=== PATIENT | male | born 1950 | race Caucasian/White ===

== ENCOUNTER 2017-01-04 10:03 | Observation (INO) | payer OTHER, MEDICARE ==
[2017-01-04] MEDS ORDERED: Zofran 4 MG/2 ML VIAL IV PRN (13:12)
[2017-01-04] MEDS ORDERED: Sodium Chloride 0.9% 1000 ML 1,000 ML IV SCH (13:15)
[2017-01-04] MEDS ORDERED: NON-FORMULARY ITEM (Albuterol/Ipratropium Cc** [Combivent Inhaler Common Canister**] 1 PUF IH PRN (13:15)
--- NOTE | 2017-01-04 13:25 | XRAY ---
Indication: Bronchitis. Comparison: None PA/lateral chest hyperinflated and clear. A few calcified granulomas. Heart is not enlarged. Vascularity normal. Bony thorax intact with mild osteopenia and degenerative changes. Impression: Nonacute hyperinflated chest with chronic features.
[2017-01-04 13:26] LABS: Mean Cell Volume 77.7 fl (78-100); Mean Corpuscular Hemoglobin 25.7 pg (26-32); Mean Platelet Volume 9.3 fl (6-9.5); Platelet Count 220 K/mm3 (150-450); Red Blood Count 5.21 M/mm3 (4.1-5.6); Red Cell Distribution Width 14.2 % (11.5-14.0); White Blood Count 5.9 K/mm3 (4.0-10.5)
[2017-01-04 14:05] LABS: ALBUMIN 3.2 g/dL (3.4-5.0); ANION GAP 13.3 MEQ/L (5-15); BILIRUBIN,TOTAL 0.3 mg/dL (0.2-1.0); Total Protein 7.2 gm/dL (6.4-8.2)
[2017-01-04] MEDS: DUONEB 0.5-3 MG/3 ml Neb IH SCH ×2 (14:08→19:45)
[2017-01-04 14:21] LABS: BAND 3 % (0.0-2.0); Eosinophil 3 % (0.00-3.0); Total Cells Counted 100
[2017-01-04 14:23] LABS: Platelet Estimate NORMAL (NORMAL)
[2017-01-04 14:26] LABS: ANISOCYTOSIS 1+
[2017-01-04] MEDS: Sodium Chloride 0.9% 1000 ML 1,000 ML IV SCH (14:41)
[2017-01-04] MEDS: MAALOX ES 30 ML UNIT DOSE PO PRN (20:09)
[2017-01-04] MEDS ORDERED: ZYLOPRIM 100 MG PO SCH (22:00)
[2017-01-04] MEDS ORDERED: NON-FORMULARY ITEM (Carvedilol [Coreg] 25 MG) PO SCH (22:00)
[2017-01-04] MEDS: COREG 12.5 MG PO SCH (22:48)
[2017-01-05] MEDS: DUONEB 0.5-3 MG/3 ml Neb IH SCH ×2 (00:49→07:08)
[2017-01-05] MEDS: Sodium Chloride 0.9% 1000 ML 1,000 ML IV SCH ×2 (01:10→11:02)
[2017-01-05] MEDS: COREG 12.5 MG PO SCH (08:04)
[2017-01-05] MEDS ORDERED: [UNRECOGNIZED DRUG - OTHER] PO SCH (10:00)
[2017-01-05] MEDS ORDERED: hydroDIURIL 25 MG PO SCH (10:00)
[2017-01-05] MEDS ORDERED: HYDROCHLOROTHIAZIDE PO SCH (10:00)
[2017-01-05] MEDS ORDERED: NORVASC 5 MG PO SCH (10:00)
[2017-01-05] MEDS ORDERED: LISINOPRIL PO SCH (10:00)
[2017-01-05] MEDS ORDERED: ECOTRIN 81 MG PO SCH (10:00)
[2017-01-05] MEDS ORDERED: Zestril 20 MG PO SCH (10:00)
[2017-01-05] MEDS ORDERED: NON-FORMULARY ITEM (Fluticasone/Vilanterol [Breo Ellipta 100-25 Mcg Inh] 1 EACH) IH SCH (10:00)
[2017-01-05 11:54] VITALS: BP 139/68
[2017-01-05] MEDS ORDERED: DUONEB 0.5-3 MG/3 ml Neb IH SCH (13:00)
[2017-01-05 15:23] LABS: Mean Cell Volume 78.3 fl (78-100); Mean Corpuscular Hemoglobin 25.4 pg (26-32); Mean Platelet Volume 9.5 fl (6-9.5); Platelet Count 182 K/mm3 (150-450); Red Cell Distribution Width 14.1 % (11.5-14.0)
[2017-01-05] MEDS: MAALOX ES 30 ML UNIT DOSE PO PRN (15:33)
[2017-01-05] MEDS ORDERED: LEVOFLOXACIN 750MG/150ML D5W 150 ML IV SCH (16:00)
[2017-01-05 16:14] LABS: ALBUMIN 2.7 g/dL (3.4-5.0); ALKALINE PHOSPHATASE 65 U/L (46-116); ANION GAP 11.6 MEQ/L (5-15); BILIRUBIN,TOTAL 0.2 mg/dL (0.2-1.0); BLOOD UREA NITROGEN 15 mg/dL (9-20); CHLORIDE 107 mEq/L (98-107); Carbon Dioxide 28.2 mEq/L (21-32); Glucose 103 MG/DL (70-110); Potassium 3.5 mEq/L (3.5-5.1); SGOT/AST 34 U/L (15-37); SGPT/ALT 43 U/L (12-78); SODIUM 143 mEq/L (136-145); Total Protein 6.2 gm/dL (6.4-8.2)
[2017-01-05 17:08] VITALS: PULSE 59; O2SAT 94
[2017-01-05 18:50] LABS: Basophil 1 % (0.0-1.0); Eosinophil 3 % (0.00-3.0); Total Cells Counted 100
[2017-01-05 18:54] LABS: ANISOCYTOSIS 1+; Platelet Estimate NORMAL (NORMAL)
[2017-01-05] MEDS ORDERED: Advair Hfa 115/21 Common canister IH SCH (19:00)
--- NOTE | 2017-01-06 13:24 | DS ---
DISCHARGE DIAGNOSES: 1) ACUTE BRONCHITIS, CLINICALLY IMPROVED. 2) DEHYDRATION, CLINICALLY IMPROVED. 3) HISTORY OF DIARRHEA, RESOLVING. 4) HISTORY OF HYPERTENSION/CORONARY ARTERY DISEASE. HOSPITAL COURSE: Keyur Guerra is a 66 year-old male with past medical history of hypertension, coronary artery disease. He was seen by Dr. Jc in office yesterday with symptoms of bronchitis and also he had developed some diarrhea. Please refer to Dr. cJ's history and physical for details. Essentially he was admitted with diagnosis of bronchitis and dehydration. Lab work up on admission was notable for unremarkable CBC. CMP was notable for BUN of 27, creatinine 1.87. He was placed on IV fluids, PRN Zofran. He was placed on nebulization. During his further course he improved clinically. At the time of my evaluation this afternoon, the patient that he was overall feeling better. He did have two episodes of diarrhea earlier today however denied any abdominal pain, nausea, vomiting. He was able to tolerate diet well. He was still having some cough. Appeared comfortable. He was wishing to go home. PHYSICAL EXAMINATION: VITAL SIGNS: Blood pressure 139/68, heart rate 61, respiratory rate 16, temperature 98F. Oxygen saturation 96% on room air. HEENT: Normocephalic. No pallor or icterus is noted. NECK: No JVD is present. CVS: S1, S2 present. RESPIRATORY: Breath sounds are bilaterally diminished. ABDOMEN: Obese, soft, nontender. NEURO: He is alert, oriented x3. EXTREMITIES: No edema on bilateral lower extremities. LABORATORY DATA AND TESTS: Labs from today show CBC with white blood cell 4, hemoglobin 11.7, hematocrit 33. Today's CMP with BUN 15, creatinine 1.19. Chest x-ray from yesterday had shown no acute changes. Medications were reviewed. ASSESSMENT: As outlined in discharge diagnosis: PLAN: The patient was admitted with bronchitis and dehydration. He was placed on IV fluids and improved clinically, remained hemodynamically stable. Also he did report some diarrhea. Work up for that was ordered. However eventually his diarrhea had resolved and therefore work up was not sent. On evaluation today I started the patient on antibiotic for symptoms of bronchitis. He did receive one dose IV prior to discharge and will continue on those orally upon discharge. The rest of his course was essentially more or less unremarkable. He improved clinically. He ambulated with stable oxygen saturation. As noted earlier he has been tolerating diet. He overall feels well and was wishing to go home. He was discharged home in stable condition. Please refer to discharge medication list from 01/05/2017 for details of medications on discharge. Essentially the patient will be continued on his home medications. I have advised him to drink ample p.o. fluids. He was advised to start oral Levaquin as directed (every other day for the next four days) until complete. I advised him to make follow up appointment in the office in one week. Compliance with diet and medications was stressed. I have advised to return to the Emergency [facility] if any new signs and symptoms or reappearance of previous signs and symptoms are noted. Additionally, will also follow up blood work as outpatient next week. The patient's clinical condition, work-up results and plan of management and plan after discharge as noted above were discussed with patient. He seem to be in understanding and agreement. Discussed with patient's nurse. Please refer to the patient's chart, diagnostic work up and consult notes for details. Please refer to medication list from 01/05/2017 for details of medications on discharge.
[2017-01-06] MEDS ORDERED: Levofloxacin 500MG/100ML D5W 100 ML IV SCH (16:00)
== END 2017-01-05 17:42 | disposition home or self-care (01) ==
LOC: MED SURG 10:20
PROVIDERS: ADMIT General Practice; ATTEND General Practice
DX: J20.9 Acute bronchitis, unspecified (principal); A09 Infectious gastroenteritis and colitis, unspecified; E86.0 Dehydration; R19.7 Diarrhea, unspecified; I10 Essential (primary) hypertension; I25.10 Atherosclerotic heart disease of native coronary artery without angina pectoris
CPT/HCPCS: 36415; 71020; 80053; 85025; 94640; 94760; G0378; J1956

== ENCOUNTER 2018-03-09 14:30 | Observation (INO) | payer OTHER, MEDICARE ==
[2018-03-09] MEDS ORDERED: Sodium Chloride 0.9% 1000 ML 1,000 ML IV SCH (15:00)
[2018-03-09] MEDS ORDERED: DUONEB 0.5-3 MG/3 ml Neb IH ONE (15:19)
[2018-03-09] MEDS: DUONEB 0.5-3 MG/3 ml Neb IH SCH ×2 (15:22→19:03)
[2018-03-09 15:41] LABS: Hemoglobin 10.8 gm/dl (12.5-18.0); Mean Corpuscular Hemoglobin 25.5 pg (26-32); Mean Corpuscular Hgb Concent. 32.7 g/dl (32-36); Mean Platelet Volume 9.1 fl (6-9.5); Platelet Count 300 K/mm3 (150-450); Red Blood Count 4.23 M/mm3 (4.1-5.6); Red Cell Distribution Width 13.7 % (11.5-14.0); White Blood Count 10.3 K/mm3 (4.0-10.5)
[2018-03-09 15:58] LABS: ALBUMIN 3.2 g/dL (3.5-5.0); ALKALINE PHOSPHATASE 75 U/L (38-126); ANION GAP 11.5 MEQ/L (5-15); BLOOD UREA NITROGEN 13 mg/dL (9-20); CHLORIDE 97 mmol/L (98-107); Calcium 8.7 mg/dL (8.4-10.2); Carbon Dioxide 29 mmol/L (22-30); Creatinine 1 1.11 mg/dL (0.66-1.25); Glucose 102 mg/dL (74-106); Potassium 3.3 mmol/L (3.5-5.1); SGOT/AST 27 U/L (17-59); SGPT/ALT 21 U/L (0-50); SODIUM 135 mmol/L (137-145); Total Protein 6.5 g/dL (6.3-8.2)
--- NOTE | 2018-03-09 15:59 | XRAY ---
Indication: Bronchitis. Comparison: January 04, 2017. PA/lateral chest again hyperinflated with a few incidental calcified granulomas. No focal infiltrate, consolidation, or large effusion. Heart is not enlarged. Bony thorax intact again with mild degenerative changes. Impression: Stable nonacute hyperinflated chest with chronic features.
[2018-03-09] MEDS: ROCEPHIN 1 Gm-D5w 50 ml Bag** 1 G/50 ML IVPB IV SCH (16:07)
[2018-03-09 16:09] LABS: NT PRO BNP 696 pg/mL (0-900); TROPONIN < 0.012 ng/mL (0.000-0.034)
[2018-03-09] MEDS: solu-MEDROL 125 MG IV SCH ×2 (16:09→22:06)
[2018-03-09] MEDS: Zithromax 500 MG/ 250 ML NaCl Premix 500 MG/250 ML IVPB IV SCH (16:49)
[2018-03-09] MEDS: Advair Hfa 115/21 Common canister IH SCH (19:05)
--- NOTE | 2018-03-09 19:42 | PCM.HP ---
History of Present Illness - Chief Complaint Chief Complaint: c/o cough and shortness of breath History of Present Illness: is a 67 year old male.Came to the office with complaining of worsening shortness of breath, fever, chills for last 4 days. Patient is also complaining of generalized weakness and lethargically and having chest heaviness. - Review of Systems Constitutional: Fever, Weakness, No Chills Eyes: No Symptoms Ears, Nose, & Throat: No Symptoms Respiratory: Cough, Orthopnea, Short Of Breath, Wheezing Cardiac: No Chest Pain, No Edema, No Syncope Abdominal/Gastrointestinal: No Abdominal Pain, No Nausea, No Vomiting, No Diarrhea Genitourinary Symptoms: No Dysuria Musculoskeletal: No Back Pain, No Neck Pain Skin: No Rash Neurological: No Dizziness, No Focal Weakness, No Sensory Changes Psychological: No Symptoms Endocrine: No Symptoms Hematologic/Lymphatic: No Symptoms Immunological/Allergic: No Symptoms Medications & Allergies Home Medications: Home Medication List Aspirin EC 81 mg [Ecotrin 81 mg] 81 mg PO DAILY 11/19/13 [History Confirmed 03/09/18] Carvedilol [Coreg] 25 mg PO BID 11/19/13 [History Confirmed 03/09/18] Lisinopril/Hydrochlorothiazide [Lisinopril-Hctz 20-12.5 mg Tab] 1 tablet PO DAILY 11/19/13 [History Confirmed 03/09/18] Albuterol/Ipratropium cc [Combivent Inhaler COMMON CANISTER] 1 puff IH QIDPRN PRN 01/04/17 [History Confirmed 03/09/18] Allopurinol 100 mg [Zyloprim 100 mg] 100 mg PO HS 01/04/17 [History Confirmed 03/09/18] Amlodipine Besylate 5 mg [Norvasc 5 mg] 5 mg PO DAILY 01/04/17 [History Confirmed 03/09/18] Fluticasone/Vilanterol [Breo Ellipta 100-25 Mcg INH] 1 each IH DAILY 01/04/17 [ History Confirmed 03/09/18] Albuterol 2.5 mg/3 ml Neb [Proventil 2.5 mg/3 ml Neb] 1 neb IH Q4HPRN PRN 03/09/18 [History Confirmed 03/09/18] Allergies/Adverse Reactions: Allergies Allergy/AdvReac Type Severity Reaction Status Date / Time No Known Drug Allergies Allergy Unverified 11/19/13 16:12 - Past Medical History Past Medical History: Yes Neurological History: No Pertinent History ENT History: No Pertinent History Cardiac History: Hypertension Respiratory History: Asthma, Bronchitis, COPD Endocrine Medical History: No Pertinent History Musculoskelatal History: No Pertinent History GI Medical History: No Pertinent History History: No Pertinent History Pyscho-Social History: No Pertinent History Male Reproductive Disorders: No Pertinent History - Past Surgical History Past Surgical History: Yes Neuro Surgical History: No Pertinent History Cardiac History: No Pertinent History Respiratory Surgery: No Pertinent History GI Surgical History: No Pertinent History Genitourinary Surgical Hx: No Pertinent History Musculskeletal Surgical Hx: Joint Replacement, Orthopedic Surgery Male Surgical History: No Pertinent History Other Surgical History: LEFT HIP REPLACEMENT. LEFT KNEE REPLACEMENT - Social History Smoking Status: Former smoker Exposure to second hand smoke: No Alcohol: Rarely Drug Use: none - Physical Exam Vital Signs: Vital Signs - 24 hr Temp Pulse Resp BP Pulse Ox 03/09/18 15:23 97.7 F 90 22 168/88 96 03/09/18 15:20 53 L 20 95 03/09/18 14:52 97.7 F 90 22 168/88 96 General Appearance: no apparent distress, alert Neurologic Exam: alert, oriented x 3, cooperative, normal mood/affect, nml cerebellar function, nml station & gait, sensation nml, No motor deficits Eye Exam: PERRL/EOMI, eyes nml inspection Ears, Nose, Throat Exam: normal ENT inspection, TMs normal, pharynx normal, moist mucous membranes Neck Exam: normal inspection, non-tender, supple, full range of motion Respiratory Exam: diminished breath sounds, No respiratory distress Cardiovascular Exam: regular rate/rhythm, normal heart sounds, normal peripheral pulses Gastrointestinal/Abdomen Exam: soft, normal bowel sounds, No tenderness, No mass Back Exam: normal inspection, normal range of motion, No CVA tenderness, No vertebral tenderness Extremity Exam: normal inspection, normal range of motion, pelvis stable Skin Exam: normal color, warm, dry, No rash Lymphatic Exam: No adenopathy Results - Labs Lab/Micro Results: Lab Results-Last 24 Hours 03/09/18 03/09/18 Range/Units 15:30 15:30 WBC 10.3 (4.0-10.5) K/mm3 RBC 4.23 (4.1-5.6) M/mm3 Hgb 10.8 L (12.5-18.0) gm/dl Hct 33.0 L (42-50) % MCV 78.0 (78-100) fl MCH 25.5 L (26-32) pg MCHC 32.7 (32-36) g/dl RDW 13.7 (11.5-14.0) % Plt Count 300 (150-450) K/mm3 MPV 9.1 (6-9.5) fl Sodium 135 L (137-145) mmol/L Potassium 3.3 L (3.5-5.1) mmol/L Chloride 97 L (98-107) mmol/L Carbon Dioxide 29 (22-30) mmol/L Anion Gap 11.5 (5-15) MEQ/L BUN 13 (9-20) mg/dL Creatinine 1.11 (0.66-1.25) mg/dL Estimated GFR > 60.0 ML/MIN Glucose 102 (74-106) mg/dL Calcium 8.7 (8.4-10.2) mg/dL Total Bilirubin 0.30 (0.2-1.3) mg/dL AST 27 (17-59) U/L ALT 21 (0-50) U/L Alkaline Phosphatase 75 (38-126) U/L Troponin I < 0.012 (0.000-0.034) ng/mL NT-Pro-B Natriuret Pep 696 (0-900) pg/mL Serum Total Protein 6.5 (6.3-8.2) g/dL Albumin 3.2 L (3.5-5.0) g/dL - Radiology Impressions Radiology Exams & Impressions: Radiology Procedures Category Date Time Status CHEST 2 VIEWS (PA AND LAT) Routine Exams 03/09/18 15:30 Completed - Other Procedures and Tests Respiratory Therapy 03/09/18 15:20 Respiratory Nebulizer 1900,0100,0700,1300 03/09/18 19:00 Respiratory MDI BID Assessment/Plan (1) Bronchitis Current Visit: Yes Status: Acute Assessment & Plan: Chief Complaint Diagnosis acute exac Bronchitis Allergies Allergy/AdvReac Type Severity Reaction Status Date / Time No Known Drug Allergies Allergy Unverified 11/19/13 16:12 Vital Signs (Last 24 hours) Temp Pulse Resp BP Pulse Ox 03/09/18 15:23 97.7 F 90 22 168/88 96 03/09/18 15:20 53 L 20 95 03/09/18 14:52 97.7 F 90 22 168/88 96 Home Medications Medication Instructions Recorded Confirmed Last Taken Type Albuterol 2.5 mg/3 ml Neb 1 neb IH Q4HPRN PRN 03/09/18 03/09/18 Unknown History [Proventil 2.5 mg/3 ml Neb] Current Medications Generic Name Dose Route Start Last Admin Trade Name Freq PRN Reason Stop Dose Admin Albuterol/Ipratropium 3 ml 03/09/18 15:00 03/09/18 19:03 Duoneb 0.5-3 Mg/3 Ml Neb IH 04/08/18 14:59 3 ml Q6HRT LEA Administration Allopurinol 100 mg 03/09/18 22:00 Zyloprim 100 Mg PO 04/08/18 21:59 HS LEA Amlodipine Besylate 5 mg 03/10/18 10:00 Norvasc 5 Mg PO 04/09/18 09:59 DAILY LEA Aspirin 81 mg 03/10/18 10:00 Ecotrin 81 Mg PO 04/09/18 09:59 DAILY LEA Carvedilol 25 mg 03/09/18 22:00 Coreg 12.5 Mg PO 04/08/18 21:59 BID LEA Hydrochlorothiazide 12.5 mg 03/10/18 10:00 Hydrodiuril 25 Mg PO 04/09/18 09:59 DAILY LEA Sodium Chloride 1,000 mls @ 40 mls/hr 03/09/18 15:00 03/09/18 16:04 Sodium Chloride 0.9% 1000 Ml IV 04/08/18 14:59 40 mls/hr .Q24H LEA Administration Ceftriaxone Sodium/Dextrose 1 g in 50 mls @ 100 mls/hr 03/09/18 15:00 16:07 Rocephin 1 Gm-D5w 50 Ml Bag IV 04/08/18 14:59 100 mls/hr Q24H10 LEA Administration Azithromycin 500 mg in 250 mls @ 125 mls/hr 03/09/18 16:00 03/09/18 16:49 Zithromax 500 Mg/ 250 Ml Nacl Premix IV 04/08/18 15:59 125 mls/hr Q24H LEA Administration Lisinopril 20 mg 03/10/18 10:00 Zestril 20 Mg PO 04/09/18 09:59 DAILY LEA Methylprednisolone Sodium Succinate 80 mg 03/09/18 15:00 03/09/18 16:09 Solu-Medrol 125 Mg IV 04/08/18 14:59 80 mg Q8HT LEA Administration Fluticasone/Salmeterol 2 puff 03/09/18 19:00 03/09/18 19:05 Advair Hfa 115/21 Common Canister* IH 04/08/18 18:59 2 puff BIDRT LEA Administration Discontinued Medications Generic Name Dose Route Start Last Admin Trade Name Freq PRN Reason Stop Dose Admin Albuterol/Ipratropium Confirm 03/09/18 15:19 Duoneb 0.5-3 Mg/3 Ml Neb Administered 03/09/18 15:20 Dose 3 ml IH .STK-MED ONE Intake & Output (Last 24 hours) 03/07/18 03/08/18 03/09/18 03/10/18 11:59 11:59 11:59 11:59 Intake Total 480 Balance 480 Weight 110.9 kg Laboratory Results (Last 24 hours) 03/09/18 03/09/18 15:30 15:30 WBC 10.3 RBC 4.23 Hgb 10.8 L Hct 33.0 L MCV 78.0 MCH 25.5 L MCHC 32.7 RDW 13.7 Plt Count 300 MPV 9.1 Sodium 135 L Potassium 3.3 L Chloride 97 L Carbon Dioxide 29 Anion Gap 11.5 BUN 13 Creatinine 1.11 Estimated GFR > 60.0 Glucose 102 Calcium 8.7 Total Bilirubin 0.30 AST 27 ALT 21 Alkaline Phosphatase 75 Troponin I < 0.012 NT-Pro-B Natriuret Pep 696 Serum Total Protein 6.5 Albumin 3.2 L Orders (Last 24 hours) Category Date Time Status Activity as Tolerated TOLERATED Activity 03/09/18 15:16 Active Miscellaneous Nursing Order ROUTINE Care 04/20/18 15:[address] in Observation ROUTINE Care 03/09/18 14:38 Active Regular Diet Diet 03/09/18 Dinner Active CHEST 2 VIEWS (PA AND LAT) Routine Exams 03/09/18 15:30 Completed CBC Urgent Lab 03/09/18 15:30 Completed CMP Urgent Lab 03/09/18 15:30 Completed NT PRO BNP Urgent Lab 03/09/18 15:30 Completed TROPONIN Urgent Lab 03/09/18 15:30 Completed Albuterol/Ipratropium 3ml Neb* [DUONEB 0.5-3 MG/3 ml Med 03/09/18 15:19 Discontinued Neb] 3 ml IH .STK-MED ONE Albuterol/Ipratropium 3ml Neb* [DUONEB 0.5-3 MG/3 ml Med 03/09/18 15:00 Active Neb] 3 ml IH Q6HRT Allopurinol 100 mg [Zyloprim 100 mg] Med 03/09/18 22:00 Active 100 mg PO HS Amlodipine Besylate 5 mg [Norvasc 5 mg] Med 03/10/18 10:00 Active 5 mg PO DAILY Aspirin EC 81 mg [Ecotrin 81 mg] Med 03/10/18 10:00 Active 81 mg PO DAILY Azithromycin 500 mg/250 ml [Zithromax 500 MG/ 250 ML Med 03/09/18 16:00 Active NaCl Premix] 500 mg in 250 ml IV Q24H Carvedilol 12.5 mg [Coreg 12.5 mg] Med 03/09/18 22:00 Active 25 mg PO BID Ceftriaxone 1 GM/50 ML PREMIX* [ROCEPHIN 1 Gm-D5w 50 ml Med 03/09/18 15:00 Active Bag] 1 g in 50 ml IV Q24H10 Fluticasone/Salmeterol 115/21 [Advair Hfa 115/21 Common Med 03/09/18 19:00 Active canister*] 2 puff IH BIDRT Hydrochlorothiazide 25 mg [hydroDIURIL 25 MG] Med 03/10/18 10:00 Active 12.5 mg PO DAILY Lisinopril 20 mg [Zestril 20 MG] Med 03/10/18 10:00 Active 20 mg PO DAILY Methylprednis Sod Succ 125 mg* [solu-MEDROL 125 MG] Med 03/09/18 15:00 Active 80 mg IV Q8HT NaCl 0.9% 1000 ml [Sodium Chloride 0.9% 1000 ML] 1,000 Med 03/09/18 15:00 Active ml IV 40 mls/hr EKG ROUTINE RT 03/09/18 15:20 Completed RT Screen per Nursing Assess ONCE RT 03/09/18 15:46 Completed Respiratory MDI BID RT 03/09/18 19:00 Active Respiratory Nebulizer 1900,0100,0700,1300 RT 03/09/18 15:20 Active Respiratory Therapy Consult ROUTINE RT 03/09/18 15:20 Completed Code(s): J40 - BRONCHITIS, NOT SPECIFIED ACUTE OR CHRONIC
[2018-03-09] MEDS ORDERED: NON-FORMULARY ITEM (Carvedilol [Coreg] 25 MG) PO SCH (22:00)
[2018-03-09] MEDS: ZYLOPRIM 100 MG PO SCH (22:04)
[2018-03-09] MEDS: COREG 12.5 MG PO SCH (22:04)
[2018-03-10] MEDS: DUONEB 0.5-3 MG/3 ml Neb IH SCH ×4 (01:16→18:59)
[2018-03-10] MEDS: solu-MEDROL 125 MG IV SCH ×3 (06:37→22:48)
[2018-03-10] MEDS: Advair Hfa 115/21 Common canister IH SCH ×2 (06:40→19:03)
--- NOTE | 2018-03-10 08:04 | PCM.NOTE ---
Date and Time: 03/10/18 0800 Subjective Assessment: still short of breath, trouble urination - Review of Systems Constitutional: No Fever, No Chills Eyes: No Symptoms Ears, Nose, & Throat: No Symptoms Respiratory: Cough, Short Of Breath Cardiac: No Chest Pain, No Edema, No Syncope Abdominal/Gastrointestinal: No Abdominal Pain, No Nausea, No Vomiting, No Diarrhea Genitourinary Symptoms: Urinary Retention, No Dysuria Musculoskeletal: No Back Pain, No Neck Pain Skin: No Rash Neurological: No Dizziness, No Focal Weakness, No Sensory Changes Psychological: No Symptoms Endocrine: No Symptoms Hematologic/Lymphatic: No Symptoms Immunological/Allergic: No Symptoms Objective Exam General Appearance: no apparent distress, alert Neurologic Exam: alert, oriented x 3, cooperative, normal mood/affect, nml cerebellar function, sensation nml, No motor deficits Skin Exam: normal color, warm, dry Eye Exam: PERRL, EOMI, eyes nml inspection Ears, Nose, Throat Exam: normal ENT inspection, pharynx normal, moist mucous membranes Neck Exam: normal inspection, non-tender, supple, full range of motion Respiratory Exam: normal breath sounds, crackles/rales, rhonchi, wheezing, No respiratory distress Cardiovascular Exam: regular rate/rhythm, normal heart sounds Gastrointestinal/Abdomen Exam: soft, No tenderness, No mass Extremity Exam: normal inspection, normal range of motion Back Exam: normal inspection, normal range of motion, No CVA tenderness, No vertebral tenderness Male Genitalia Exam: deferred Rectal Exam: deferred OBJECTIVE DATA Vital Signs: Vital Signs - 24 hr Temp Pulse Resp BP Pulse Ox 03/10/18 07:25 97.9 F 70 18 199/86 94 L 03/10/18 06:52 75 18 96 03/10/18 04:00 97.9 F 75 19 156/76 96 03/10/18 01:16 72 15 95 03/10/18 00:00 97.7 F 65 18 172/80 96 03/09/18 20:00 97.5 F 69 17 183/82 94 L 03/09/18 19:03 67 17 95 03/09/18 15:23 97.7 F 90 22 168/88 96 03/09/18 15:20 53 L 20 95 03/09/18 14:52 97.7 F 90 22 168/88 96 Pain Assessment - Last Documented Pain Intensity 0 Pain Scale Used FLACC Intake and Output: Intake & Output 03/07/18 03/08/18 03/09/18 03/10/18 11:59 11:59 11:59 11:59 Intake Total 2331 Balance 2331 Weight 110.9 kg Lab Results: Lab Results-Last 24 Hours 03/09/18 03/09/18 Range/Units 15:30 15:30 WBC 10.3 (4.0-10.5) K/mm3 RBC 4.23 (4.1-5.6) M/mm3 Hgb 10.8 L (12.5-18.0) gm/dl Hct 33.0 L (42-50) % MCV 78.0 (78-100) fl MCH 25.5 L (26-32) pg MCHC 32.7 (32-36) g/dl RDW 13.7 (11.5-14.0) % Plt Count 300 (150-450) K/mm3 MPV 9.1 (6-9.5) fl Sodium 135 L (137-145) mmol/L Potassium 3.3 L (3.5-5.1) mmol/L Chloride 97 L (98-107) mmol/L Carbon Dioxide 29 (22-30) mmol/L Anion Gap 11.5 (5-15) MEQ/L BUN 13 (9-20) mg/dL Creatinine 1.11 (0.66-1.25) mg/dL Estimated GFR > 60.0 ML/MIN Glucose 102 (74-106) mg/dL Calcium 8.7 (8.4-10.2) mg/dL Total Bilirubin 0.30 (0.2-1.3) mg/dL AST 27 (17-59) U/L ALT 21 (0-50) U/L Alkaline Phosphatase 75 (38-126) U/L Troponin I < 0.012 (0.000-0.034) ng/mL NT-Pro-B Natriuret Pep 696 (0-900) pg/mL Serum Total Protein 6.5 (6.3-8.2) g/dL Albumin 3.2 L (3.5-5.0) g/dL Radiology Exams: Radiology Procedures Category Date Time Status CHEST 2 VIEWS (PA AND LAT) Routine Exams 03/09/18 15:30 Completed Assessment/Plan (1) Bronchitis Current Visit: Yes Status: Acute Assessment & Plan: Chief Complaint Diagnosis c/o cough and shortness of breath Allergies Allergy/AdvReac Type Severity Reaction Status Date / Time No Known Drug Allergies Allergy Unverified 11/19/13 16:12 Vital Signs (Last 24 hours) Temp Pulse Resp BP Pulse Ox 03/10/18 07:25 97.9 F 70 18 199/86 94 L 03/10/18 06:52 75 18 96 03/10/18 04:00 97.9 F 75 19 156/76 96 03/10/18 01:16 72 15 95 03/10/18 00:00 97.7 F 65 18 172/80 96 03/09/18 20:00 97.5 F 69 17 183/82 94 L 03/09/18 19:03 67 17 95 03/09/18 15:23 97.7 F 90 22 168/88 96 03/09/18 15:20 53 L 20 95 03/09/18 14:52 97.7 F 90 22 168/88 96 Home Medications Medication Instructions Recorded Confirmed Last Taken Type Albuterol 2.5 mg/3 ml Neb 1 neb IH Q4HPRN PRN 03/09/18 03/09/18 Unknown History [Proventil 2.5 mg/3 ml Neb] Current Medications Generic Name Dose Route Start Last Admin Trade Name Freq PRN Reason Stop Dose Admin Albuterol/Ipratropium 3 ml 03/09/18 15:00 03/10/18 06:40 Duoneb 0.5-3 Mg/3 Ml Neb IH 04/08/18 14:59 3 ml Q6HRT LEA Administration Allopurinol 100 mg 03/09/18 22:00 03/09/18 22:04 Zyloprim 100 Mg PO 04/08/18 21:59 100 mg HS LEA Administration Amlodipine Besylate 5 mg 03/10/18 10:00 Norvasc 5 Mg PO 04/09/18 09:59 DAILY LEA Aspirin 81 mg 03/10/18 10:00 Ecotrin 81 Mg PO 04/09/18 09:59 DAILY LEA Carvedilol 25 mg 03/09/18 22:00 03/09/18 22:04 Coreg 12.5 Mg PO 04/08/18 21:59 25 mg BID LEA Administration Hydrochlorothiazide 12.5 mg 03/10/18 10:00 Hydrodiuril 25 Mg PO 04/09/18 09:59 DAILY LEA Sodium Chloride 1,000 mls @ 40 mls/hr 03/09/18 15:00 03/09/18 16:04 Sodium Chloride 0.9% 1000 Ml IV 04/08/18 14:59 40 mls/hr .Q24H LEA Administration Ceftriaxone Sodium/Dextrose 1 g in 50 mls @ 100 mls/hr 03/09/18 15:00 16:07 Rocephin 1 Gm-D5w 50 Ml Bag IV 04/08/18 14:59 100 mls/hr Q24H10 LEA Administration Azithromycin 500 mg in 250 mls @ 125 mls/hr 03/09/18 16:00 03/09/18 16:49 Zithromax 500 Mg/ 250 Ml Nacl Premix IV 04/08/18 15:59 125 mls/hr Q24H LEA Administration Lisinopril 20 mg 03/10/18 10:00 Zestril 20 Mg PO 04/09/18 09:59 DAILY LEA Methylprednisolone Sodium Succinate 80 mg 03/09/18 15:00 03/10/18 06:37 Solu-Medrol 125 Mg IV 04/08/18 14:59 80 mg Q8HT LEA Administration Fluticasone/Salmeterol 2 puff 03/09/18 19:00 03/10/18 06:40 Advair Hfa 115/21 Common Canister* IH 04/08/18 18:59 2 puff BIDRT LEA Administration Tamsulosin HCl 0.4 mg 03/10/18 10:00 Flomax 0.4 Mg PO 04/09/18 09:59 DAILY LEA Discontinued Medications Generic Name Dose Route Start Last Admin Trade Name Freq PRN Reason Stop Dose Admin Albuterol/Ipratropium Confirm 03/09/18 15:19 Duoneb 0.5-3 Mg/3 Ml Neb Administered 03/09/18 15:20 Dose 3 ml IH .STK-MED ONE Intake & Output (Last 24 hours) 03/07/18 03/08/18 03/09/18 03/10/18 11:59 11:59 11:59 11:59 Intake Total 2331 Balance 2331 Weight 110.9 kg Laboratory Results (Last 24 hours) 03/09/18 03/09/18 15:30 15:30 WBC 10.3 RBC 4.23 Hgb 10.8 L Hct 33.0 L MCV 78.0 MCH 25.5 L MCHC 32.7 RDW 13.7 Plt Count 300 MPV 9.1 Sodium 135 L Potassium 3.3 L Chloride 97 L Carbon Dioxide 29 Anion Gap 11.5 BUN 13 Creatinine 1.11 Estimated GFR > 60.0 Glucose 102 Calcium 8.7 Total Bilirubin 0.30 AST 27 ALT 21 Alkaline Phosphatase 75 Troponin I < 0.012 NT-Pro-B Natriuret Pep 696 Serum Total Protein 6.5 Albumin 3.2 L Orders (Last 24 hours) Category Date Time Status Activity as Tolerated TOLERATED Activity 03/09/18 15:16 Active Miscellaneous Nursing Order ROUTINE Care 03/09/18 15:[address] in Observation ROUTINE Care 03/09/18 14:38 Active Regular Diet Diet 03/09/18 Dinner Active CHEST 2 VIEWS (PA AND LAT) Routine Exams 03/09/18 15:30 Completed CBC Urgent Lab 03/09/18 15:30 Completed CMP Urgent Lab 03/09/18 15:30 Completed NT PRO BNP Urgent Lab 03/09/18 15:30 Completed TROPONIN Urgent Lab 03/09/18 15:30 Completed Albuterol/Ipratropium 3ml Neb* [DUONEB 0.5-3 MG/3 ml Med 03/09/18 15:19 Discontinued Neb] 3 ml IH .STK-MED ONE Albuterol/Ipratropium 3ml Neb* [DUONEB 0.5-3 MG/3 ml Med 03/09/18 15:00 Active Neb] 3 ml IH Q6HRT Allopurinol 100 mg [Zyloprim 100 mg] Med 03/09/18 22:00 Active 100 mg PO HS Amlodipine Besylate 5 mg [Norvasc 5 mg] Med 03/10/18 10:00 Active 5 mg PO DAILY Aspirin EC 81 mg [Ecotrin 81 mg] Med 03/10/18 10:00 Active 81 mg PO DAILY Azithromycin 500 mg/250 ml [Zithromax 500 MG/ 250 ML Med 03/09/18 16:00 Active NaCl Premix] 500 mg in 250 ml IV Q24H Carvedilol 12.5 mg [Coreg 12.5 mg] Med 03/09/18 22:00 Active 25 mg PO BID Ceftriaxone 1 GM/50 ML PREMIX* [ROCEPHIN 1 Gm-D5w 50 ml Med 03/09/18 15:00 Active Bag] 1 g in 50 ml IV Q24H10 Fluticasone/Salmeterol 115/21 [Advair Hfa 115/21 Common Med 03/09/18 19:00 Active canister*] 2 puff IH BIDRT Hydrochlorothiazide 25 mg [hydroDIURIL 25 MG] Med 03/10/18 10:00 Active 12.5 mg PO DAILY Lisinopril 20 mg [Zestril 20 MG] Med 03/10/18 10:00 Active 20 mg PO DAILY Methylprednis Sod Succ 125 mg* [solu-MEDROL 125 MG] Med 03/09/18 15:00 Active 80 mg IV Q8HT NaCl 0.9% 1000 ml [Sodium Chloride 0.9% 1000 ML] 1,000 Med 03/09/18 15:00 Active ml IV 40 mls/hr Tamsulosin HCl 0.4 mg [Flomax 0.4 MG] Med 03/10/18 10:00 Active 0.4 mg PO DAILY EKG ROUTINE RT 03/09/18 15:20 Completed RT Screen per Nursing Assess ONCE RT 03/09/18 15:46 Completed Respiratory MDI BID RT 03/09/18 19:00 Active Respiratory Nebulizer 1900,0100,0700,1300 RT 03/09/18 15:20 Active Respiratory Therapy Consult ROUTINE RT 03/09/18 15:20 Completed Code(s): J40 - BRONCHITIS, NOT SPECIFIED ACUTE OR CHRONIC
[2018-03-10] MEDS: COREG 12.5 MG PO SCH ×2 (08:18→22:47)
[2018-03-10] MEDS: ROCEPHIN 1 Gm-D5w 50 ml Bag** 1 G/50 ML IVPB IV SCH (08:19)
[2018-03-10] MEDS: Zestril 20 MG PO SCH (08:24)
[2018-03-10] MEDS: Flomax 0.4 MG PO SCH (08:24)
[2018-03-10] MEDS: ECOTRIN 81 MG PO SCH (08:25)
[2018-03-10] MEDS: NORVASC 5 MG PO SCH (08:25)
[2018-03-10] MEDS: hydroDIURIL 25 MG PO SCH (08:25)
[2018-03-10] MEDS ORDERED: LISINOPRIL PO SCH (10:00)
[2018-03-10] MEDS ORDERED: HYDROCHLOROTHIAZIDE PO SCH (10:00)
[2018-03-10] MEDS ORDERED: NON-FORMULARY ITEM (Fluticasone/Vilanterol [Breo Ellipta 100-25 Mcg Inh] 1 EACH) IH SCH (10:00)
[2018-03-10] MEDS ORDERED: [UNRECOGNIZED DRUG - OTHER] PO SCH (10:00)
[2018-03-10] MEDS: TYLENOL 325 MG PO PRN (13:08)
[2018-03-10] MEDS ORDERED: Sodium Chloride 0.9% 10 ML FLUSH Syringe IV PRN (13:16)
[2018-03-10] MEDS ORDERED: Sodium Chloride 0.9% 10 ML FLUSH Syringe IV SCH (14:00)
[2018-03-10] MEDS: Zithromax 500 MG/ 250 ML NaCl Premix 500 MG/250 ML IVPB IV SCH (16:17)
[2018-03-10] MEDS: ZYLOPRIM 100 MG PO SCH (22:48)
[2018-03-11] MEDS: DUONEB 0.5-3 MG/3 ml Neb IH SCH ×4 (01:03→19:11)
[2018-03-11] MEDS: solu-MEDROL 125 MG IV SCH (06:22)
[2018-03-11] MEDS: Advair Hfa 115/21 Common canister IH SCH ×2 (06:45→19:12)
[2018-03-11] MEDS ORDERED: solu-MEDROL 125 MG IV SCH (10:00)
[2018-03-11] MEDS: hydroDIURIL 25 MG PO SCH (10:46)
[2018-03-11] MEDS: COREG 12.5 MG PO SCH ×2 (10:47→22:04)
[2018-03-11] MEDS: Flomax 0.4 MG PO SCH (10:47)
[2018-03-11] MEDS: ECOTRIN 81 MG PO SCH (10:47)
[2018-03-11] MEDS: NORVASC 5 MG PO SCH (10:47)
[2018-03-11] MEDS: ROCEPHIN 1 Gm-D5w 50 ml Bag** 1 G/50 ML IVPB IV SCH (10:48)
[2018-03-11] MEDS: Zestril 20 MG PO SCH (10:49)
[2018-03-11] MEDS: TYLENOL 325 MG PO PRN (15:56)
[2018-03-11] MEDS: Zithromax 500 MG/ 250 ML NaCl Premix 500 MG/250 ML IVPB IV SCH (15:56)
--- NOTE | 2018-03-11 20:33 | PCM.NOTE ---
Date and Time: 03/11/182030 Subjective Assessment: breathing better - Review of Systems Constitutional: No Fever, No Chills Eyes: No Symptoms Ears, Nose, & Throat: No Symptoms Respiratory: Short Of Breath, No Cough Cardiac: No Chest Pain, No Edema, No Syncope Abdominal/Gastrointestinal: No Abdominal Pain, No Nausea, No Vomiting, No Diarrhea Genitourinary Symptoms: No Dysuria Musculoskeletal: No Back Pain, No Neck Pain Skin: No Rash Neurological: No Dizziness, No Focal Weakness, No Sensory Changes Psychological: No Symptoms Endocrine: No Symptoms Hematologic/Lymphatic: No Symptoms Immunological/Allergic: No Symptoms Objective Exam General Appearance: no apparent distress, alert Neurologic Exam: alert, oriented x 3, cooperative, normal mood/affect, nml cerebellar function, sensation nml, No motor deficits Skin Exam: normal color, warm, dry Eye Exam: PERRL, EOMI, eyes nml inspection Ears, Nose, Throat Exam: normal ENT inspection, pharynx normal, moist mucous membranes Neck Exam: normal inspection, non-tender, supple, full range of motion Respiratory Exam: normal breath sounds, rhonchi, wheezing, No respiratory distress Cardiovascular Exam: regular rate/rhythm, normal heart sounds Gastrointestinal/Abdomen Exam: soft, No tenderness, No mass Extremity Exam: normal inspection, normal range of motion Back Exam: normal inspection, normal range of motion, No CVA tenderness, No vertebral tenderness Male Genitalia Exam: deferred Rectal Exam: deferred OBJECTIVE DATA Vital Signs: Vital Signs - 24 hr Temp Pulse Resp BP Pulse Ox 03/11/18 19:43 98.1 F 76 26 H 174/79 95 03/11/18 19:12 74 22 95 03/11/18 16:00 98.6 F 69 18 177/80 95 03/11/18 13:00 71 18 98 03/11/18 12:00 18 03/11/18 11:14 98.2 F 67 18 198/93 93 L 03/11/18 08:00 18 03/11/18 07:12 98.0 F 78 18 197/92 96 03/11/18 06:45 67 20 97 03/11/18 04:00 97.6 F 64 18 160/90 92 L 03/11/18 01:00 70 22 95 03/11/18 00:00 97.9 F 70 18 160/60 96 Pain Assessment - Last Documented Pain Intensity 7 Pain Scale Used 0-10 Pain Scale Intake and Output: Intake & Output 03/09/18 03/10/18 03/11/18 03/12/18 11:59 11:59 11:59 11:59 Intake Total 2811 2850 1360 Output Total 1425 1300 Balance 2811 1425 60 Weight 110.9 kg Assessment/Plan (1) Bronchitis Current Visit: Yes Status: Acute Assessment & Plan: Chief Complaint Diagnosis c/o cough and shortness of breath Allergies Allergy/AdvReac Type Severity Reaction Status Date / Time No Known Drug Allergies Allergy Unverified 11/19/13 16:12 Vital Signs (Last 24 hours) Temp Pulse Resp BP Pulse Ox 03/11/18 19:43 98.1 F 76 26 H 174/79 95 03/11/18 19:12 74 22 95 03/11/18 16:00 98.6 F 69 18 177/80 95 03/11/18 13:00 71 18 98 03/11/18 12:00 18 03/11/18 11:14 98.2 F 67 18 198/93 93 L 03/11/18 08:00 18 03/11/18 07:12 98.0 F 78 18 197/92 96 03/11/18 06:45 67 20 97 03/11/18 04:00 97.6 F 64 18 160/90 92 L 03/11/18 01:00 70 22 95 03/11/18 00:00 97.9 F 70 18 160/60 96 Home Medications Medication Instructions Recorded Confirmed Last Taken Type Albuterol 2.5 mg/3 ml Neb 1 neb IH Q4HPRN PRN 03/09/18 03/09/18 Unknown History [Proventil 2.5 mg/3 ml Neb] Current Medications Generic Name Dose Route Start Last Admin Trade Name Freq PRN Reason Stop Dose Admin Acetaminophen 650 mg 03/10/18 13:06 03/11/18 15:56 Tylenol 325 Mg PO 04/09/18 13:05 650 mg Q6H PRN PRN Administration PAIN AND/OR FEVER Albuterol/Ipratropium 3 ml 03/09/18 15:00 03/11/18 19:11 Duoneb 0.5-3 Mg/3 Ml Neb IH 04/08/18 14:59 3 ml Q6HRT LEA Administration Allopurinol 100 mg 03/09/18 22:00 03/10/18 22:48 Zyloprim 100 Mg PO 04/08/18 21:59 100 mg HS LEA Administration Amlodipine Besylate 5 mg 03/10/18 10:00 03/11/18 10:47 Norvasc 5 Mg PO 04/09/18 09:59 5 mg DAILY LEA Administration Aspirin 81 mg 03/10/18 10:00 03/11/18 10:47 Ecotrin 81 Mg PO 04/09/18 09:59 81 mg DAILY LEA Administration Carvedilol 25 mg 03/09/18 22:00 03/11/18 10:47 Coreg 12.5 Mg PO 04/08/18 21:59 25 mg BID LEA Administration Hydrochlorothiazide 12.5 mg 03/10/18 10:00 03/11/18 10:46 Hydrodiuril 25 Mg PO 04/09/18 09:59 12.5 mg DAILY LEA Administration Ceftriaxone Sodium/Dextrose 1 g in 50 mls @ 100 mls/hr 03/09/18 15:00 10:48 Rocephin 1 Gm-D5w 50 Ml Bag IV 04/08/18 14:59 100 mls/hr Q24H10 LEA Administration Azithromycin 500 mg in 250 mls @ 125 mls/hr 03/09/18 16:00 03/11/18 15:56 Zithromax 500 Mg/ 250 Ml Nacl Premix IV 04/08/18 15:59 125 mls/hr Q24H LEA Administration Lisinopril 20 mg 03/10/18 10:00 03/11/18 10:49 Zestril 20 Mg PO 04/09/18 09:59 20 mg DAILY LEA Administration Methylprednisolone Sodium Succinate 40 mg 03/12/18 10:00 Solu-Medrol 40 Mg IV 04/11/18 09:59 DAILY LEA Fluticasone/Salmeterol 2 puff 03/09/18 19:00 03/11/18 19:12 Advair Hfa 115/21 Common Canister* IH 04/08/18 18:59 2 puff BIDRT LEA Administration Sodium Chloride 10 ml 03/10/18 14:00 03/10/18 18:08 Sodium Chloride 0.9% 10 Ml Flush Syringe IV 04/09/18 13:59 10 ml Q8HT LEA Administration Sodium Chloride 10 ml 03/10/18 13:16 Sodium Chloride 0.9% 10 Ml Flush Syringe IV 04/09/18 13:15 PRN PRN IV flush Tamsulosin HCl 0.4 mg 03/10/18 10:00 03/11/18 10:47 Flomax 0.4 Mg PO 04/09/18 09:59 0.4 mg DAILY LEA Administration Discontinued Medications Generic Name Dose Route Start Last Admin Trade Name Tyeq PRN Reason Stop Dose Admin Albuterol/Ipratropium Confirm 03/09/18 15:19 Duoneb 0.5-3 Mg/3 Ml Neb Administered 03/09/18 15:20 Dose 3 ml IH .STK-MED ONE Sodium Chloride 1,000 mls @ 40 mls/hr 03/09/18 15:00 03/09/18 16:04 Sodium Chloride 0.9% 1000 Ml IV 04/08/18 14:59 40 mls/hr .Q24H LEA Administration Methylprednisolone Sodium Succinate 80 mg 03/09/18 15:00 03/11/18 06:22 Solu-Medrol 125 Mg IV 04/08/18 14:59 80 mg Q8HT LEA Administration Intake & Output (Last 24 hours) 03/09/18 03/10/18 03/11/18 03/12/18 11:59 11:59 11:59 11:59 Intake Total 2811 2850 1360 Output Total 1425 1300 Balance 2811 1425 60 Weight 110.9 kg Orders (Last 24 hours) Category Date Time Status Methylprednisolone Sod Suc 40M [solu-MEDROL 40 MG] Med 03/12/18 10:00 Active 40 mg IV DAILY Code(s): J40 - BRONCHITIS, NOT SPECIFIED ACUTE OR CHRONIC (2) HTN (hypertension) Current Visit: Yes Status: Chronic Qualifiers: Hypertension type: essential hypertension Qualified Code(s): I10 - Essential (primary) hypertension Code(s): I10 - ESSENTIAL (PRIMARY) HYPERTENSION
[2018-03-11] MEDS: ZYLOPRIM 100 MG PO SCH (22:04)
[2018-03-12] MEDS: DUONEB 0.5-3 MG/3 ml Neb IH SCH ×3 (00:36→13:59)
[2018-03-12] MEDS: Advair Hfa 115/21 Common canister IH SCH (06:45)
[2018-03-12] MEDS: COREG 12.5 MG PO SCH (08:02)
[2018-03-12] MEDS: NORVASC 5 MG PO SCH (08:03)
[2018-03-12] MEDS: hydroDIURIL 25 MG PO SCH (08:03)
[2018-03-12] MEDS: Flomax 0.4 MG PO SCH (08:03)
[2018-03-12] MEDS: Zestril 20 MG PO SCH (08:03)
[2018-03-12] MEDS: ECOTRIN 81 MG PO SCH (08:04)
[2018-03-12] MEDS: TYLENOL 325 MG PO PRN (08:06)
--- NOTE | 2018-03-12 09:28 | XRAY ---
Indication: Short of breath. COPD. Comparison: March 09, 2018. PA/lateral chest remains clear again with COPD and calcified granulomas. Heart is not enlarged. No new/acute findings.
[2018-03-12] MEDS: ROCEPHIN 1 Gm-D5w 50 ml Bag** 1 G/50 ML IVPB IV SCH (09:40)
[2018-03-12] MEDS ORDERED: solu-MEDROL 40 MG IV SCH (10:00)
[2018-03-12 10:04] LABS: Hematocrit 32.5 % (42-50); Hemoglobin 10.7 gm/dl (12.5-18.0); Mean Cell Volume 78.3 fl (78-100); Mean Corpuscular Hgb Concent. 32.9 g/dl (32-36); Mean Platelet Volume 9.2 fl (6-9.5); Platelet Count 368 K/mm3 (150-450); Red Blood Count 4.15 M/mm3 (4.1-5.6); White Blood Count 23.4 K/mm3 (4.0-10.5)
[2018-03-12 10:19] LABS: Mean Corpuscular Hemoglobin 25.7 pg (26-32)
[2018-03-12 10:31] LABS: ALBUMIN 2.9 g/dL (3.5-5.0); ALKALINE PHOSPHATASE 67 U/L (38-126); AMYLASE 98 U/L (30-110); BILIRUBIN,TOTAL < 0.10 mg/dL (0.2-1.3); BLOOD UREA NITROGEN 22 mg/dL (9-20); CHLORIDE 98 mmol/L (98-107); Calcium 8.5 mg/dL (8.4-10.2); Carbon Dioxide 33 mmol/L (22-30); Glucose 135 mg/dL (74-106); LIPASE 87 U/L (23-300); SGOT/AST 23 U/L (17-59); SGPT/ALT 27 U/L (0-50); SODIUM 137 mmol/L (137-145); Total Protein 5.8 g/dL (6.3-8.2)
[2018-03-12] MEDS ORDERED: POTASSIUM CHLORIDE 20 mEq IN WATER 100ML 20 MEQ/100 ML BAG IV ONE (11:04)
[2018-03-12] MEDS ORDERED: Sodium Chloride 0.9% 500 ML 500 ML IV SCH (11:15)
--- NOTE | 2018-03-12 12:49 | PCM.NOTE ---
Date and Time: 03/12/18 1247 Subjective Assessment: c/o shortness of breath, cough, right lower quadrant chest pain - Review of Systems Constitutional: No Fever, No Chills Eyes: No Symptoms Ears, Nose, & Throat: No Symptoms Respiratory: Cough, Short Of Breath, Wheezing Cardiac: No Chest Pain, No Edema, No Syncope Abdominal/Gastrointestinal: No Abdominal Pain, No Nausea, No Vomiting, No Diarrhea Genitourinary Symptoms: No Dysuria Musculoskeletal: No Back Pain, No Neck Pain Skin: No Rash Neurological: No Dizziness, No Focal Weakness, No Sensory Changes Psychological: No Symptoms Endocrine: No Symptoms Hematologic/Lymphatic: No Symptoms Immunological/Allergic: No Symptoms Objective Exam General Appearance: no apparent distress, alert Neurologic Exam: alert, oriented x 3, cooperative, normal mood/affect, nml cerebellar function, sensation nml, No motor deficits Skin Exam: normal color, warm, dry Eye Exam: PERRL, EOMI, eyes nml inspection Ears, Nose, Throat Exam: normal ENT inspection, pharynx normal, moist mucous membranes Neck Exam: normal inspection, non-tender, supple, full range of motion Respiratory Exam: normal breath sounds, lungs clear, No respiratory distress Cardiovascular Exam: regular rate/rhythm, normal heart sounds Gastrointestinal/Abdomen Exam: soft, No tenderness, No mass Extremity Exam: normal inspection, normal range of motion Back Exam: normal inspection, normal range of motion, No CVA tenderness, No vertebral tenderness Male Genitalia Exam: deferred Rectal Exam: deferred OBJECTIVE DATA Vital Signs: Vital Signs - 24 hr Temp Pulse Resp BP Pulse Ox 03/12/18 12:00 18 03/12/18 11:46 98.1 F 58 L 18 168/84 96 03/12/18 08:00 18 03/12/18 07:11 97.9 F 62 18 204/90 95 03/12/18 06:48 65 18 94 L 03/12/18 04:00 97.7 F 63 24 182/89 96 03/12/18 00:36 82 22 95 03/12/18 00:00 22 03/11/18 23:34 97.7 F 69 22 190/88 96 03/11/18 20:00 26 H 03/11/18 19:43 98.1 F 76 26 H 174/79 95 03/11/18 19:12 74 22 95 03/11/18 16:00 98.6 F 69 18 177/80 95 03/11/18 13:00 71 18 98 Pain Assessment - Last Documented Pain Intensity 8 Pain Scale Used 0-10 Pain Scale Intake and Output: Intake & Output 03/10/18 03/11/18 03/12/18 03/13/18 11:59 11:59 11:59 11:59 Intake Total 2811 2850 3140 480 Output Total 1425 2150 Balance 2811 1425 990 480 Weight 110.9 kg Lab Results: Lab Results-Last 24 Hours 03/12/18 03/12/18 Range/Units 09:50 09:50 WBC 23.4 H (4.0-10.5) K/mm3 RBC 4.15 (4.1-5.6) M/mm3 Hgb 10.7 L (12.5-18.0) gm/dl Hct 32.5 L (42-50) % MCV 78.3 (78-100) fl MCH 25.7 L (26-32) pg MCHC 32.9 (32-36) g/dl RDW 14.0 (11.5-14.0) % Plt Count 368 (150-450) K/mm3 MPV 9.2 (6-9.5) fl Sodium 137 (137-145) mmol/L Potassium 3.0 L (3.5-5.1) mmol/L Chloride 98 (98-107) mmol/L Carbon Dioxide 33 H (22-30) mmol/L Anion Gap 9.0 (5-15) MEQ/L BUN 22 H (9-20) mg/dL Creatinine 0.90 (0.66-1.25) mg/dL Estimated GFR > 60.0 ML/MIN Glucose 135 H (74-106) mg/dL Calcium 8.5 (8.4-10.2) mg/dL Total Bilirubin < 0.10 L (0.2-1.3) mg/dL AST 23 (17-59) U/L ALT 27 (0-50) U/L Alkaline Phosphatase 67 (38-126) U/L Serum Total Protein 5.8 L (6.3-8.2) g/dL Albumin 2.9 L (3.5-5.0) g/dL Amylase 98 (30-110) U/L Lipase 87 (23-300) U/L Radiology Exams: Radiology Procedures Category Date Time Status CHEST 2 VIEWS (PA AND LAT) Urgent Exams 03/12/18 09:06 Completed Multi-Disciplinary Progress Notes: Multi-Disciplinary Progress Notes 03/12/18 09:45 (created 03/12/18 12:29) Case Management Note by Consuelo Amaro PT HAS BEEN UP WALKING THE HALLS. DOES CONTINUE TO C/O SOB, MAKAYLA WITH EXERTION. REVIEWED DISCHARGE PLAN, INDEPENDENT WITH ALL ADL'S. DECLINED NEEDS FOR DISCHARGE. PLANNING TO RETURN HOME TO PRE EPISODIC LEVEL OF [facility]. Initialized on 03/12/18 12:29 - END OF NOTE Assessment/Plan (1) Bronchitis Current Visit: Yes Status: Acute Assessment & Plan: improving Code(s): J40 - BRONCHITIS, NOT SPECIFIED ACUTE OR CHRONIC (2) HTN (hypertension) Current Visit: Yes Status: Chronic Qualifiers: Hypertension type: essential hypertension Qualified Code(s): I10 - Essential (primary) hypertension Code(s): I10 - ESSENTIAL (PRIMARY) HYPERTENSION
[2018-03-12] MEDS ORDERED: Spiriva 18 Mcg/Cap Inhaler IH ONE (13:44)
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
[2018-03-12] MEDS: Zithromax 500 MG/ 250 ML NaCl Premix 500 MG/250 ML IVPB IV SCH (15:38)
[2018-03-12 16:33] VITALS: BP 170/80; PULSE 59; O2SAT 96
== END 2018-03-12 18:00 | disposition home or self-care (01) ==
LOC: MED SURG 14:38
PROVIDERS: ADMIT General Practice; ATTEND General Practice
DX: J20.9 Acute bronchitis, unspecified (principal); I10 Essential (primary) hypertension; J44.9 Chronic obstructive pulmonary disease, unspecified; J45.909 Unspecified asthma, uncomplicated; E87.6 Hypokalemia; M10.9 Gout, unspecified; D72.829 Elevated white blood cell count, unspecified; T38.0X5A Adverse effect of glucocorticoids and synthetic analogues, initial encounter; Z79.899 Other long term (current) drug therapy; Z87.891 Personal history of nicotine dependence
CPT/HCPCS: 36415; 71046; 80053; 82150; 83690; 83880; 84132; 84484; 85027; 93005; 94150; 94640; 94760; G0378; J0456; J0696; J2920; J2930; J3480; A9270-GY

== ENCOUNTER 2018-12-10 11:00 | Inpatient (IN) | payer MEDICARE, OTHER ==
[2018-12-10 12:20] LABS: BASOPHIL % 0.2 % (0.0-0.4); Basophil (Absolute #) 0.02 (0-0.4); Eosinophil % 1.7 % (0.00-5.0); Eosinophil (Absolute #) 0.19 (0-0.5); Granulocyte Absolute (ANC) 8.47 (1.4-6.9); Granulocytes % 75.5 % (36.0-66.0); Hematocrit 39.4 % (42-50); Hemoglobin 12.5 gm/dl (12.5-18.0); Lymphocyte (Absolute #) 1.06 (1.0-4.6); Lymphocytes % 9.4 % (24.0-44.0); Mean Cell Volume 79.8 fl (78-100); Mean Corpuscular Hemoglobin 25.3 pg (26-32); Mean Corpuscular Hgb Concent. 31.7 g/dl (32-36); Mean Platelet Volume 9.5 fl (6-9.5); Monocyte (Absolute #) 1.48 (0.0-1.3); Monocytes % 13.2 % (0.0-12.0); Platelet Count 284 K/mm3 (150-450); Red Blood Count 4.94 M/mm3 (4.1-5.6); Red Cell Distribution Width 14.9 % (11.5-14.0); White Blood Count 11.2 K/mm3 (4.0-10.5)
--- NOTE | 2018-12-10 12:31 | XRAY ---
Indication: Wheezing and cough. Pneumonia. Comparison: March 12, 2018. PA/lateral chest remains hyperinflated again with a few incidental calcified granulomas. No focal infiltrate, consolidation, or large effusion. Heart is not enlarged. Bony thorax intact again with mild degenerative changes. Impression: Stable nonacute hyperinflated chest with chronic features.
[2018-12-10 12:35] LABS: ANION GAP 10.9 MEQ/L (5-15); BLOOD UREA NITROGEN 22 mg/dL (9-20); CHLORIDE 100 mmol/L (98-107); Calcium 8.9 mg/dL (8.4-10.2); Carbon Dioxide 32 mmol/L (22-30); Glucose 104 mg/dL (74-106); Potassium 3.3 mmol/L (3.5-5.1); SODIUM 139 mmol/L (137-145)
[2018-12-10] MEDS: ROCEPHIN 1 Gm-D5w 50 ml Bag** 1 G/50 ML IVPB IV SCH (12:58)
[2018-12-10] MEDS: Zithromax 500 MG/ 250 ML NaCl Premix 500 MG/250 ML IVPB IV SCH (13:24)
[2018-12-10] MEDS: DUONEB 0.5-3 MG/3 ml Neb IH SCH ×2 (13:38→19:16)
[2018-12-10] MEDS: Indocin 25 MG PO SCH ×2 (14:56→21:25)
[2018-12-10] MEDS: Robitussin AC Syrup Unit Dose Cup PO PRN (15:43)
[2018-12-10] MEDS: ENOXAPARIN SODIUM SQ SCH (17:07)
[2018-12-10] MEDS: TYLENOL 325 MG PO PRN (17:08)
[2018-12-10] MEDS ORDERED: COREG 12.5 MG ONE (17:25)
[2018-12-10] MEDS: Catapres 0.1 MG PO PRN (17:26)
[2018-12-10] MEDS: COREG 12.5 MG PO SCH (17:26)
[2018-12-10] MEDS: Advair Hfa 115/21 Common canister IH SCH (19:17)
[2018-12-10] MEDS: ZYLOPRIM 100 MG PO SCH (21:25)
[2018-12-10] MEDS: Klor Con 10 MEQ PO SCH (21:25)
[2018-12-10] MEDS ORDERED: NON-FORMULARY ITEM (Carvedilol [Coreg] 25 MG) PO SCH (22:00)
[2018-12-11] MEDS: DUONEB 0.5-3 MG/3 ml Neb IH SCH ×4 (00:48→20:00)
[2018-12-11] MEDS: Advair Hfa 115/21 Common canister IH SCH ×2 (07:18→20:00)
[2018-12-11] MEDS: TYLENOL 325 MG PO PRN (07:39)
[2018-12-11] MEDS: Robitussin AC Syrup Unit Dose Cup PO PRN (07:39)
[2018-12-11] MEDS: Catapres 0.1 MG PO PRN ×2 (07:39→17:04)
[2018-12-11 08:49] LABS: Hematocrit 37.3 % (42-50); Hemoglobin 11.9 gm/dl (12.5-18.0); Mean Cell Volume 80.4 fl (78-100); Mean Corpuscular Hemoglobin 25.6 pg (26-32); Mean Corpuscular Hgb Concent. 31.9 g/dl (32-36); Mean Platelet Volume 9.3 fl (6-9.5); Platelet Count 229 K/mm3 (150-450); Red Blood Count 4.64 M/mm3 (4.1-5.6); Red Cell Distribution Width 14.5 % (11.5-14.0); White Blood Count 7.6 K/mm3 (4.0-10.5)
[2018-12-11] MEDS: ROCEPHIN 1 Gm-D5w 50 ml Bag** 1 G/50 ML IVPB IV SCH (09:02)
--- NOTE | 2018-12-11 09:05 | PCM.HP.ADD ---
Addendum to History & Physical - History & Physical Addendum Addendum to History & Physical: This certifies that the History & Physical in the electronic chart reflects the current health status of the patient. If there are changes in the H&P these changes/exceptions are listed as follows.
--- NOTE | 2018-12-11 09:07 | PCM.NOTE ---
Date and Time: 12/11/18904 Subjective Assessment: c/o wheezing - Review of Systems Constitutional: No Fever, No Chills Eyes: No Symptoms Ears, Nose, & Throat: No Symptoms Respiratory: Cough, Orthopnea, Short Of Breath, Wheezing Cardiac: No Chest Pain, No Edema, No Syncope Abdominal/Gastrointestinal: No Abdominal Pain, No Nausea, No Vomiting, No Diarrhea Genitourinary Symptoms: No Dysuria Musculoskeletal: No Back Pain, No Neck Pain Skin: No Rash Neurological: No Dizziness, No Focal Weakness, No Sensory Changes Psychological: No Symptoms Endocrine: No Symptoms Hematologic/Lymphatic: No Symptoms Immunological/Allergic: No Symptoms Objective Exam General Appearance: no apparent distress, alert Neurologic Exam: alert, oriented x 3, cooperative, normal mood/affect, nml cerebellar function, sensation nml, No motor deficits Skin Exam: normal color, warm, dry Eye Exam: PERRL, EOMI, eyes nml inspection Ears, Nose, Throat Exam: normal ENT inspection, pharynx normal, moist mucous membranes Neck Exam: normal inspection, non-tender, supple, full range of motion Respiratory Exam: diminished breath sounds, crackles/rales, rhonchi, wheezing, No respiratory distress Cardiovascular Exam: regular rate/rhythm, normal heart sounds Gastrointestinal/Abdomen Exam: soft, No tenderness, No mass Extremity Exam: normal inspection, normal range of motion Back Exam: normal inspection, normal range of motion, No CVA tenderness, No vertebral tenderness Male Genitalia Exam: deferred Rectal Exam: deferred OBJECTIVE DATA Vital Signs: Vital Signs - 24 hr Temp Pulse Resp BP Pulse Ox 12/11/18 07:30 98.4 F 58 L 18 191/90 95 12/11/18 04:00 97.7 F 59 L 21 160/69 99 12/11/18 00:48 54 L 14 95 12/11/18 00:00 96.8 F 60 18 176/93 96 12/10/18 20:00 16 12/10/18 19:53 97.6 F 64 12 140/76 96 12/10/18 19:16 62 12 94 L 12/10/18 16:54 20 12/10/18 16:00 98.0 F 62 18 196/88 95 12/10/18 13:44 67 24 97 12/10/18 11:35 97.5 F 60 20 163/79 96 Pain Assessment - Last Documented Pain Intensity 4 Pain Scale Used 0-10 Pain Scale Intake and Output: Intake & Output 12/08/18 12/09/18 12/10/18 12/11/18 11:59 11:59 11:59 11:59 Intake Total 1760 Balance 1760 Weight 114.3 kg Lab Results: Lab Results-Last 24 Hours 12/10/18 12/10/18 12/11/18 Range/Units 12:00 12:00 08:44 WBC 11.2 H 7.6 (4.0-10.5) K/mm3 RBC 4.94 4.64 (4.1-5.6) M/mm3 Hgb 12.5 11.9 L (12.5-18.0) gm/dl Hct 39.4 L 37.3 L (42-50) % MCV 79.8 80.4 (78-100) fl MCH 25.3 L 25.6 L (26-32) pg MCHC 31.7 L 31.9 L (32-36) g/dl RDW 14.9 H 14.5 H (11.5-14.0) % Plt Count 284 229 (150-450) K/mm3 MPV 9.5 9.3 (6-9.5) fl Gran % 75.5 H (36.0-66.0) % Eos # (Auto) 0.19 (0-0.5) Absolute Lymphs (auto) 1.06 (1.0-4.6) Absolute Monos (auto) 1.48 H (0.0-1.3) Lymphocytes % 9.4 L (24.0-44.0) % Monocytes % 13.2 H (0.0-12.0) % Eosinophils % 1.7 (0.00-5.0) % Basophils % 0.2 (0.0-0.4) % Absolute Granulocytes 8.47 H (1.4-6.9) Basophils # 0.02 (0-0.4) Sodium 139 (137-145) mmol/L Potassium 3.3 L (3.5-5.1) mmol/L Chloride 100 (98-107) mmol/L Carbon Dioxide 32 H (22-30) mmol/L Anion Gap 10.9 (5-15) MEQ/L BUN 22 H (9-20) mg/dL Creatinine 1.20 (0.66-1.25) mg/dL Estimated GFR > 60.0 ML/MIN Glucose 104 (74-106) mg/dL Calcium 8.9 (8.4-10.2) mg/dL Radiology Exams: Radiology Procedures Category Date Time Status CHEST 2 VIEWS (PA AND LAT) Stat Exams 12/10/18 11:47 Completed Assessment/Plan (1) COPD exacerbation Current Visit: Yes Status: Acute Assessment & Plan: Last Vital Signs Temp 98.4 F 12/11/18 07:30 Pulse 58 L 12/11/18 07:30 Resp 18 12/11/18 07:30 BP 191/90 12/11/18 07:30 Pulse Ox 95 12/11/18 07:30 Allergies No Known Drug Allergies Allergy (Verified 12/10/18 12:25) Active Medications Acetaminophen (Tylenol 325 Mg) 650 mg PO Q4H PRN PRN PRN Reason: PAIN AND/OR FEVER Stop: 01/09/19 16:56 Last Admin: 12/11/18 07:39 Dose: 650 mg Albuterol/Ipratropium (Duoneb 0.5-3 Mg/3 Ml Neb) 3 ml IH Q6HRT LEA Stop: 01/09/19 12:59 Last Admin: 12/11/18 07:18 Dose: 3 ml Allopurinol (Zyloprim 100 Mg) 100 mg PO HS LEA Stop: 01/09/19 21:59 Last Admin: 12/10/18 21:25 Dose: 100 mg Amlodipine Besylate (Norvasc 5 Mg) 5 mg PO DAILY LEA Stop: 01/10/19 09:59 Aspirin (Ecotrin 81 Mg) 81 mg PO DAILY LEA Stop: 01/10/19 09:59 Carvedilol (Coreg 12.5 Mg) 25 mg PO BID LEA Stop: 01/09/19 21:59 Last Admin: 12/10/18 17:26 Dose: 25 mg Clonidine (Catapres 0.1 Mg) 0.1 mg PO Q6HPRN PRN PRN Reason: HYPERTENSION Stop: 01/09/19 17:09 Last Admin: 12/11/18 07:39 Dose: 0.1 mg Enoxaparin Sodium (Enoxaparin Sodium) 40 mg SQ DAILY LEA Stop: 01/09/19 16:59 Last Admin: 12/10/18 17:07 Dose: 40 mg Guaifenesin/Codeine Phosphate (Robitussin Ac Syrup Unit Dose Cup) 5 ml PO Q6H PRN PRN PRN Reason: COUGH Stop: 01/09/19 15:23 Last Admin: 12/11/18 07:39 Dose: 5 ml Hydrochlorothiazide (Hydrodiuril 25 Mg) 25 mg PO DAILY [facility] Stop: 01/10/19 09:59 Ceftriaxone Sodium/Dextrose (Rocephin 1 Gm-D5w 50 Ml Bag) 1 g in 50 mls @ 100 mls/hr IV Q24H10 [facility] Stop: 01/09/19 11:59 Last Admin: 12/11/18 09:02 Dose: 100 mls/hr Azithromycin (Zithromax 500 Mg/ 250 Ml Nacl Premix) 500 mg in 250 mls @ 250 mls /hr IV DAILY [facility] Stop: 01/09/19 12:59 Last Admin: 12/10/18 13:24 Dose: 250 mls/hr Indomethacin (Indocin 25 Mg) 25 mg PO TID [facility] Stop: 01/09/19 14:59 Last Admin: 12/10/18 21:25 Dose: 25 mg Influenza Virus Vaccine (Fluzone High-Dose Syr) 180 mcg IM .ONCE ONE Stop: 12/11/18 10:01 Lisinopril (Zestril 20 Mg) 40 mg PO DAILY [facility] Stop: 01/10/19 09:59 Potassium Chloride (Klor Con 10 Meq) 10 meq PO BID [facility] Stop: 01/09/19 21:59 Last Admin: 12/10/18 21:25 Dose: 10 meq Fluticasone/Salmeterol (Advair Hfa 115/21 Common Canister*) 2 puff IH BIDRT [facility] Stop: 01/09/19 18:59 Last Admin: 12/11/18 07:18 Dose: 2 puff Intake & Output 12/10/18 12/11/18 11:59 11:59 Intake Total 1760 Balance 1760 Weight 114.3 kg Orders 12/10/18 11:46 Up Ad Amber TOLERATED Miscellaneous Nursing Order ROUTINE 12/10/18 11:47 Admit as Inpatient ROUTINE IV Insertion ROUTINE Implement Pneumonia Pathway ROUTINE 12/10/18 12:00 Ceftriaxone 1 GM/50 ML PREMIX* [ROCEPHIN 1 Gm-D5w 50 ml Bag] 1 g in 50 ml IV Q24H10 12/10/18 12:09 BLOOD CULTURE Stat 12/10/18 13:00 Albuterol/Ipratropium 3ml Neb* [DUONEB 0.5-3 MG/3 ml Neb] 3 ml IH Q6HRT Azithromycin 500 mg/250 ml [Zithromax 500 MG/ 250 ML NaCl Premix] 500 mg in 250 ml IV DAILY 12/10/18 13:17 Respiratory Therapy Assessment DAILY 12/10/18 13:18 Peak Expiratory Flow Rate ONCE 12/10/18 13:22 Pulse Oximetry .spot check 12/10/18 15:00 Indomethacin 25 mg [Indocin 25 MG] 25 mg PO TID 12/10/18 15:24 Guaifenesin/Codeine 5 ml [Robitussin AC Syrup Unit Dose Cup] 5 ml PO Q6H PRN PRN 12/10/18 16:57 Acetaminophen 325 mg [Tylenol 325 mg] 650 mg PO Q4H PRN PRN 12/10/18 17:00 Enoxaparin Sodium [Enoxaparin Sodium] 40 mg SQ DAILY 12/10/18 17:10 Clonidine HCl 0.1 mg [Catapres 0.1 MG] 0.1 mg PO Q6HPRN PRN 12/10/18 18:00 Telemetry Q12H 12/10/18 19:00 Fluticasone/Salmeterol 115/21 [Advair Hfa 115/21 Common canister*] 2 puff IH BIDRT 12/10/18 22:00 Allopurinol 100 mg [Zyloprim 100 mg] 100 mg PO HS Carvedilol 12.5 mg [Coreg 12.5 mg] 25 mg PO BID Potassium Chloride 10 Meq Tab* [Klor Con 10 MEQ] 10 meq PO BID 12/10/18 Dinner Regular Diet 12/11/18 08:44 BMP Urgent 12/11/18 10:00 Amlodipine Besylate 5 mg [Norvasc 5 mg] 5 mg PO DAILY Aspirin EC 81 mg [Ecotrin 81 mg] 81 mg PO DAILY Flu Vacc [id number](65Yr Up)/Pf [Fluzone High-Dose Syr] 180 mcg IM .ONCE ONE Hydrochlorothiazide 25 mg [hydroDIURIL 25 MG] 25 mg PO DAILY Lisinopril 20 mg [Zestril 20 MG] 40 mg PO DAILY Lab Tests 12/10/18 12/10/18 12/11/18 12:00 12:00 08:44 WBC 11.2 H 7.6 RBC 4.94 4.64 Hgb 12.5 11.9 L Hct 39.4 L 37.3 L MCV 79.8 80.4 MCH 25.3 L 25.6 L MCHC 31.7 L 31.9 L RDW 14.9 H 14.5 H Plt Count 284 229 MPV 9.5 9.3 Gran % 75.5 H Eos # (Auto) 0.19 Absolute Lymphs (auto) 1.06 Absolute Monos (auto) 1.48 H Lymphocytes % 9.4 L Monocytes % 13.2 H Eosinophils % 1.7 Basophils % 0.2 Absolute Granulocytes 8.47 H Basophils # 0.02 Sodium 139 Potassium 3.3 L Chloride 100 Carbon Dioxide 32 H Anion Gap 10.9 BUN 22 H Creatinine 1.20 Estimated GFR > 60.0 Glucose 104 Calcium 8.9 Code(s): J44.1 - CHRONIC OBSTRUCTIVE PULMONARY DISEASE W (ACUTE) EXACERBATION (2) Bronchitis Current Visit: Yes Status: Acute Code(s): J40 - BRONCHITIS, NOT SPECIFIED ACUTE OR CHRONIC (3) Failure of outpatient treatment Current Visit: Yes Status: Acute Code(s): Z78.9 - OTHER SPECIFIED HEALTH STATUS (4) Pneumonia Current Visit: Yes Status: Acute Code(s): J18.9 - PNEUMONIA, UNSPECIFIED ORGANISM (5) HTN (hypertension) Current Visit: Yes Status: Chronic Qualifiers: Code(s): I10 - ESSENTIAL (PRIMARY) HYPERTENSION
[2018-12-11] MEDS: Zestril 20 MG PO SCH (09:11)
[2018-12-11] MEDS: COREG 12.5 MG PO SCH ×2 (09:12→20:45)
[2018-12-11] MEDS: ECOTRIN 81 MG PO SCH (09:12)
[2018-12-11] MEDS: Klor Con 10 MEQ PO SCH ×2 (09:12→20:46)
[2018-12-11] MEDS: NORVASC 5 MG PO SCH (09:13)
[2018-12-11] MEDS: ENOXAPARIN SODIUM SQ SCH (09:13)
[2018-12-11] MEDS: hydroDIURIL 25 MG PO SCH (09:13)
[2018-12-11 09:14] LABS: ANION GAP 11.5 MEQ/L (5-15); BLOOD UREA NITROGEN 24 mg/dL (9-20); CHLORIDE 98 mmol/L (98-107); Calcium 8.5 mg/dL (8.4-10.2); Carbon Dioxide 31 mmol/L (22-30); Creatinine 1 1.07 mg/dL (0.66-1.25); Glucose 181 mg/dL (74-106); Potassium 3.3 mmol/L (3.5-5.1); SODIUM 137 mmol/L (137-145)
[2018-12-11] MEDS: Indocin 25 MG PO SCH ×3 (09:14→20:46)
[2018-12-11] MEDS: Zithromax 500 MG/ 250 ML NaCl Premix 500 MG/250 ML IVPB IV SCH (09:43)
[2018-12-11] MEDS ORDERED: LISINOPRIL PO SCH (10:00)
[2018-12-11] MEDS ORDERED: NON-FORMULARY ITEM (Fluticasone/Vilanterol [Breo Ellipta 100-25 Mcg Inh] 1 EACH) IH SCH (10:00)
[2018-12-11] MEDS ORDERED: HYDROCHLOROTHIAZIDE PO SCH (10:00)
[2018-12-11] MEDS ORDERED: [UNRECOGNIZED DRUG - OTHER] PO SCH (10:00)
[2018-12-11] MEDS: solu-MEDROL 40 MG IV SCH ×2 (10:23→20:46)
[2018-12-11] MEDS: ZYLOPRIM 100 MG PO SCH (20:46)
[2018-12-12] MEDS: Robitussin AC Syrup Unit Dose Cup PO PRN ×2 (00:13→23:59)
[2018-12-12] MEDS: Catapres 0.1 MG PO PRN ×3 (00:13→13:47)
[2018-12-12] MEDS: DUONEB 0.5-3 MG/3 ml Neb IH SCH ×4 (00:47→17:08)
[2018-12-12] MEDS: Advair Hfa 115/21 Common canister IH SCH ×2 (06:54→17:08)
[2018-12-12] MEDS: Zestril 20 MG PO SCH (07:32)
[2018-12-12] MEDS: hydroDIURIL 25 MG PO SCH (07:32)
[2018-12-12] MEDS: COREG 12.5 MG PO SCH ×2 (07:32→19:58)
[2018-12-12] MEDS: Klor Con 10 MEQ PO SCH ×2 (09:23→22:04)
[2018-12-12] MEDS: solu-MEDROL 40 MG IV SCH ×2 (09:23→22:04)
[2018-12-12] MEDS: ENOXAPARIN SODIUM SQ SCH (09:23)
[2018-12-12] MEDS: Zithromax 500 MG/ 250 ML NaCl Premix 500 MG/250 ML IVPB IV SCH (09:23)
[2018-12-12] MEDS: ECOTRIN 81 MG PO SCH (09:23)
[2018-12-12] MEDS: NORVASC 5 MG PO SCH (09:23)
[2018-12-12] MEDS: Indocin 25 MG PO SCH ×3 (09:24→22:04)
[2018-12-12] MEDS: ROCEPHIN 1 Gm-D5w 50 ml Bag** 1 G/50 ML IVPB IV SCH (10:40)
--- NOTE | 2018-12-12 10:50 | XRAY ---
Indication: Hypertension. Short of breath. Two-dimensional sonogram and color Doppler imaging of the carotid arteries of the neck performed. Comparison: None Examination of the right carotid circulation demonstrates mild heterogeneous plaquing at the level of the bulb extending into the origin and proximal internal carotid artery and lesser degree origin of the external carotid artery. PSV of the CCA is 74 cm/s. PSV of the ICA is 119 cm/s. ICA/CCA ratio is 1.6. Normal antegrade vertebral artery flow. Examination of the left carotid circulation demonstrates mild eccentric heterogeneous plaquing in the common carotid artery. Mild calcified plaquing at the level of the bulb extending into the internal and external carotid arteries. PSV of the CCA is 77 cm/s. PSV of the ICA is 113 cm/s. ICA/CCA ratio is 1.5. Normal antegrade vertebral artery flow. Impression: Scattered plaquing in both carotid circulations as detailed. Velocity measurements and ratios favor less than 50% stenosis bilaterally.
[2018-12-12] MEDS: TYLENOL 325 MG PO PRN ×2 (13:43→20:07)
--- NOTE | 2018-12-12 15:20 | PCM.NOTE ---
Date and Time: 12/12/18 0338 Subjective Assessment: blood pressure running high - Review of Systems Constitutional: No Fever, No Chills Eyes: No Symptoms Ears, Nose, & Throat: No Symptoms Respiratory: No Cough, No Short Of Breath Cardiac: No Chest Pain, No Edema, No Syncope Abdominal/Gastrointestinal: No Abdominal Pain, No Nausea, No Vomiting, No Diarrhea Genitourinary Symptoms: No Dysuria Musculoskeletal: No Back Pain, No Neck Pain Skin: No Rash Neurological: No Dizziness, No Focal Weakness, No Sensory Changes Psychological: No Symptoms Endocrine: No Symptoms Hematologic/Lymphatic: No Symptoms Immunological/Allergic: No Symptoms Objective Exam General Appearance: no apparent distress, alert Neurologic Exam: alert, oriented x 3, cooperative, normal mood/affect, nml cerebellar function, sensation nml, No motor deficits Skin Exam: normal color, warm, dry Eye Exam: PERRL, EOMI, eyes nml inspection Ears, Nose, Throat Exam: normal ENT inspection, pharynx normal, moist mucous membranes Neck Exam: normal inspection, non-tender, supple, full range of motion Respiratory Exam: normal breath sounds, lungs clear, No respiratory distress Cardiovascular Exam: regular rate/rhythm, normal heart sounds Gastrointestinal/Abdomen Exam: soft, No tenderness, No mass Extremity Exam: normal inspection, normal range of motion Back Exam: normal inspection, normal range of motion, No CVA tenderness, No vertebral tenderness Male Genitalia Exam: deferred Rectal Exam: deferred OBJECTIVE DATA Vital Signs: Vital Signs - 24 hr Temp Pulse Resp BP Pulse Ox 12/12/18 12:16 98 F 90 20 158/88 96 12/12/18 12:12 61 18 96 12/12/18 12:00 20 12/12/18 08:00 20 12/12/18 07:22 98 F 82 20 200/98 96 12/12/18 06:57 67 18 93 L 12/12/18 04:00 97.3 F 64 20 218/98 94 L 12/12/18 00:47 81 20 93 L 12/12/18 00:05 98.4 F 87 20 194/90 96 12/11/18 20:01 85 18 94 L 12/11/18 20:00 98.5 F 83 18 191/97 94 L 12/11/18 16:00 98.1 F 65 18 184/87 93 L Pain Assessment - Last Documented Pain Intensity 5 Pain Scale Used 0-10 Pain Scale Intake and Output: Intake & Output 12/10/18 12/11/18 12/12/18 12/13/18 11:59 11:59 11:59 11:59 Intake Total 1760 2560 480 Output Total 800 Balance 1760 2560 -320 Weight 114.3 kg Lab Results: Lab Results-Last 24 Hours 12/12/18 Range/Units 09:16 Troponin I < 0.012 (0.000-0.034) ng/mL Radiology Exams: Radiology Procedures Category Date Time Status CAROTID BILATERAL [US] Routine Exams 12/12/18 10:44 Completed ECHO W/2D AND DOPPLER [US] Routine Exams 12/12/18 11:26 Taken Assessment/Plan (1) Malignant hypertension Current Visit: Yes Status: Acute Assessment & Plan: cardiology consult, Echocardiogram, Code(s): I10 - ESSENTIAL (PRIMARY) HYPERTENSION (2) COPD exacerbation Current Visit: Yes Status: Acute Code(s): J44.1 - CHRONIC OBSTRUCTIVE PULMONARY DISEASE W (ACUTE) EXACERBATION (3) Bronchitis Current Visit: Yes Status: Acute Code(s): J40 - BRONCHITIS, NOT SPECIFIED ACUTE OR CHRONIC (4) Failure of outpatient treatment Current Visit: Yes Status: Acute Code(s): Z78.9 - OTHER SPECIFIED HEALTH STATUS (5) Pneumonia Current Visit: Yes Status: Acute Code(s): J18.9 - PNEUMONIA, UNSPECIFIED ORGANISM (6) HTN (hypertension) Current Visit: Yes Status: Chronic Qualifiers: Code(s): I10 - ESSENTIAL (PRIMARY) HYPERTENSION
[2018-12-12] MEDS: ZYLOPRIM 100 MG PO SCH (22:04)
[2018-12-12] MEDS: Catapres 0.1 MG PO SCH (22:04)
[2018-12-13] MEDS: DUONEB 0.5-3 MG/3 ml Neb IH SCH ×4 (01:04→20:50)
[2018-12-13] MEDS: Advair Hfa 115/21 Common canister IH SCH ×2 (05:30→20:50)
[2018-12-13] MEDS: Catapres 0.1 MG PO SCH ×3 (06:00→21:13)
[2018-12-13] MEDS ORDERED: Indocin 25 MG PO PRN (09:46)
[2018-12-13] MEDS: ROCEPHIN 1 Gm-D5w 50 ml Bag** 1 G/50 ML IVPB IV SCH (10:41)
[2018-12-13] MEDS: solu-MEDROL 40 MG IV SCH ×2 (10:42→21:14)
[2018-12-13] MEDS: Klor Con 10 MEQ PO SCH ×2 (10:44→21:14)
[2018-12-13] MEDS: ECOTRIN 81 MG PO SCH (10:44)
[2018-12-13] MEDS: COREG 12.5 MG PO SCH ×2 (10:44→21:13)
[2018-12-13] MEDS: NORVASC 5 MG PO SCH (10:44)
[2018-12-13] MEDS: Zestril 20 MG PO SCH (10:44)
[2018-12-13] MEDS: hydroDIURIL 25 MG PO SCH (10:44)
[2018-12-13] MEDS: ENOXAPARIN SODIUM SQ SCH (10:55)
--- NOTE | 2018-12-13 12:08 | PCM.NOTE ---
Date and Time: 12/13/18 1207 Subjective Assessment: doing better - Review of Systems Constitutional: No Fever, No Chills Eyes: No Symptoms Ears, Nose, & Throat: No Symptoms Respiratory: No Cough, No Short Of Breath Cardiac: No Chest Pain, No Edema, No Syncope Abdominal/Gastrointestinal: No Abdominal Pain, No Nausea, No Vomiting, No Diarrhea Genitourinary Symptoms: No Dysuria Musculoskeletal: No Back Pain, No Neck Pain Skin: No Rash Neurological: No Dizziness, No Focal Weakness, No Sensory Changes Psychological: No Symptoms Endocrine: No Symptoms Hematologic/Lymphatic: No Symptoms Immunological/Allergic: No Symptoms Objective Exam General Appearance: no apparent distress, alert Neurologic Exam: alert, oriented x 3, cooperative, normal mood/affect, nml cerebellar function, sensation nml, No motor deficits Skin Exam: normal color, warm, dry Eye Exam: PERRL, EOMI, eyes nml inspection Ears, Nose, Throat Exam: normal ENT inspection, pharynx normal, moist mucous membranes Neck Exam: normal inspection, non-tender, supple, full range of motion Respiratory Exam: normal breath sounds, lungs clear, No respiratory distress Cardiovascular Exam: regular rate/rhythm, normal heart sounds Gastrointestinal/Abdomen Exam: soft, No tenderness, No mass Extremity Exam: normal inspection, normal range of motion Back Exam: normal inspection, normal range of motion, No CVA tenderness, No vertebral tenderness Male Genitalia Exam: deferred Rectal Exam: deferred OBJECTIVE DATA Vital Signs: Vital Signs - 24 hr Temp Pulse Resp BP Pulse Ox 12/13/18 10:41 59 L 210/93 12/13/18 08:00 97.7 F 58 L 21 204/96 97 12/13/18 05:32 61 18 96 12/13/18 04:00 97.8 F 74 18 180/92 96 12/13/18 01:05 65 20 95 12/13/18 00:05 98.3 F 58 L 22 190/90 96 12/12/18 20:00 98.0 F 68 22 184/96 95 12/12/18 17:10 64 18 95 12/12/18 16:22 97.7 F 78 20 180/90 95 12/12/18 16:00 18 12/12/18 12:16 98 F 90 20 158/88 96 12/12/18 12:12 61 18 96 Pain Assessment - Last Documented Pain Intensity 0 Pain Scale Used 0-10 Pain Scale Intake and Output: Intake & Output 12/11/18 12/12/18 12/13/18 12/14/18 11:59 11:59 11:59 11:59 Intake Total 1760 2560 3140 Output Total 2625 Balance 1760 2560 515 Weight 114.3 kg Radiology Exams: Radiology Procedures Category Date Time Status CAROTID BILATERAL [US] Routine Exams 12/12/18 10:44 Completed ECHO W/2D AND DOPPLER [US] Routine Exams 12/12/18 11:26 Taken Multi-Disciplinary Progress Notes: Multi-Disciplinary Progress Notes 12/12/18 14:55 (created 12/12/18 16:17) Case Management Note by Consuelo Amaro ROUNDED WITH DR. BENITEZ, DISCUSSED DX AND HTN WITH PT. DISCUSSED THAT HE WOULD ORDER TELE CARDIOLOGY AND HAVE [facility]ER SEE HIM FOR RECOMMENDATIONS. ECHO PEND. REPORTS THAT PT MAY DC HOME TOMORROW IF BP IS BETTER. PT VERBALIZED UNDERSTANDING AND IS IN AGREEMENT TO ALL ABOVE. Initialized on 12/12/18 16:17 - END OF NOTE Assessment/Plan (1) Malignant hypertension Current Visit: Yes Status: Acute Assessment & Plan: improving, start clonidine patch tts1 applied Code(s): I10 - ESSENTIAL (PRIMARY) HYPERTENSION (2) COPD exacerbation Current Visit: Yes Status: Acute Code(s): J44.1 - CHRONIC OBSTRUCTIVE PULMONARY DISEASE W (ACUTE) EXACERBATION (3) Bronchitis Current Visit: Yes Status: Acute Code(s): J40 - BRONCHITIS, NOT SPECIFIED ACUTE OR CHRONIC (4) Failure of outpatient treatment Current Visit: Yes Status: Acute Code(s): Z78.9 - OTHER SPECIFIED HEALTH STATUS (5) Pneumonia Current Visit: Yes Status: Acute Code(s): J18.9 - PNEUMONIA, UNSPECIFIED ORGANISM (6) HTN (hypertension) Current Visit: Yes Status: Chronic Qualifiers: Code(s): I10 - ESSENTIAL (PRIMARY) HYPERTENSION
[2018-12-13] MEDS ORDERED: Catapres-TTS 1 PATCH TOP SCH (12:15)
[2018-12-13] MEDS: Zithromax 500 MG/ 250 ML NaCl Premix 500 MG/250 ML IVPB IV SCH (12:23)
[2018-12-13] MEDS ORDERED: NORVASC 5 MG PO ONE (14:08)
[2018-12-13] MEDS: Aldactone 25 MG PO SCH (14:57)
--- NOTE | 2018-12-13 15:14 | CONS ---
CONSULT DATE: 12/13/2018 REASON FOR CONSULT: Severe hypertension and shortness of breath. HISTORY: Keyur Guerra is a 68 year-old gentleman with a history of hypertension, chronic obstructive pulmonary disease, chronic bronchitis and coronary artery disease with remote history of coronary angioplasty approximately [address] Roldan in [place]. He presented on 12/10/2018 with progressive shortness of breath and uncontrolled hypertension. He had been treated for acute bronchitis and was started on antibiotics as well as steroids. However his symptoms did not improve. He presented and was found to have severely elevated blood pressure with systolic greater than 200. He has been on multiple anti-hypertensives as an outpatient and these have been adjusted. However, he continues to have high blood pressure. Clonidine has also just been added. He reports that he has chronic stable shortness of breath associated with chronic obstructive pulmonary disease. He has not had any chest pain, orthopnea or paroxysmal nocturnal dyspnea. He does report that he occasionally has some mild ankle swelling but this has not been severe and it typically improves with elevation. 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 He currently denies any headaches or vision changes. PAST MEDICAL HISTORY: Chronic obstructive pulmonary disease. Hypertension. Gout. Bronchitis. Remote history of coronary artery disease status post intervention of unknown vessel by Dr. Roldan approximately 20 years ago in [place]. MEDICATIONS: Current medications in the hospital reviewed. He is on Albuterol, Allopurinol, amlodipine 5 mg daily, aspirin 81 mg daily, carvedilol 25 mg b.i.d., Lovenox 40 mg subcu daily, hydrochlorothiazide 25 mg daily, lisinopril 40 mg daily, indomethacin 25 mg t.i.d., methylprednisolone 40 mg IV b.i.d., potassium chloride 10 mEq p.o. b.i.d., azithromycin/ceftriaxone IV, Clonidine 0.1 mg PRN, acetaminophen PRN. ALLERGIES: NKDA. SOCIAL HISTORY: Remote history of smoking, quit many years ago. He is and has three children. Denies any illicit drug use. FAMILY HISTORY: Father and mother both of TB. LAB DATA AND TESTS: Laboratory data reviewed. His potassium was 3.3. Troponins negative. White blood cell count 7.6, PLT count 229,000. Creatinine 1.07. EKG personally reviewed demonstrates sinus rhythm with early R-wave progression, no acute ischemic changes. Echo reportedly done however I have not seen the images to review at this time. IMPRESSION: 1) BRONCHITIS/PNEUMONIA. 2) HYPERTENSIVE URGENCY/EMERGENCY: Currently blood pressure is still elevated but improved from previously. He is on multiple agents and hypertension is refractory. He reports having a normal stress test approximately four years ago. However, he reports he has had significant weight gain in the interim and does report snoring and daytime somnolence. Considering his refractory hypertension, newly developed obstructive sleep apnea could be contributing. In addition, he is currently on steroids which could also contributing to hypertension. Cardiac enzymes are negative and EKG is unremarkable. 3) CORONARY ARTERY DISEASE WITH REMOTE HISTORY OF INTERVENTION OF UNKNOWN ARTERY: He currently appears stable and has not had any significant symptoms and cardiac enzymes are negative despite severe hypertension suggestive of no significant flow limiting lesions. RECOMMENDATIONS: At this time will increase amlodipine to 10 mg daily, add Spironolactone 25 mg daily. Will repeat BMP tomorrow and will need to follow potassium level as well as renal function. In addition, I recommend that he undergo an outpatient sleep study for potential new obstructive sleep apnea considering significant weight gain since his previous study as well as suspicious symptoms of sleep apnea. I will also follow up with him in the office at my [place] outreach office in the next two to three weeks when I am there next. Thank you Dr. Jc for allowing me to participate in the care of this patient.
--- NOTE | 2018-12-13 15:26 | ECHO ---
DATE: 12/12/2018 PROCEDURE: Complete two-dimensional echocardiogram with color Doppler and Spectral analysis. INDICATION: Severe hypertension, shortness of breath. FINDINGS: The left ventricle is normal size with moderate concentric left ventricular hypertrophy. Normal left ventricular systolic function with ejection fraction of 60 to 65%. Right ventricle is normal size with normal systolic function. Left atrium is normal size. Right atrium is normal size. Inferior vena cava is dilated with normal respiratory variation. Dilated inferior vena cava suggests elevated right atrial pressure. Trileaflet aortic valve which opens well. There is no aortic stenosis and no aortic regurgitation. Mitral valve appears normal. There is trace mitral regurgitation. Tricuspid valve leaflets are thin and pliable. There is trace tricuspid regurgitation. Unable to estimate right ventricular systolic pressure due to lack of adequate tricuspid regurgitant signal. Pulmonic valve is not well visualized. Aortic root is normal in size. There is no pericardial effusion. There is grade I diastolic dysfunction. IMPRESSION: 1) Normal left ventricular chamber size with moderate concentric left ventricular hypertrophy and ejection fraction 60-65%. 2) Grade I diastolic dysfunction. 3) Normal right ventricular systolic size and systolic function. 4) Trace mitral regurgitation. 5) Trace tricuspid regurgitation. 6) Unable to estimate right ventricular systolic pressure. 7) Dilated inferior vena cava suggests elevated right atrial pressure. 8) No pericardial effusion. 9) Overall finding consistent with hypertensive heart disease.
[2018-12-13] MEDS: TYLENOL 325 MG PO PRN (21:14)
[2018-12-13] MEDS: ZYLOPRIM 100 MG PO SCH (21:14)
[2018-12-13] MEDS: Robitussin AC Syrup Unit Dose Cup PO PRN (23:41)
[2018-12-14] MEDS: DUONEB 0.5-3 MG/3 ml Neb IH SCH ×3 (01:40→13:28)
[2018-12-14] MEDS ORDERED: DUONEB 0.5-3 MG/3 ml Neb IH ONE (05:26)
[2018-12-14] MEDS: Advair Hfa 115/21 Common canister IH SCH (05:36)
[2018-12-14] MEDS: Catapres 0.1 MG PO SCH ×2 (05:44→14:27)
[2018-12-14 06:03] LABS: ANION GAP 11.3 MEQ/L (5-15); BLOOD UREA NITROGEN 29 mg/dL (9-20); CHLORIDE 101 mmol/L (98-107); Carbon Dioxide 31 mmol/L (22-30); Creatinine 1 1.03 mg/dL (0.66-1.25); Glucose 144 mg/dL (74-106); Potassium 4.3 mmol/L (3.5-5.1); SODIUM 138 mmol/L (137-145)
[2018-12-14] MEDS: Aldactone 25 MG PO SCH (08:49)
[2018-12-14] MEDS: Zestril 20 MG PO SCH (08:49)
[2018-12-14] MEDS: hydroDIURIL 25 MG PO SCH (08:49)
[2018-12-14] MEDS: COREG 12.5 MG PO SCH (08:49)
[2018-12-14] MEDS: Klor Con 10 MEQ PO SCH (08:49)
[2018-12-14] MEDS: ECOTRIN 81 MG PO SCH (08:50)
[2018-12-14] MEDS: ENOXAPARIN SODIUM SQ SCH (08:52)
[2018-12-14] MEDS: solu-MEDROL 40 MG IV SCH (09:19)
[2018-12-14] MEDS: ROCEPHIN 1 Gm-D5w 50 ml Bag** 1 G/50 ML IVPB IV SCH (09:28)
[2018-12-14] MEDS ORDERED: NORVASC 5 MG PO SCH (10:00)
[2018-12-14] MEDS: Zithromax 500 MG/ 250 ML NaCl Premix 500 MG/250 ML IVPB IV SCH (11:34)
[2018-12-14 13:32] VITALS: O2SAT 96
--- NOTE | 2018-12-14 13:37 | PCM.DS ---
Discharge Summary Date of Admission: 12/10/18 11:20 Admitting Physician: ANISHA BENITEZ Consults: Consults on Case 12/12/18 15:40 Tele-Health Consult ROUTINE Primary Care Provider: ANISHA BENITEZ Allergies Allergies No Known Drug Allergies Allergy (Verified 12/10/18 12:25) Hospital Summary - Hospital Course Hospital Course: Chief Complaint Diagnosis Pneumonia Allergies Allergy/AdvReac Type Severity Reaction Status Date / Time No Known Drug Allergies Allergy Verified 12/10/18 12:25 Vital Signs (Last 24 hours) Temp Pulse Resp BP Pulse Ox 12/14/18 13:28 65 16 96 12/14/18 11:35 97.6 F 59 L 16 180/90 12/14/18 07:47 97.8 F 59 L 19 158/90 95 12/14/18 05:37 64 22 96 12/14/18 04:05 98.2 F 47 L 24 162/76 93 L 12/14/18 01:41 58 L 20 95 12/14/18 00:15 95 12/14/18 00:00 98.4 F 49 L 22 194/104 95 12/13/18 20:53 58 L 20 96 12/13/18 20:00 97.6 F 69 24 196/102 93 L 12/13/18 16:00 97.9 F 64 20 178/92 96 Home Medications Medication Instructions Recorded Confirmed Last Taken Type Albuterol Sulfate [Ventolin Hfa] 2 puffs IH QID 12/10/18 12/10/18 12/10/18 History Azithromycin [Zithromax Tri-Wilman] 1 tab PO UD 12/10/18 12/10/18 12/10/18 History Indomethacin 25 mg [Indocin 25 25 mg PO TIDPRN PRN 12/10/18 12/13/18 History MG] Current Medications Generic Name Dose Route Start Last Admin Trade Name Freq PRN Reason Stop Dose Admin Acetaminophen 650 mg 12/10/18 16:57 12/13/18 21:14 Tylenol 325 Mg PO 01/09/19 16:56 650 mg Q4H PRN PRN Administration PAIN AND/OR FEVER Albuterol/Ipratropium 3 ml 12/10/18 13:00 12/14/18 13:28 Duoneb 0.5-3 Mg/3 Ml Neb IH 01/09/19 12:59 3 ml Q6HRT LEA Administration Allopurinol 100 mg 12/10/18 22:00 12/13/18 21:14 Zyloprim 100 Mg PO 01/09/19 21:59 100 mg HS LEA Administration Amlodipine Besylate 10 mg 12/14/18 10:00 12/14/18 08:48 Norvasc 5 Mg PO 01/13/19 09:59 10 mg DAILY LEA Administration Aspirin 81 mg 12/11/18 10:00 12/14/18 08:50 Ecotrin 81 Mg PO 01/10/19 09:59 81 mg DAILY LEA Administration Carvedilol 25 mg 12/10/18 22:00 12/14/18 08:49 Coreg 12.5 Mg PO 01/09/19 21:59 25 mg BID LEA Administration Clonidine 0.1 mg 12/13/18 14:00 12/14/18 05:44 Catapres 0.1 Mg PO 01/12/19 13:59 0.1 mg Q8HT LEA Administration Clonidine HCl 0.1 mg 12/13/18 12:15 12/13/18 12:28 Catapres-Tts 1 Patch TOP 01/12/19 12:14 0.1 mg Q7D LEA Administration Enoxaparin Sodium 40 mg 12/10/18 17:00 12/14/18 08:52 Enoxaparin Sodium SQ 01/09/19 16:59 40 mg DAILY LEA Administration Guaifenesin/Codeine Phosphate 5 ml 12/10/18 15:24 12/13/18 23:41 Robitussin Ac Syrup Unit Dose Cup PO 01/09/19 15:23 5 ml Q6H PRN PRN Administration COUGH Hydrochlorothiazide 25 mg 12/11/18 10:00 12/14/18 08:49 Hydrodiuril 25 Mg PO 01/10/19 09:59 25 mg DAILY LEA Administration Ceftriaxone Sodium/Dextrose 1 g in 50 mls @ 100 mls/hr 12/10/18 12:00 09:28 Rocephin 1 Gm-D5w 50 Ml Bag IV 01/09/19 11:59 100 mls/hr Q24H10 LEA Administration Azithromycin 500 mg in 250 mls @ 250 mls/hr 12/10/18 13:00 12/14/18 11:34 Zithromax 500 Mg/ 250 Ml Nacl Premix IV 01/09/19 12:59 250 mls/hr DAILY LEA Administration Indomethacin 25 mg 12/13/18 09:46 Indocin 25 Mg PO 01/12/19 09:44 TIDPRN PRN Gout Pain Lisinopril 40 mg 12/11/18 10:00 12/14/18 08:49 Zestril 20 Mg PO 01/10/19 09:59 40 mg DAILY LEA Administration Methylprednisolone Sodium Succinate 40 mg 12/11/18 10:00 12/14/18 09:19 Solu-Medrol 40 Mg IV 01/10/19 09:59 40 mg BID LEA Administration Potassium Chloride 10 meq 12/10/18 22:00 12/14/18 08:49 Klor Con 10 Meq PO 01/09/19 21:59 10 meq BID LEA Administration Fluticasone/Salmeterol 2 puff 12/10/18 19:00 12/14/18 05:36 Advair Hfa 115/21 Common Canister* IH 01/09/19 18:59 2 puff BIDRT LEA Administration Spironolactone 25 mg 12/13/18 14:10 12/14/18 08:49 Aldactone 25 Mg PO 01/12/19 14:09 25 mg DAILY LEA Administration Discontinued Medications Generic Name Dose Route Start Last Admin Trade Name Freq PRN Reason Stop Dose Admin Albuterol/Ipratropium Confirm 12/14/18 05:26 Duoneb 0.5-3 Mg/3 Ml Neb Administered 12/14/18 05:27 Dose 3 ml IH .STK-MED ONE Amlodipine Besylate 5 mg 12/11/18 10:00 12/13/18 10:44 Norvasc 5 Mg PO 01/10/19 09:59 5 mg DAILY LEA Administration Amlodipine Besylate 5 mg 12/13/18 14:08 12/13/18 14:57 Norvasc 5 Mg PO 12/13/18 14:09 5 mg ONCE ONE Administration Carvedilol Confirm 12/10/18 17:25 Coreg 12.5 Mg Administered 12/10/18 17:26 Dose 25 mg .ROUTE .STK-MED ONE Clonidine 0.1 mg 12/10/18 17:10 12/12/18 13:47 Catapres 0.1 Mg PO 01/09/19 17:09 0.1 mg Q6HPRN PRN Administration HYPERTENSION Clonidine 0.1 mg 12/12/18 18:30 12/13/18 06:00 Catapres 0.1 Mg PO 01/11/19 18:29 0.1 mg Q8H LEA Administration Indomethacin 25 mg 12/10/18 15:00 12/12/18 22:04 Indocin 25 Mg PO 01/09/19 14:59 25 mg TID LEA Administration Influenza Virus Vaccine 180 mcg 12/11/18 10:00 12/11/18 10:23 Fluzone High-Dose Syr IM 12/11/18 10:01 180 mcg .ONCE ONE Administration Intake & Output (Last 24 hours) 12/12/18 12/13/18 12/14/18 12/15/18 11:59 11:59 11:59 11:59 Intake Total 2560 3140 2280 Output Total 2625 3475 Balance 2560 515 -1195 Weight 114.3 kg Laboratory Results (Last 24 hours) 12/14/18 05:10 Sodium 138 Potassium 4.3 Chloride 101 Carbon Dioxide 31 H Anion Gap 11.3 BUN 29 H Creatinine 1.03 Estimated GFR > 60.0 Glucose 144 H Calcium 9.0 Orders (Last 24 hours) Category Date Time Status BMP AM.LAB Lab 12/14/18 05:10 Completed Albuterol/Ipratropium 3ml Neb* [DUONEB 0.5-3 MG/3 ml Med 12/14/18 05:26 Discontinued Neb] 3 ml IH .STK-MED ONE Amlodipine Besylate 5 mg [Norvasc 5 mg] Med 12/14/18 10:00 Active 10 mg PO DAILY Amlodipine Besylate 5 mg [Norvasc 5 mg] Med 12/13/18 14:08 Discontinued 5 mg PO ONCE ONE Clonidine HCl 0.1 mg [Catapres 0.1 MG] Med 12/13/18 14:00 Active 0.1 mg PO Q8HT Spironolactone 25 mg [Aldactone 25 MG] Med 12/13/18 14:10 Active 25 mg PO DAILY Pulse Oximetry .overnight RT 12/13/18 21:00 Completed Sleep Study With 4 or More Par ONCE RT 12/13/18 14:47 Active Patient Care Notes (Last 24 hours) 12/14/18 12:10 Respiratory Note by Robyn House OP DIAGNOSTIC SLEEP STUDY SCHEDULED FOR December@830PM. Initialized on 12/14/18 12:10 - END OF NOTE 12/14/18 12:06 Nursing Note by JAMES HOWARD Took Patients Vitals and gave Patient morning Meds. Took Patients blood pressure manually. Checked on Patient hourly in the morning. Made sure Patient had water at bedside. Asked Patient if he needed anything. Addendum entered by JAMES HOWARD 12/14/18 12:14: Addendum entered by JAMES HOWARD 12/14/18 12:15: gave medications with instructor present. patient was cooperative and pleasant with care. [facility] ns level 1 Initialized on 12/14/18 12:06 - END OF NOTE Patient is requiring 2 liters of oxygen thru nasal cannula. - Vitals & Intake/Output Vital Signs: Vital Signs Temperature 97.6 F 12/14/18 11:35 Pulse Rate 65 12/14/18 13:28 Respiratory Rate 16 12/14/18 13:28 Blood Pressure 180/90 12/14/18 11:35 O2 Sat by Pulse Oximetry 96 12/14/18 13:28 Intake & Output: Intake & Output 12/12/18 12/13/18 12/14/18 12/15/18 11:59 11:59 11:59 11:59 Intake Total 2560 3140 2280 Output Total 2625 3475 Balance 2560 515 -1195 Weight 114.3 kg - Lab Result Diagrams: 12/11/18 08:44 12/14/18 05:10 Lab Results-Last 24 Hrs: Lab Results-Last 24 Hours 12/14/18 Range/Units 05:10 Sodium 138 (137-145) mmol/L Potassium 4.3 (3.5-5.1) mmol/L Chloride 101 (98-107) mmol/L Carbon Dioxide 31 H (22-30) mmol/L Anion Gap 11.3 (5-15) MEQ/L BUN 29 H (9-20) mg/dL Creatinine 1.03 (0.66-1.25) mg/dL Estimated GFR > 60.0 ML/MIN Glucose 144 H (74-106) mg/dL Calcium 9.0 (8.4-10.2) mg/dL Micro Results-Entire Visit: Microbiology 12/10/18 12:09 Blood Culture - Preliminary Blood NO GROWTH TO DATE 12/10/18 12:00 Blood Culture - Preliminary Blood NO GROWTH TO DATE - Procedures and Test Procedures and Tests throughout Hospitalization: Therapy Orders & Screens 12/10/18 11:46 Respiratory Therapy Assessment DAILY Comment: 12/10/18 13:17 Respiratory Therapy Assessment DAILY Comment: Diagnosis: Pneumonia 12/10/18 13:18 Peak Expiratory Flow Rate ONCE Comment: Reason For Exam: Diagnosis: Pneumonia 12/12/18 08:58 EKG STAT Comment: Diagnosis: Pneumonia 12/13/18 14:47 Sleep Study With 4 or More Par ONCE Comment: SCHEDULE AT DISCHARGE Reason For Exam: Diagnosis: Pneumonia Discharge Exam General Appearance: no apparent distress, alert Neurologic Exam: alert, oriented x 3, cooperative, normal mood/affect, nml cerebellar function, sensation nml, No motor deficits Skin Exam: normal color, warm, dry Eye Exam: PERRL, EOMI, eyes nml inspection Ears, Nose, Throat Exam: normal ENT inspection, pharynx normal, moist mucous membranes Neck Exam: normal inspection, non-tender, supple, full range of motion Respiratory Exam: normal breath sounds, lungs clear, No respiratory distress Cardiovascular Exam: regular rate/rhythm, normal heart sounds Gastrointestinal/Abdomen Exam: soft, No tenderness, No mass Extremity Exam: normal inspection, normal range of motion Back Exam: normal inspection, normal range of motion, No CVA tenderness, No vertebral tenderness Male Genitalia Exam: deferred Rectal Exam: deferred Final Diagnosis/Problem List - Final Discharge Diagnosis/Problem (1) Malignant hypertension Current Visit: Yes Status: Acute (2) COPD exacerbation Current Visit: Yes Status: Acute (3) Bronchitis Current Visit: Yes Status: Acute (4) Failure of outpatient treatment Current Visit: Yes Status: Acute (5) Pneumonia Current Visit: Yes Status: Resolved (6) HTN (hypertension) Current Visit: Yes Status: Chronic (7) Obstructive sleep apnea (adult) (pediatric) Current Visit: Yes Status: Acute Assessment & Plan: going for sleep study - Discharge Discharge Date: 12/14/18 Disposition: Home, Self-Care Condition: Stable Prescriptions: No Action Carvedilol [Coreg] 25 mg PO BID Aspirin EC 81 mg [Ecotrin 81 mg] 81 mg PO DAILY Lisinopril/Hydrochlorothiazide [Lisinopril-Hctz 20-12.5 mg Tab] 2 tablet PO DAILY Amlodipine Besylate 5 mg [Norvasc 5 mg] 5 mg PO DAILY Allopurinol 100 mg [Zyloprim 100 mg] 100 mg PO HS Fluticasone/Vilanterol [Breo Ellipta 100-25 Mcg INH] 1 each IH DAILY Potassium Chloride 10 Meq Tab* [Klor Con 10 MEQ] 10 meq PO BID #60 tab Indomethacin 25 mg [Indocin 25 MG] 25 mg PO TIDPRN PRN PRN Reason: Gout Pain Albuterol Sulfate [Ventolin Hfa] 2 puffs IH QID Azithromycin [Zithromax Tri-Wilman] 1 tab PO UD Follow up with: SILVERIO SAWANT MD [CONSULTING PHYSICIAN] - 07/02/19 11:15 am (at [facility]. they will call him for an appt sooner when gets an opening ) ANISHA BENITEZ MD [Primary Care Provider] - 12/21/18 9:15 am (at [facility] )
[2018-12-14 15:37] VITALS: BP 170/86; PULSE 62
== END 2018-12-14 17:05 | disposition home or self-care (01) | DRG 304 ==
LOC: OBSVTOIN 11:20 → MED SURG 11:20
PROVIDERS: ADMIT General Practice; ATTEND General Practice
DX: I10 Essential (primary) hypertension (principal); J18.9 Pneumonia, unspecified organism; J44.1 Chronic obstructive pulmonary disease with (acute) exacerbation; J20.9 Acute bronchitis, unspecified; I25.10 Atherosclerotic heart disease of native coronary artery without angina pectoris; G47.33 Obstructive sleep apnea (adult) (pediatric); Z79.899 Other long term (current) drug therapy
CPT/HCPCS: 36415; 71046; 80048; 84484; 85025; 85027; 87040; 93005; 93306; 93880; 94150; 94640; 94760; G0008; Q3014; 90662; 94762; J0456; J0696; J1650; J2920; A9270-GY

== ENCOUNTER 2021-03-09 12:12 | Observation (INO) | payer MEDICARE ==
--- NOTE | 2021-03-09 13:00 | ERPHSYRPT ---
- History of Present Illness Source: patient Patient Subjective Stated Complaint: SOB Triage Nursing Assessment: Patient brought back to ED via w/c and transferred self to bed. Patient A+O X3. Patient's skin flushed, warm and dry. Patient complains of SOB that has increased over the past two weeks. Patient has been treated with a Zpack and Levaquin over the past two weeks and is not better. Lungs noted to be clear. Patient denies pain or discomfort. Patient complains of intermittent productive cough with yellow green sputum. Patient also has been having fever as high as 101.5. Patient also complains of headaches and bodyaches. Physician History: 70 yo wm w dyspnea x2wks. Pt has had a mildly productive cough which he was treated w a Zpak and now is on Levaquin per Dr. Jc. He has had a fever/nausea but denies CP/melena/hematochezia. Pt did not get his CV19 vaccine and has not been tested for CV19. Timing/Duration: other (2 wks) Cough Quality/Degree: productive cough Possible Cause: occasional episodes Modifying Factors: Improves With: activity Associated Symptoms: denies symptoms, fever, cough Allergies/Adverse Reactions: No Known Drug Allergies Allergy (Verified 03/09/21 12:20) Home Medications: Amlodipine Besylate 5 mg [Norvasc 5 mg] 5 mg PO DAILY 03/09/21 [History] Carvedilol [Coreg] 1 tab PO BID 03/09/21 [History] Famotidine 20 mg [Pepcid 20 MG] 1 tab PO DAILY 03/09/21 [History] Fluticasone/Vilanterol [Breo Ellipta 100-25 Mcg INH] 1 puff IH DAILY 03/09/21 [History] Lisinopril/Hydrochlorothiazide [Lisinopril-Hctz 20-25 mg Tab] 1 tab PO DAILY 0 03/09/21 [History] PANTOPRAZOLE 40 mg Tablet [Protonix 40MG Tablet] 1 tab PO DAILY 03/09/21 [History] Hx Tetanus, Diphtheria Vaccination/Date Given: Yes Hx Influenza Vaccination/Date Given: No Hx Pneumococcal Vaccination/Date Given: Yes Immunizations Up to Date: Yes Travel Risk - International Travel Have you traveled outside of the country in past 3 weeks: No - Coronavirus Screening Are you exhibiting any of the following symptoms?: Yes Symptoms: Fever, Cough: New Onset, Shortness of Breath, Headaches/Body Aches/Fatigue - Vaccine Status Have you recieved a Covid-19 vaccination: No - Review of Systems Constitutional: Fever, Chills, Fatigue, Lethargy Eyes: No Symptoms Ears, Nose, & Throat: No Symptoms Respiratory: No Symptoms, Cough, Dyspnea on Exertion (ARREOLA) Cardiac: No Symptoms Abdominal/Gastrointestinal: No Symptoms, Nausea Genitourinary Symptoms: No Symptoms Musculoskeletal: No Symptoms Skin: No Symptoms Neurological: No Symptoms Psychological: No Symptoms Endocrine: No Symptoms Hematologic/Lymphatic: No Symptoms Immunological/Allergic: No Symptoms - Past Medical History Pertinent Past Medical History: Yes Neurological History: No Pertinent History ENT History: No Pertinent History Cardiac History: Hypertension Respiratory History: Asthma, Bronchitis, COPD Endocrine Medical History: No Pertinent History Musculoskeletal History: No Pertinent History GI Medical History: No Pertinent History History: No Pertinent History Psycho-Social History: No Pertinent History Male Reproductive Disorders: No Pertinent History - Past Surgical History Past Surgical History: Yes Neuro Surgical History: No Pertinent History Cardiac: No Pertinent History Respiratory: No Pertinent History Gastrointestinal: No Pertinent History Genitourinary: No Pertinent History Musculoskeletal: Joint Replacement, Orthopedic Surgery Male Surgical History: No Pertinent History Other Surgical History: LEFT HIP REPLACEMENT. LEFT KNEE REPLACEMENT. left hand surgery - Social History Smoking Status: Former smoker Exposure to second hand smoke: No Drug Use: none Patient Lives Alone: No Significant Family History: no pertinent family hx - Nursing Vital Signs Nursing Vital Signs: Initial Vital Signs Temperature 100.1 F 03/09/21 12:21 Pulse Rate 82 03/09/21 12:21 Respiratory Rate 25 H 03/09/21 12:21 Blood Pressure 116/65 03/09/21 12:21 O2 Sat by Pulse Oximetry 95 03/09/21 12:21 Pain Scale Pain Intensity 0 - Physical Exam General Appearance: no apparent distress Eye Exam: PERRL/EOMI, post op pupil defect (L) Ears, Nose, Throat Exam: normal ENT inspection, TMs normal, moist mucous membranes Neck Exam: normal inspection, non-tender, supple, full range of motion, No meningismus, No mass, No Brudzinski, No Kernig's Respiratory Exam: normal breath sounds, lungs clear, airway intact, No respiratory distress Cardiovascular Exam: regular rate/rhythm, normal heart sounds, normal peripheral pulses, No murmur Gastrointestinal/Abdomen Exam: soft, normal bowel sounds, No tenderness Back Exam: normal inspection, normal range of motion, No CVA tenderness Extremity Exam: normal inspection, normal range of motion Neurologic Exam: alert, oriented x 3, 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, 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, normal mood/affect, nml cerebellar function, nml station & gait, sensation nml Skin Exam: normal color Lymphatic Exam: adenopathy SpO2 Interpretation: normal SpO2: 95 O2 Delivery: Room Air - Course Nursing assessment & vital signs reviewed: Yes EKG Interpreted by Me: RATE (NSR/R76/Normal QT-QTc/No acute ST-T wave changes) Ordered Tests: Active Orders 24 hr Category Date Time Status EKG-ER Only STAT Care 03/09/21 12:40 Completed IV Insertion STAT Care 03/09/21 12:40 Completed Consistent Carbohydrate Diet 2000 Calorie Diet 03/10/21 Breakfast Active CHEST 1 VIEW (PORTABLE) Stat Exams 03/09/21 13:09 Completed BLOOD CULTURE Stat Lab 03/09/21 14:36 Received CBC W DIFF AM.LAB Lab 03/10/21 04:00 Ordered CBC W DIFF Stat Lab 03/09/21 12:40 Completed CMP AM.LAB Lab 03/10/21 04:00 Ordered CMP Stat Lab 03/09/21 12:40 Completed Manual Differential NC Stat Lab 03/09/21 12:40 Completed NT PRO BNP Stat Lab 03/09/21 12:40 Completed PROTIME WITH INR AM.LAB Lab 03/10/21 04:00 Ordered PROTIME WITH INR Stat Lab 03/09/21 12:40 Completed PTT AM.LAB Lab 03/10/21 04:00 Ordered PTT Stat Lab 03/09/21 12:40 Completed TROPONIN Q3H Lab 03/09/21 12:40 Completed TROPONIN Q3H Lab 03/09/21 15:45 Completed TROPONIN Q3H Lab 03/09/21 18:45 Completed TROPONIN Q3H Lab 03/09/21 21:58 Completed Medication Summary Generic Name Dose Route Start Last Admin Trade Name Freq PRN Reason Stop Dose Admin Acetaminophen 500 mg 03/09/21 20:05 Tylenol Extra Strength 500 Mg PO 04/08/21 20:04 Q4H PRN PRN pain Carvedilol 25 mg 03/09/21 22:00 03/09/21 21:57 Coreg 12.5 Mg PO 04/08/21 21:59 25 mg BID LEA Administration Dexamethasone Sodium Phosphate 6 mg 03/09/21 22:00 03/09/21 21:57 Decadron 10mg Inj. IV 04/08/21 21:59 6 mg BID LEA Administration Dexamethasone Sodium Phosphate 8 mg 03/10/21 10:00 Decadron 4 Mg Inj IV 04/09/21 09:59 Q24H10 LEA Enoxaparin Sodium 40 mg 03/10/21 10:00 Enoxaparin Sodium SQ 04/09/21 09:59 DAILY LEA Enoxaparin Sodium 60 mg 03/09/21 22:00 03/09/21 21:58 Enoxaparin Sodium SQ 04/08/21 21:59 60 mg DAILY LEA Administration Famotidine 20 mg 03/09/21 22:00 03/09/21 21:58 Pepcid 20 Mg Vial IV 04/08/21 21:59 20 mg Q12HT LEA Administration Remdesivir 100 mg/ Sodium 100 mls @ 100 mls/hr 03/10/21 16:50 Chloride IV 03/13/21 17:49 Q24H LEA Lorazepam 1 mg 03/09/21 19:00 03/09/21 21:57 Ativan 1 Mg PO 04/08/21 18:59 1 mg Q4H PRN PRN Administration CIWA SCORE Ondansetron HCl 4 mg 03/09/21 16:44 Zofran 4 Mg/2 Ml Vial IV 04/08/21 16:43 Q6H PRN PRN NAUSEA/VOMITING Fluticasone/Salmeterol 2 puff 03/10/21 07:00 03/09/21 20:15 Advair Hfa 115/21 Common Canister* IH 04/09/21 06:59 2 puff BIDRT LEA Administration Discontinued Medications Generic Name Dose Route Start Last Admin Trade Name Freq PRN Reason Stop Dose Admin Dexamethasone Sodium Phosphate 6 mg 03/09/21 16:37 03/09/21 16:47 Decadron 10mg Inj. IV 03/09/21 16:38 6 mg STAT ONE Administration Dexamethasone Sodium Phosphate Confirm 03/09/21 16:47 Decadron 10mg Inj. Administered 03/09/21 16:48 Dose 10 mg .ROUTE .STK-MED ONE Ceftriaxone Sodium/Dextrose 1 g in 50 mls @ 100 mls/hr 03/09/21 14:29 03/09/21 15:18 Rocephin 1 Gm-D5w 50 Ml Bag IV 03/09/21 14:58 Infused STAT STA Infusion Azithromycin 500 mg in 250 mls @ 250 mls/hr 03/09/21 14:30 03/09/21 16:42 Zithromax 500 Mg/ 250 Ml Nacl Premix IV 03/09/21 15:29 Infused STAT STA Infusion Ceftriaxone Sodium/Dextrose Confirm 03/09/21 14:35 Rocephin 1 Gm-D5w 50 Ml Bag Administered 03/09/21 14:36 Dose 1 g in 50 mls @ ud IV .STK-MED ONE Azithromycin Confirm 03/09/21 15:18 Zithromax 500 Mg/ 250 Ml Nacl Premix Administered 03/09/21 15:19 Dose 500 mg in 250 mls @ ud IV .STK-MED ONE Remdesivir 200 mg/ Sodium 250 mls @ 125 mls/hr 03/09/21 16:38 03/09/21 17:03 Chloride IV 03/09/21 18:37 125 mls/hr ONCE ONE Administration Lab/Rad Data: Laboratory Result Diagrams 03/09/21 12:40 03/09/21 12:40 Laboratory Results 03/09/21 03/09/21 03/09/21 Range/Units 15:45 15:08 12:40 WBC (4.0-10.5) K/mm3 RBC (4.1-5.6) M/mm3 Hgb (12.5-18.0) gm/dl Hct (42-50) % MCV (78-100) fl MCH (26-32) pg MCHC (32-36) g/dl RDW (11.5-14.0) % Plt Count (150-450) K/mm3 MPV (7.5-11.0) fl Segmented Neutrophils (36.-66.) % Lymphocytes (Manual) (24-44) % Monocytes (Manual) (0.0-12.0) % Toxic Granulation Platelet Estimate (NORMAL) RBC Morphology PT (8.83-12.87) SECONDS INR (0.8-3.0) APTT (24.1-36.1) SECONDS Sodium (137-145) mmol/L Potassium (3.5-5.1) mmol/L Chloride (98-107) mmol/L Carbon Dioxide (22-30) mmol/L Anion Gap (5-15) MEQ/L BUN (9-20) mg/dL Creatinine (0.66-1.25) mg/dL Estimated GFR ML/MIN Glucose (74-106) mg/dL Calcium (8.4-10.2) mg/dL Total Bilirubin (0.2-1.3) mg/dL AST (17-59) U/L ALT (0-50) U/L Alkaline Phosphatase (38-126) U/L Troponin I 0.023 0.024 (0.000-0.034) ng/mL NT-Pro-B Natriuret Pep (0-900) pg/mL Serum Total Protein (6.3-8.2) g/dL Albumin (3.5-5.0) g/dL Influenza Type A Ag NEGATIVE (NEGATIVE) Influenza Type B Ag NEGATIVE (NEGATIVE) RSV (PCR) NEGATIVE (Negative) SARS-CoV-2 (PCR) POSITIVE A (NEGATIVE) 03/09/21 03/09/21 03/09/21 Range/Units 12:40 12:40 12:40 WBC 13.1 H (4.0-10.5) K/mm3 RBC 4.75 (4.1-5.6) M/mm3 Hgb 11.8 L (12.5-18.0) gm/dl Hct 36.5 L (42-50) % MCV 76.8 L (78-100) fl MCH 24.8 L (26-32) pg MCHC 32.3 (32-36) g/dl RDW 15.1 H (11.5-14.0) % Plt Count 223 (150-450) K/mm3 MPV 10.8 (7.5-11.0) fl Segmented Neutrophils 91 H (36.-66.) % Lymphocytes (Manual) 5 L (24-44) % Monocytes (Manual) 4 (0.0-12.0) % Toxic Granulation 1+ Platelet Estimate NORMAL (NORMAL) RBC Morphology NORMAL PT 15.9 H (8.83-12.87) SECONDS INR 1.40 (0.8-3.0) APTT 24.6 (24.1-36.1) SECONDS Sodium 133 L (137-145) mmol/L Potassium 3.5 (3.5-5.1) mmol/L Chloride 97 L (98-107) mmol/L Carbon Dioxide 28 (22-30) mmol/L Anion Gap 11.9 (5-15) MEQ/L BUN 28 H (9-20) mg/dL Creatinine 1.67 H (0.66-1.25) mg/dL Estimated GFR 43.2 ML/MIN Glucose 132 H (74-106) mg/dL Calcium 8.4 (8.4-10.2) mg/dL Total Bilirubin 0.70 (0.2-1.3) mg/dL AST 29 (17-59) U/L ALT 21 (0-50) U/L Alkaline Phosphatase 78 (38-126) U/L Troponin I (0.000-0.034) ng/mL NT-Pro-B Natriuret Pep 1090 H (0-900) pg/mL Serum Total Protein 6.7 (6.3-8.2) g/dL Albumin 3.5 (3.5-5.0) g/dL Influenza Type A Ag (NEGATIVE) Influenza Type B Ag (NEGATIVE) RSV (PCR) (Negative) SARS-CoV-2 (PCR) (NEGATIVE) - Progress Progress Note: 03/09/21 14:[address] Jc 03/09/21 16:38 Blood cultures x2/1gm IV Rocephin/500mg IV Zithromax Covid19+ Left message w Dr. Jc Admit to CV19 unit per Dr. Brandon/Wants to start [id number] IV/Remdisivir Discussed with : Chuy Counseled pt/family regarding: lab results, diagnosis, rad results - Departure Departure Disposition: Observation Clinical Impression: Pneumonia, COVID-19 Condition: Stable Critical Care Time: No
[2021-03-09 13:06] LABS: Hematocrit 36.5 % (42-50); Hemoglobin 11.8 gm/dl (12.5-18.0); Mean Cell Volume 76.8 fl (78-100); Mean Corpuscular Hemoglobin 24.8 pg (26-32); Mean Corpuscular Hgb Concent. 32.3 g/dl (32-36); Mean Platelet Volume 10.8 fl (7.5-11.0); Platelet Count 223 K/mm3 (150-450); Red Blood Count 4.75 M/mm3 (4.1-5.6); Red Cell Distribution Width 15.1 % (11.5-14.0); White Blood Count 13.1 K/mm3 (4.0-10.5)
[2021-03-09 13:07] LABS: INR 1.4 (0.8-3.0); PROTIME 15.9 SECONDS (8.83-12.87)
[2021-03-09 13:10] LABS: PTT 24.6 SECONDS (24.1-36.1)
--- NOTE | 2021-03-09 13:18 | XRAY ---
Indication: Cough, short of breath, nausea, and vomiting. Suspect Covid 19. Comparison: December 10, 2018. Portable chest demonstrates new patchy right base airspace disease without consolidation/large effusion. Remaining heart and left lung unremarkable with stable lingula calcified granuloma. Bony thorax intact again with mild degenerative changes.
[2021-03-09 13:19] LABS: ALBUMIN 3.5 g/dL (3.5-5.0); ANION GAP 11.9 MEQ/L (5-15); BILIRUBIN,TOTAL 0.7 mg/dL (0.2-1.3); Calcium 8.4 mg/dL (8.4-10.2); Creatinine 1 1.67 mg/dL (0.66-1.25); EST GLOMERULAR FILTRATION RATE 43.2 ML/MIN; Potassium 3.5 mmol/L (3.5-5.1); Total Protein 6.7 g/dL (6.3-8.2)
[2021-03-09] MEDS ORDERED: ROCEPHIN 1 Gm-D5w 50 ml Bag** 1 G/50 ML IVPB IV STA (14:29)
[2021-03-09] MEDS ORDERED: Zithromax 500 MG/ 250 ML NaCl Premix 500 MG/250 ML IVPB IV STA (14:30)
[2021-03-09] MEDS ORDERED: ROCEPHIN 1 Gm-D5w 50 ml Bag** 1 G/50 ML IVPB IV ONE (14:35)
[2021-03-09 14:42] LABS: Lymphocytes 5 % (24-44); Monocyte 4 % (0.0-12.0); Neutrophils 91 % (36.-66.); Platelet Estimate NORMAL (NORMAL); Total Cells Counted 100; Toxic Granulation 1+
[2021-03-09] MEDS ORDERED: Zithromax 500 MG/ 250 ML NaCl Premix 500 MG/250 ML IVPB IV ONE (15:18)
[2021-03-09 15:48] LABS: INFLUENZA A NEGATIVE (NEGATIVE); INFLUENZA B NEGATIVE (NEGATIVE); RESPIRATORY SYNCTIAL VIRUS NEGATIVE (Negative)
[2021-03-09] MEDS ORDERED: DECADRON 10MG INJ. IV ONE (16:37)
[2021-03-09] MEDS ORDERED: REMDESIVIR 200 MG in Sodium Chloride 0.9% 250 ML 250 ML IV ONE (16:38)
[2021-03-09] MEDS ORDERED: Zofran 4 MG/2 ML VIAL IV PRN (16:44)
[2021-03-09] MEDS ORDERED: DECADRON 10MG INJ. ONE ×2 (16:47→21:29)
[2021-03-09] MEDS ORDERED: TYLENOL EXTRA STRENGTH 500 MG PO PRN (20:05)
[2021-03-09] MEDS: Advair Hfa 115/21 Common canister IH SCH (20:15)
[2021-03-09] MEDS: Ativan 1 MG PO PRN (21:57)
[2021-03-09] MEDS: COREG 12.5 MG PO SCH (21:57)
[2021-03-09] MEDS ORDERED: DECADRON 10MG INJ. IV SCH (22:00)
[2021-03-09] MEDS ORDERED: Pepcid 20 MG VIAL IV SCH (22:00)
[2021-03-09] MEDS ORDERED: ENOXAPARIN SODIUM SQ SCH (22:00)
[2021-03-10 06:20] LABS: Hematocrit 36.3 % (42-50); Hemoglobin 11.8 gm/dl (12.5-18.0); Mean Cell Volume 76.3 fl (78-100); Mean Corpuscular Hemoglobin 24.8 pg (26-32); Mean Corpuscular Hgb Concent. 32.5 g/dl (32-36); Mean Platelet Volume 10.6 fl (7.5-11.0); Platelet Count 212 K/mm3 (150-450); Red Blood Count 4.76 M/mm3 (4.1-5.6); White Blood Count 7.9 K/mm3 (4.0-10.5)
[2021-03-10 06:21] LABS: INR 1.34 (0.8-3.0); PROTIME 15.2 SECONDS (8.83-12.87)
[2021-03-10 06:24] LABS: PTT 26.4 SECONDS (24.1-36.1)
[2021-03-10 06:33] LABS: ALBUMIN 3.1 g/dL (3.5-5.0); ANION GAP 8.7 MEQ/L (5-15); BILIRUBIN,TOTAL 0.3 mg/dL (0.2-1.3); Calcium 8.9 mg/dL (8.4-10.2); Creatinine 1 1.39 mg/dL (0.66-1.25); EST GLOMERULAR FILTRATION RATE 53.4 ML/MIN; Potassium 3.7 mmol/L (3.5-5.1); Total Protein 6.5 g/dL (6.3-8.2)
[2021-03-10 08:09] LABS: BAND 1 % (0.0-2.0); Lymphocytes 4 % (24-44); Monocyte 2 % (0.0-12.0); Neutrophils 93 % (36.-66.); Platelet Estimate NORMAL (NORMAL); Total Cells Counted 100
[2021-03-10] MEDS: Advair Hfa 115/21 Common canister IH SCH ×2 (09:10→20:57)
[2021-03-10] MEDS: Zestril 20 MG*** 20 MG, hydroDIURIL 25 MG*** 25 MG PO SCH ×2 (09:18)
[2021-03-10] MEDS: Pepcid 20 MG PO SCH ×2 (09:18→21:59)
[2021-03-10] MEDS: COREG 12.5 MG PO SCH ×2 (09:19→21:59)
[2021-03-10] MEDS: NORVASC 5 MG PO SCH (09:19)
[2021-03-10] MEDS: Protonix 40MG Tablet PO SCH (09:19)
[2021-03-10] MEDS ORDERED: ENOXAPARIN SODIUM SQ SCH ×2 (10:00→22:00)
[2021-03-10] MEDS ORDERED: HYDRODIURIL 25 MG PO SCH ×2 (10:00)
[2021-03-10] MEDS ORDERED: ZESTRIL PO SCH ×2 (10:00)
[2021-03-10] MEDS ORDERED: TYLENOL W/ CODEINE 5 ML UD CUP PO PRN (10:17)
[2021-03-10] MEDS: PHENERGAN WITH CODEINE SYRUP PO PRN ×3 (10:34→21:58)
[2021-03-10] MEDS: Decadron 4 MG INJ IV SCH (11:19)
[2021-03-10] MEDS: Sodium Chloride 0.9% 10 ML FLUSH Syringe IV SCH ×2 (16:00→22:00)
[2021-03-10] MEDS ORDERED: REMDESIVIR 100 MG in Sodium Chloride 0.9% 100 ML BAG 100 ML IV SCH (17:00)
[2021-03-10] MEDS: Ativan 1 MG PO PRN (21:59)
[2021-03-11 05:47] LABS: Hematocrit 33.5 % (42-50); Mean Cell Volume 76.1 fl (78-100); Mean Corpuscular Hgb Concent. 32.8 g/dl (32-36); Mean Platelet Volume 10.9 fl (7.5-11.0); Platelet Count 252 K/mm3 (150-450); Red Cell Distribution Width 15.2 % (11.5-14.0); White Blood Count 21.8 K/mm3 (4.0-10.5)
[2021-03-11 06:04] LABS: ANION GAP 10.6 MEQ/L (5-15); Calcium 8.7 mg/dL (8.4-10.2); Creatinine 1 1.48 mg/dL (0.66-1.25); EST GLOMERULAR FILTRATION RATE 49.7 ML/MIN; Potassium 3.5 mmol/L (3.5-5.1)
[2021-03-11] MEDS: Sodium Chloride 0.9% 10 ML FLUSH Syringe IV SCH (06:24)
[2021-03-11] MEDS: Advair Hfa 115/21 Common canister IH SCH (07:36)
[2021-03-11] MEDS: Decadron 4 MG INJ IV SCH (08:23)
[2021-03-11] MEDS: Zestril 20 MG*** 20 MG, hydroDIURIL 25 MG*** 25 MG PO SCH ×2 (08:24)
[2021-03-11] MEDS: COREG 12.5 MG PO SCH (08:26)
[2021-03-11] MEDS: NORVASC 5 MG PO SCH (08:26)
[2021-03-11] MEDS: Protonix 40MG Tablet PO SCH (08:27)
[2021-03-11] MEDS: Pepcid 20 MG PO SCH (08:27)
[2021-03-11] MEDS ORDERED: REMDESIVIR 100 MG in Sodium Chloride 0.9% 100 ML BAG 100 ML IV SCH (12:00)
[2021-03-11 13:17] VITALS: BP 152/78; PULSE 60; O2SAT 95
--- NOTE | 2021-03-31 11:06 | SSS ---
DISCHARGE DIAGNOSIS: COVID PNEUMONIA. HOSPITAL COURSE: The patient was admitted from the emergency room with increasing shortness of breath and cough. He was COVID positive and was treated with Remdesivir, Lovenox and Decadron. He had some occasional abdominal pain. Normal bowel movements. White count was elevated at 14,000. He was not sure where he got the COVID, where he was exposed at. BNP was mildly elevated. He was treated with some Lasix for some mild heart failure. On 03/10/2021 he had a few crackles that seemed to improve, no abdominal pain. His white count was back to normal. Blood pressure which had gone up quite a bit came down. He was continued on Norvasc 5, Coreg 25, Pepcid 20, Breo, lisinopril/hydrochlorothiazide 20/25 one q.d., Prilosec 40. PHYSICAL EXAMINATION: On initial exam and follow up exam he was always alert, orientated and in no severe distress. CHEST: Few crackles right side. CVS: Heart sounds were regular rate. ABDOMEN: Soft, slightly distended. No tenderness. EXTREMITIES: Normal. No cyanosis. No edema. DISCHARGE PLANS: He was discharged home on his home medications plus Lasix 20 q.d. and Micro-K 10 q.d., prednisone 20 q.d. He is to isolate for seven days and see Dr. Jc in seven to ten days. Call if temperature went up or becomes short of breath. I note his EKG showed borderline repolarization. He was much improved on discharge.
== END 2021-03-11 13:00 | disposition home or self-care (01) ==
LOC: ED 12:12 → MED SURG 18:02
PROVIDERS: ADMIT Family Medicine; ATTEND Family Medicine
DX: U07.1 COVID-19 (principal); J12.82 Pneumonia due to coronavirus disease 2019; I50.9 Heart failure, unspecified; Z79.899 Other long term (current) drug therapy; I10 Essential (primary) hypertension; Z20.828 Contact with and (suspected) exposure to other viral communicable diseases
CPT/HCPCS: 0241U; 36000; 36415; 71045; 80048; 80053; 83880; 84484; 85025; 85027; 85379; 85610; 85730; 87040; 93005; 93268; 94640; 94762; 96365; 96374; 96375; 99285; G0378; J0456; J0696; J1100; J1650; A9270-GY

== ENCOUNTER 2021-07-28 11:03 | Observation (INO) | payer MEDICARE ==
--- NOTE | 2021-07-28 13:31 | XRAY ---
Indication: Cough and congestion. Pneumonia. Comparison: March 09, 2021. PA/lateral chest obtained. Lateral view limited by respiration artifact. No focal infiltrate, consolidation, or large effusion. Stable left base calcified granuloma. Heart not enlarged. Bony thorax intact again with mild degenerative changes. Impression: Nonacute limited chest with chronic features.
[2021-07-28 13:40] LABS: Absolute Neutrophil Ct (ANC) 7.81 (1.4-6.9); BASOPHIL % 0.2 % (0.0-0.4); Basophil (Absolute #) 0.02 (0-0.4); Eosinophil % 3.7 % (0.00-5.0); Eosinophil (Absolute #) 0.39 (0-0.5); Hematocrit 33.9 % (42-50); Hemoglobin 10.7 gm/dl (12.5-18.0); Lymphocyte (Absolute #) 1.31 (1.0-4.6); Lymphocytes % 12.4 % (24.0-44.0); Mean Cell Volume 78.5 fl (78-100); Mean Corpuscular Hemoglobin 24.8 pg (26-32); Mean Corpuscular Hgb Concent. 31.6 g/dl (32-36); Monocyte (Absolute #) 1.02 (0.0-1.3); Monocytes % 9.7 % (0.0-12.0); Platelet Count 335 K/mm3 (150-450); Red Blood Count 4.32 M/mm3 (4.1-5.6); Red Cell Distribution Width 14.6 % (11.5-14.0); White Blood Count 10.6 K/mm3 (4.0-10.5)
[2021-07-28] MEDS: Sodium Chloride 0.9% 1000 ML 1,000 ML IV SCH (13:51)
[2021-07-28] MEDS: ROCEPHIN 1 Gm-D5w 50 ml Bag** 1 G/50 ML IVPB IV SCH (13:52)
[2021-07-28 13:57] LABS: ANION GAP 14.4 MEQ/L (5-15); Creatinine 1 1.56 mg/dL (0.66-1.25); EST GLOMERULAR FILTRATION RATE 46.6 ML/MIN; Potassium 3.6 mmol/L (3.5-5.1)
[2021-07-28] MEDS ORDERED: PROVENTIL 2.5 MG/3 ML NEB IH PRN (14:01)
[2021-07-28] MEDS: PROVENTIL 2.5 MG/3 ML NEB IH SCH ×2 (14:09→18:40)
[2021-07-28] MEDS: Zithromax 500 MG/ 250 ML NaCl Premix 500 MG/250 ML IVPB IV SCH (15:00)
[2021-07-28] MEDS ORDERED: MEDICATION INTERVENTION MC SCH (15:45)
[2021-07-28] MEDS: ECOTRIN 81 MG PO SCH (18:28)
[2021-07-28] MEDS: Protonix 40MG Tablet PO SCH (18:28)
[2021-07-28] MEDS: Pepcid 20 MG PO SCH (18:28)
[2021-07-28] MEDS: NORVASC 5 MG PO SCH (18:29)
[2021-07-28] MEDS: hydroDIURIL 25 MG PO SCH (18:29)
[2021-07-28] MEDS: Zestril 20 MG PO SCH (18:29)
[2021-07-28] MEDS ORDERED: [UNRECOGNIZED DRUG - OTHER] PO SCH (19:00)
[2021-07-28] MEDS ORDERED: LISINOPRIL PO SCH (19:00)
[2021-07-28] MEDS ORDERED: HYDROCHLOROTHIAZIDE PO SCH (19:00)
[2021-07-28] MEDS ORDERED: NON-FORMULARY ITEM (Carvedilol [Carvedilol] 25 MG) PO SCH (22:00)
[2021-07-28] MEDS: COREG 12.5 MG PO SCH (22:03)
[2021-07-29] MEDS ORDERED: Robitussin-Dm Syrup PO PRN (07:57)
[2021-07-29] MEDS: PROVENTIL 2.5 MG/3 ML NEB IH SCH ×4 (08:07→19:00)
--- NOTE | 2021-07-29 08:23 | PCM.HP ---
History of Present Illness - Chief Complaint Chief Complaint: c/o fever, chills, cough and chest congestion for 2-3 days History of Present Illness: is a 71 year old male.PMHx of COPD, HTN started having fever, bodyache, cough and chest congestion for 2-3 days, No chest pain denies any other complaints - Review of Systems Constitutional: Fever, Malaise, No Chills Eyes: No Symptoms Ears, Nose, & Throat: No Symptoms Respiratory: Cough, Orthopnea, Short Of Breath, Wheezing Cardiac: No Chest Pain, No Edema, No Syncope Abdominal/Gastrointestinal: No Abdominal Pain, No Nausea, No Vomiting, No Diarrhea Genitourinary Symptoms: No Dysuria Musculoskeletal: No Back Pain, No Neck Pain Skin: No Rash Neurological: No Dizziness, No Focal Weakness, No Sensory Changes Psychological: No Symptoms Endocrine: No Symptoms Hematologic/Lymphatic: No Symptoms Immunological/Allergic: No Symptoms Medications & Allergies Home Medications: Home Medication List Amlodipine Besylate 5 mg [Norvasc 5 mg] 5 mg PO 189903/09/21 [History Confirmed 07/28/21] Famotidine 20 mg [Pepcid 20 MG] 1 tab PO 189903/09/21 [History Confirmed 07/28/21] Lisinopril/Hydrochlorothiazide [Lisinopril-Hctz 20-25 mg Tab] 1 tab PO 189903/09/21 [History Confirmed 07/28/21] PANTOPRAZOLE 40 mg Tablet [Protonix 40MG Tablet] 1 tab PO 189903/09/21 [History Confirmed 07/28/21] Albuterol 2.5 mg/3 ml Neb [Proventil 2.5 mg/3 ml Neb] 2.5 mg IH Q4H PRN PRN 07/28/21 [History Confirmed 07/28/21] Albuterol Sulfate [Albuterol Sulfate Hfa] 1 inh IH Q4H PRN PRN 07/28/21 [History Confirmed 07/28/21] Aspirin [Aspirin EC] 81 mg PO 1900 07/28/21 [History Confirmed 07/28/21] Carvedilol 25 mg PO BID 07/28/21 [History Confirmed 07/28/21] Fluticasone/Umeclidin/Vilanter [Trelegy Ellipta 100-62.5-25] 1 each IH DAILY 07/28/21 [History Confirmed 07/28/21] Allergies/Adverse Reactions: Allergies Allergy/AdvReac Type Severity Reaction Status Date / Time No Known Drug Allergies Allergy Verified 07/28/21 13:16 - Past Medical History Past Medical History: Yes Neurological History: No Pertinent History ENT History: No Pertinent History Cardiac History: Hypertension Respiratory History: Asthma, Bronchitis, COPD, Pneumonia Endocrine Medical History: No Pertinent History Musculoskelatal History: No Pertinent History GI Medical History: No Pertinent History History: No Pertinent History Pyscho-Social History: No Pertinent History Male Reproductive Disorders: No Pertinent History - Past Surgical History Past Surgical History: Yes Neuro Surgical History: No Pertinent History Cardiac History: No Pertinent History Respiratory Surgery: No Pertinent History GI Surgical History: No Pertinent History Genitourinary Surgical Hx: No Pertinent History Musculskeletal Surgical Hx: Joint Replacement, Orthopedic Surgery Male Surgical History: No Pertinent History Other Surgical History: LEFT HIP REPLACEMENT. LEFT KNEE REPLACEMENT. left hand surgery - Social History Smoking Status: Former smoker Exposure to second hand smoke: No Alcohol: Occasionally Drug Use: none Significant Family History: no pertinent family hx - Physical Exam Vital Signs: Vital Signs - 24 hr Temp Pulse Resp BP Pulse Ox 07/29/21 08:10 58 L 16 94 L 07/29/21 08:00 98.5 F 62 20 181/80 96 07/29/21 04:00 98.8 F 61 18 181/77 93 L 07/29/21 00:00 99.6 F 67 19 144/68 96 07/28/21 19:45 97.9 F 56 L 19 186/74 98 07/28/21 18:43 65 16 96 07/28/21 16:00 97.6 F 64 18 174/81 93 L 07/28/21 14:16 61 20 95 07/28/21 13:22 98.4 F 59 L 20 183/89 97 General Appearance: no apparent distress, alert Neurologic Exam: alert, oriented x 3, cooperative, normal mood/affect, nml c erebellar function, nml station & gait, sensation nml, No motor deficits Eye Exam: PERRL/EOMI, eyes nml inspection Ears, Nose, Throat Exam: normal ENT inspection, TMs normal, pharynx normal, moist mucous membranes Neck Exam: normal inspection, non-tender, supple, full range of motion Respiratory Exam: diminished breath sounds, crackles/rales, wheezing, No respiratory distress Cardiovascular Exam: regular rate/rhythm, normal heart sounds, normal peripheral pulses Gastrointestinal/Abdomen Exam: soft, normal bowel sounds, No tenderness, No mass Back Exam: normal inspection, normal range of motion, No CVA tenderness, No v ertebral tenderness Extremity Exam: normal inspection, normal range of motion, pelvis stable Skin Exam: normal color, warm, dry, No rash Lymphatic Exam: No adenopathy Results - Labs Lab/Micro Results: Lab Results-Last 24 Hours 07/28/21 07/28/21 Range/Units 13:10 13:10 WBC 10.6 H (4.0-10.5) K/mm3 RBC 4.32 (4.1-5.6) M/mm3 Hgb 10.7 L (12.5-18.0) gm/dl Hct 33.9 L (42-50) % MCV 78.5 (78-100) fl MCH 24.8 L (26-32) pg MCHC 31.6 L (32-36) g/dl RDW 14.6 H (11.5-14.0) % Plt Count 335 (150-450) K/mm3 MPV 10.0 (7.5-11.0) fl Gran % 74.0 H (36.0-66.0) % Eos # (Auto) 0.39 (0-0.5) Absolute Lymphs (auto) 1.31 (1.0-4.6) Absolute Monos (auto) 1.02 (0.0-1.3) Lymphocytes % 12.4 L (24.0-44.0) % Monocytes % 9.7 (0.0-12.0) % Eosinophils % 3.7 (0.00-5.0) % Basophils % 0.2 (0.0-0.4) % Absolute Granulocytes 7.81 H (1.4-6.9) Basophils # 0.02 (0-0.4) Sodium 139 (137-145) mmol/L Potassium 3.6 (3.5-5.1) mmol/L Chloride 104 (98-107) mmol/L Carbon Dioxide 24 (22-30) mmol/L Anion Gap 14.4 (5-15) MEQ/L BUN 25 H (9-20) mg/dL Creatinine 1.56 H (0.66-1.25) mg/dL Estimated GFR 46.6 ML/MIN Glucose 120 H (74-106) mg/dL Calcium 9.0 (8.4-10.2) mg/dL - Radiology Impressions Radiology Exams & Impressions: Radiology Procedures Category Date Time Status CHEST 2 VIEWS (PA AND LAT) Stat Exams 07/28/21 12:52 Completed - Other Procedures and Tests Respiratory Therapy 07/28/21 14:00 Respiratory Therapy Assessment DAILY Assessment/Plan (1) COPD exacerbation Current Visit: No Status: Acute Assessment & Plan: Lab Results-Last 24 Hours 07/28/21 07/28/21 Range/Units 13:10 13:10 WBC 10.6 H (4.0-10.5) K/mm3 RBC 4.32 (4.1-5.6) M/mm3 Hgb 10.7 L (12.5-18.0) gm/dl Hct 33.9 L (42-50) % MCV 78.5 (78-100) fl MCH 24.8 L (26-32) pg MCHC 31.6 L (32-36) g/dl RDW 14.6 H (11.5-14.0) % Plt Count 335 (150-450) K/mm3 MPV 10.0 (7.5-11.0) fl Gran % 74.0 H (36.0-66.0) % Eos # (Auto) 0.39 (0-0.5) Absolute Lymphs (auto) 1.31 (1.0-4.6) Absolute Monos (auto) 1.02 (0.0-1.3) Lymphocytes % 12.4 L (24.0-44.0) % Monocytes % 9.7 (0.0-12.0) % Eosinophils % 3.7 (0.00-5.0) % Basophils % 0.2 (0.0-0.4) % Absolute Granulocytes 7.81 H (1.4-6.9) Basophils # 0.02 (0-0.4) Sodium 139 (137-145) mmol/L Potassium 3.6 (3.5-5.1) mmol/L Chloride 104 (98-107) mmol/L Carbon Dioxide 24 (22-30) mmol/L Anion Gap 14.4 (5-15) MEQ/L BUN 25 H (9-20) mg/dL Creatinine 1.56 H (0.66-1.25) mg/dL Estimated GFR 46.6 ML/MIN Glucose 120 H (74-106) mg/dL Calcium 9.0 (8.4-10.2) mg/dL Medication Report Albuterol Sulfate (Proventil 2.5 Mg/3 Ml Neb) 2.5 mg IH QIDRT [facility] Stop: 08/27/21 14:59 Last Admin: 07/29/21 08:07 Dose: 2.5 mg Documented by: AC Nebulizer Treatment Document 07/29/21 08:07 SP (Rec: 07/29/21 08:10 SP [id number]) Therapy Aerosol Therapy Initial Aerosol Therapy Treatment Method Nebulizer Treatment Tolerance Good Amlodipine Besylate (Norvasc 5 Mg) 5 mg PO 1900 [facility] Stop: 08/27/21 18:59 Last Admin: 07/28/21 18:29 Dose: 5 mg Documented by: ARLEN Aspirin (Ecotrin 81 Mg) 81 mg PO 1900 [facility] Stop: 08/27/21 18:59 Last Admin: 07/28/21 18:28 Dose: 81 mg Documented by: ARLEN Carvedilol (Coreg 12.5 Mg) 25 mg PO BID [facility] Stop: 08/27/21 21:59 Last Admin: 07/28/21 22:03 Dose: 25 mg Documented by: GINNA Famotidine (Pepcid 20 Mg) 20 mg PO 1900 [facility] Stop: 08/27/21 18:59 Last Admin: 07/28/21 18:28 Dose: 20 mg Documented by: ARLEN Hydrochlorothiazide (Hydrodiuril 25 Mg) 25 mg PO 1900 [facility] Stop: 08/27/21 18:59 Last Admin: 07/28/21 18:29 Dose: 25 mg Documented by: ARLEN Ceftriaxone Sodium/Dextrose (Rocephin 1 Gm-D5w 50 Ml Bag) 1 g in 50 mls @ 100 mls/hr IV Q24H10 [facility] Stop: 07/31/21 12:59 Last Admin: 07/28/21 13:52 Dose: 100 mls/hr Documented by: ARLEN Azithromycin (Zithromax 500 Mg/ 250 Ml Nacl Premix) 500 mg in 250 mls @ 125 mls/hr IV DAILY [facility] Stop: 08/27/21 12:59 Last Admin: 07/28/21 15:00 Dose: 125 mls/hr Documented by: ARLEN Sodium Chloride (Sodium Chloride 0.9% 1000 Ml) 1,000 mls @ 50 mls/hr IV .Q20H [facility] Stop: 08/27/21 13:29 Last Admin: 07/28/21 13:51 Dose: 50 mls/hr Documented by: ARLEN Infusion/Titration Document 07/28/21 13:51 AW (Rec: 07/28/21 13:51 AW [id number]) Dosing & Rate IV Rate 50 Increase/Decrease Started Cumulative Dose Not Applicable IV Intake Container Volume 1,000 Volume Adjustment/Waste 0 Lisinopril (Zestril 20 Mg) 20 mg PO 1900 [facility] Stop: 08/27/21 18:59 Last Admin: 07/28/21 18:29 Dose: 20 mg Documented by: ARLEN Pantoprazole Sodium (Protonix 40mg Tablet) 40 mg PO 1900 [facility] Stop: 08/27/21 18:59 Last Admin: 07/28/21 18:28 Dose: 40 mg Documented by: ARLEN Code(s): J44.1 - CHRONIC OBSTRUCTIVE PULMONARY DISEASE W (ACUTE) EXACERBATION (2) Bronchitis Current Visit: No Status: Acute Code(s): J40 - BRONCHITIS, NOT SPECIFIED ACUTE OR CHRONIC
--- NOTE | 2021-07-29 08:25 | PCM.NOTE ---
Date and Time: 07/29/21822 Subjective Assessment: doing little better - Review of Systems Constitutional: No Fever, No Chills Eyes: No Symptoms Ears, Nose, & Throat: No Symptoms Respiratory: Cough, Short Of Breath, Wheezing Cardiac: No Chest Pain, No Edema, No Syncope Abdominal/Gastrointestinal: No Abdominal Pain, No Nausea, No Vomiting, No Diarrhea Genitourinary Symptoms: No Dysuria Musculoskeletal: No Back Pain, No Neck Pain Skin: No Rash Neurological: No Dizziness, No Focal Weakness, No Sensory Changes Psychological: No Symptoms Endocrine: No Symptoms Hematologic/Lymphatic: No Symptoms Immunological/Allergic: No Symptoms Objective Exam General Appearance: no apparent distress, alert Neurologic Exam: alert, oriented x 3, cooperative, normal mood/affect, sensation nml, No motor deficits Skin Exam: normal color, warm, dry Eye Exam: PERRL, EOMI, eyes nml inspection Ears, Nose, Throat Exam: normal ENT inspection, pharynx normal, moist mucous membranes Neck Exam: normal inspection, non-tender, supple, full range of motion Respiratory Exam: normal breath sounds, diminished breath sounds, crackles/rales, rhonchi, wheezing, No respiratory distress Cardiovascular Exam: regular rate/rhythm, normal heart sounds Gastrointestinal/Abdomen Exam: soft, No tenderness, No mass Extremity Exam: normal inspection, normal range of motion Back Exam: normal inspection, normal range of motion, No CVA tenderness, No vertebral tenderness Male Genitalia Exam: deferred Rectal Exam: deferred OBJECTIVE DATA Vital Signs: Vital Signs - 24 hr Temp Pulse Resp BP Pulse Ox 07/29/21 08:10 58 L 16 94 L 07/29/21 08:00 98.5 F 62 20 181/80 96 07/29/21 04:00 98.8 F 61 18 181/77 93 L 07/29/21 00:00 99.6 F 67 19 144/68 96 07/28/21 19:45 97.9 F 56 L 19 186/74 98 07/28/21 18:43 65 16 96 07/28/21 16:00 97.6 F 64 18 174/81 93 L 07/28/21 14:16 61 20 95 07/28/21 13:22 98.4 F 59 L 20 183/89 97 Pain Assessment - Last Documented Pain Intensity 0 Intake and Output: Intake & Output 07/26/21 07/27/21 07/28/21/09/21 11:59 11:59 11:59 11:59 Intake Total 1757 Balance 1757 Weight 111.9 kg Lab Results: Lab Results-Last 24 Hours 07/28/21 07/28/21 Range/Units 13:10 13:10 WBC 10.6 H (4.0-10.5) K/mm3 RBC 4.32 (4.1-5.6) M/mm3 Hgb 10.7 L (12.5-18.0) gm/dl Hct 33.9 L (42-50) % MCV 78.5 (78-100) fl MCH 24.8 L (26-32) pg MCHC 31.6 L (32-36) g/dl RDW 14.6 H (11.5-14.0) % Plt Count 335 (150-450) K/mm3 MPV 10.0 (7.5-11.0) fl Gran % 74.0 H (36.0-66.0) % Eos # (Auto) 0.39 (0-0.5) Absolute Lymphs (auto) 1.31 (1.0-4.6) Absolute Monos (auto) 1.02 (0.0-1.3) Lymphocytes % 12.4 L (24.0-44.0) % Monocytes % 9.7 (0.0-12.0) % Eosinophils % 3.7 (0.00-5.0) % Basophils % 0.2 (0.0-0.4) % Absolute Granulocytes 7.81 H (1.4-6.9) Basophils # 0.02 (0-0.4) Sodium 139 (137-145) mmol/L Potassium 3.6 (3.5-5.1) mmol/L Chloride 104 (98-107) mmol/L Carbon Dioxide 24 (22-30) mmol/L Anion Gap 14.4 (5-15) MEQ/L BUN 25 H (9-20) mg/dL Creatinine 1.56 H (0.66-1.25) mg/dL Estimated GFR 46.6 ML/MIN Glucose 120 H (74-106) mg/dL Calcium 9.0 (8.4-10.2) mg/dL Radiology Exams: Radiology Procedures Category Date Time Status CHEST 2 VIEWS (PA AND LAT) Stat Exams 07/28/21 12:52 Completed Assessment/Plan (1) COPD exacerbation Current Visit: Yes Status: Acute Assessment & Plan: Chief Complaint Diagnosis c/o fever, chills, cough and chest congestion for 2-3 days Allergies Allergy/AdvReac Type Severity Reaction Status Date / Time No Known Drug Allergies Allergy Verified 07/28/21 13:16 Vital Signs (Last 24 hours) Temp Pulse Resp BP Pulse Ox 07/29/21 08:10 58 L 16 94 L 07/29/21 08:00 98.5 F 62 20 181/80 96 07/29/21 04:00 98.8 F 61 18 181/77 93 L 07/29/21 00:00 99.6 F 67 19 144/68 96 07/28/21 19:45 97.9 F 56 L 19 186/74 98 07/28/21 18:43 65 16 96 07/28/21 16:00 97.6 F 64 18 174/81 93 L 07/28/21 14:16 61 20 95 07/28/21 13:22 98.4 F 59 L 20 183/89 97 Home Medications Medication Instructions Recorded Confirmed Last Taken Type Albuterol 2.5 mg/3 ml Neb 2.5 mg IH Q4H PRN PRN 07/28/21 07/28/21 Unknown History [Proventil 2.5 mg/3 ml Neb] Albuterol Sulfate [Albuterol 1 inh IH Q4H PRN PRN 07/28/21 07/28/21 Unknown History Sulfate Hfa] Aspirin [Aspirin EC] 81 mg PO 1900 07/28/21 07/28/21 07/27/21 History Carvedilol 25 mg PO BID 07/28/21 07/28/21 07/28/21 History Fluticasone/Umeclidin/Vilanter 1 each IH DAILY 07/28/21 07/28/21 07/28/21 History [Terri Bain 100-62.5-25] Current Medications Generic Name Dose Route Start Last Admin Trade Name Freq PRN Reason Stop Dose Admin Albuterol Sulfate 2.5 mg 07/28/21 15:00 07/29/21 08:07 Proventil 2.5 Mg/3 Ml Neb IH 08/27/21 14:59 2.5 mg QIDRT LEA Administration Albuterol Sulfate 2.5 mg 07/28/21 14:01 Proventil 2.5 Mg/3 Ml Neb IH 08/27/21 14:00 Q4H PRN PRN SHORTNESS OF BREATH/WHEEZING Amlodipine Besylate 5 mg 07/28/21 19:00 07/28/21 18:29 Norvasc 5 Mg PO 08/27/21 18:59 5 mg 1900 LEA Administration Aspirin 81 mg 07/28/21 19:00 07/28/21 18:28 Ecotrin 81 Mg PO 08/27/21 18:59 81 mg 1900 LEA Administration Carvedilol 25 mg 07/28/21 22:00 07/28/21 22:03 Coreg 12.5 Mg PO 08/27/21 21:59 25 mg BID LEA Administration Famotidine 20 mg 07/28/21 19:00 07/28/21 18:28 Pepcid 20 Mg PO 08/27/21 18:59 20 mg 1900 LEA Administration Guaifenesin/Dextromethorphan 10 ml 07/29/21 07:57 Robitussin-Dm Syrup PO 08/28/21 07:56 Q4H PRN PRN COUGH Hydrochlorothiazide 25 mg 07/28/21 19:00 07/28/21 18:29 Hydrodiuril 25 Mg PO 08/27/21 18:59 25 mg 1900 LEA Administration Ceftriaxone Sodium/Dextrose 1 g in 50 mls @ 100 mls/hr 07/28/21 13:00 07/28/21 13:52 Rocephin 1 Gm-D5w 50 Ml Bag IV 07/31/21 12:59 100 mls/hr Q24H10 LEA Administration Azithromycin 500 mg in 250 mls @ 125 mls/hr 07/28/21 13:00 07/28/21 15:00 Zithromax 500 Mg/ 250 Ml Nacl Premix IV 08/27/21 12:59 125 mls/hr DAILY LEA Administration Sodium Chloride 1,000 mls @ 50 mls/hr 07/28/21 13:30 07/28/21 13:51 Sodium Chloride 0.9% 1000 Ml IV 08/27/21 13:29 50 mls/hr .Q20H LEA Administration Lisinopril 20 mg 07/28/21 19:00 07/28/21 18:29 Zestril 20 Mg PO 08/27/21 18:59 20 mg 1900 LEA Administration Miscellaneous Information 1 each 07/28/21 15:45 Medication Intervention 08/27/21 15:44 .RN TO CHECK LEA Pantoprazole Sodium 40 mg 07/28/21 19:00 07/28/21 18:28 Protonix 40mg Tablet PO 08/27/21 18:59 40 mg 1900 LEA Administration Discontinued Medications Generic Name Dose Route Start Last Admin Trade Name Freq PRN Reason Stop Dose Admin Non-Formulary Medication 1 tab 07/28/21 19:00 Lisinopril/Hydrochlorothiazide [Lisinopril-Hctz 20-25 Mg Tab] PO 08/27/21 18:59 1900 LEA Intake & Output (Last 24 hours) 07/26/21 07/27/21 07/28/21 07/29/21 11:59 11:59 11:59 11:59 Intake Total 1757 Balance 1757 Weight 111.9 kg Microbiology Results (Last 24 hours) 07/28/21 13:29 Blood Blood Culture Gram Stain - Pending 07/28/21 13:29 Blood Blood Culture - Pending 07/28/21 13:23 Blood Blood Culture Gram Stain - Pending 07/28/21 13:23 Blood Blood Culture - Pending Laboratory Results (Last 24 hours) 07/28/21 07/28/21 13:10 13:10 WBC 10.6 H RBC 4.32 Hgb 10.7 L Hct 33.9 L MCV 78.5 MCH 24.8 L MCHC 31.6 L RDW 14.6 H Plt Count 335 MPV 10.0 Gran % 74.0 H Eos # (Auto) 0.39 Absolute Lymphs (auto) 1.31 Absolute Monos (auto) 1.02 Lymphocytes % 12.4 L Monocytes % 9.7 Eosinophils % 3.7 Basophils % 0.2 Absolute Granulocytes 7.81 H Basophils # 0.02 Sodium 139 Potassium 3.6 Chloride 104 Carbon Dioxide 24 Anion Gap 14.4 BUN 25 H Creatinine 1.56 H Estimated GFR 46.6 Glucose 120 H Calcium 9.0 Orders (Last 24 hours) Category Date Time Status Up Ad Amber TOLERATED Activity 07/28/21 12:51 Active IV Insertion ROUTINE Care 07/28/21 12:52 Active Implement Pneumonia Pathway ROUTINE Care 07/28/21 12:52 Active Miscellaneous Nursing Order ASORD Care 07/28/21 12:[address] in Observation ROUTINE Care 07/28/21 12:51 Active House Regular Diet Diet 07/28/21 Lunch Active CHEST 2 VIEWS (PA AND LAT) Stat Exams 07/28/21 12:52 Completed BLOOD CULTURE Stat Lab 07/28/21 13:29 Received BMP Stat Lab 07/28/21 13:10 Completed CBC W DIFF Stat Lab 07/28/21 13:10 Completed Albuterol 2.5 mg/3 ml Neb [Proventil 2.5 mg/3 ml Neb Med 07/28/21 14:01 Active ] 2.5 mg IH Q4H PRN PRN Albuterol 2.5 mg/3 ml Neb [Proventil 2.5 mg/3 ml Neb Med 07/28/21 15:00 Active ] 2.5 mg IH QIDRT Amlodipine Besylate 5 mg [Norvasc 5 mg] Med 07/28/21 19:00 Active 5 mg PO 1900 Aspirin EC 81 mg [Ecotrin 81 mg] Med 07/28/21 19:00 Active 81 mg PO 1900 Azithromycin 500 mg/250 ml [Zithromax 500 MG/ 250 ML Med 07/28/21 13:00 Active NaCl Premix] 500 mg in 250 ml IV DAILY Carvedilol 12.5 mg [Coreg 12.5 mg] Med 07/28/21 22:00 Active 25 mg PO BID Ceftriaxone 1 GM/50 ML PREMIX* [ROCEPHIN 1 Gm-D5w 50 ml Med 07/28/21 13:00 Active Bag] 1 g in 50 ml IV Q24H10 Famotidine 20 mg [Pepcid 20 MG] Med 07/28/21 19:00 Active 20 mg PO 1900 Guaifenesin/D-Methorphan Hb [Robitussin-Dm Syrup] Med 07/29/21 07:57 Active 10 ml PO Q4H PRN PRN Hydrochlorothiazide 25 mg [hydroDIURIL 25 MG] Med 07/28/21 19:00 Active 25 mg PO 1900 Lisinopril 20 mg [Zestril 20 MG] Med 07/28/21 19:00 Active 20 mg PO 1900 Lisinopril/Hydrochlorothiazide [Lisinopril-Hctz 20-25 Med 07/28/21 19:00 Discontinued mg Tab] 1 tab PO 1900 Medication Intervention Med 07/28/21 15:45 Active 1 each MC .RN TO CHECK NaCl 0.9% 1000 ml [Sodium Chloride 0.9% 1000 ML] 1,000 Med 07/28/21 13:30 Active ml IV 50 mls/hr PANTOPRAZOLE 40 mg Tablet [Protonix 40MG Tablet] Med 07/28/21 19:00 Active 40 mg PO 1900 Pulse Oximetry .spot check RT 07/28/21 14:00 Active RT Screen per Nursing Assess ONCE RT 07/28/21 13:47 Completed Respiratory Therapy Assessment DAILY RT 07/28/21 14:00 Active Respiratory Therapy Consult ROUTINE RT 07/28/21 12:52 Completed Patient Care Notes (Last 24 hours) 07/28/21 23:50 Nursing Note by Chaya Gama Dr to discontinue telemetry at this time. Initialized on 07/28/21 23:50 - END OF NOTE Code(s): J44.1 - CHRONIC OBSTRUCTIVE PULMONARY DISEASE W (ACUTE) EXACERBATION (2) Bronchitis Current Visit: Yes Status: Acute Code(s): J40 - BRONCHITIS, NOT SPECIFIED ACUTE OR CHRONIC
[2021-07-29] MEDS: COREG 12.5 MG PO SCH ×2 (08:26→21:06)
[2021-07-29] MEDS: ROCEPHIN 1 Gm-D5w 50 ml Bag** 1 G/50 ML IVPB IV SCH (09:59)
[2021-07-29] MEDS ORDERED: NON-FORMULARY ITEM (Fluticasone/Umeclidin/Vilanter [Trelegy Ellipta 100-62.5-25] 1 EACH) IH SCH (10:00)
[2021-07-29] MEDS: Zithromax 500 MG/ 250 ML NaCl Premix 500 MG/250 ML IVPB IV SCH (10:04)
[2021-07-29] MEDS: Robitussin AC Syrup Unit Dose Cup PO PRN ×3 (12:40→21:08)
[2021-07-29] MEDS: Sodium Chloride 0.9% 1000 ML 1,000 ML IV SCH (14:36)
[2021-07-29] MEDS: hydroDIURIL 25 MG PO SCH (17:16)
[2021-07-29] MEDS: NORVASC 5 MG PO SCH (17:17)
[2021-07-29] MEDS: Pepcid 20 MG PO SCH (18:20)
[2021-07-29] MEDS: ECOTRIN 81 MG PO SCH (18:21)
[2021-07-29] MEDS: Protonix 40MG Tablet PO SCH (18:21)
[2021-07-29] MEDS: Zestril 20 MG PO SCH (18:22)
[2021-07-30] MEDS: PROVENTIL 2.5 MG/3 ML NEB IH SCH ×4 (06:41→19:24)
[2021-07-30] MEDS: Zithromax 500 MG/ 250 ML NaCl Premix 500 MG/250 ML IVPB IV SCH (08:22)
[2021-07-30] MEDS: COREG 12.5 MG PO SCH ×2 (08:26→22:23)
[2021-07-30] MEDS ORDERED: NORVASC 5 MG PO ONE (09:12)
[2021-07-30] MEDS ORDERED: TORAdol 30 mg Injection IV ONE (09:12)
[2021-07-30] MEDS: ROCEPHIN 1 Gm-D5w 50 ml Bag** 1 G/50 ML IVPB IV SCH (10:12)
[2021-07-30] MEDS ORDERED: solu-MEDROL 40 MG IV ONE (12:08)
[2021-07-30] MEDS ORDERED: Sterile H2O 10 ml IJ SCH (12:30)
[2021-07-30] MEDS: Sodium Chloride 0.9% 1000 ML 1,000 ML IV SCH (13:10)
[2021-07-30] MEDS: ZYLOPRIM 100 MG PO SCH (13:10)
[2021-07-30] MEDS: solu-MEDROL 40 MG IV SCH ×2 (13:11→22:22)
--- NOTE | 2021-07-30 13:25 | PCM.NOTE ---
Date and Time: 07/30/21 1324 Subjective Assessment: c/o cough - Review of Systems Constitutional: No Fever, No Chills Eyes: No Symptoms Ears, Nose, & Throat: No Symptoms Respiratory: Cough, Orthopnea, Short Of Breath Cardiac: No Chest Pain, No Edema, No Syncope Abdominal/Gastrointestinal: No Abdominal Pain, No Nausea, No Vomiting, No Diarrhea Genitourinary Symptoms: No Dysuria Musculoskeletal: No Back Pain, No Neck Pain Skin: No Rash Neurological: No Dizziness, No Focal Weakness, No Sensory Changes Psychological: No Symptoms Endocrine: No Symptoms Hematologic/Lymphatic: No Symptoms Immunological/Allergic: No Symptoms Objective Exam General Appearance: no apparent distress, alert Neurologic Exam: alert, oriented x 3, cooperative, normal mood/affect, nml cerebellar function, sensation nml, No motor deficits Skin Exam: normal color, warm, dry Eye Exam: PERRL, EOMI, eyes nml inspection Ears, Nose, Throat Exam: normal ENT inspection, pharynx normal, moist mucous membranes Neck Exam: normal inspection, non-tender, supple, full range of motion Respiratory Exam: normal breath sounds, lungs clear, No respiratory distress Cardiovascular Exam: regular rate/rhythm, normal heart sounds Gastrointestinal/Abdomen Exam: soft, No tenderness, No mass Extremity Exam: normal inspection, normal range of motion Back Exam: normal inspection, normal range of motion, No CVA tenderness, No vertebral tenderness Male Genitalia Exam: deferred Rectal Exam: deferred OBJECTIVE DATA Vital Signs: Vital Signs - 24 hr Temp Pulse Resp BP Pulse Ox 07/30/21 12:27 61 16 95 07/30/21 06:42 60 20 95 07/30/21 04:59 98.4 F 61 20 153/68 96 07/30/21 00:59 98 F 60 28 H 123/59 97 07/29/21 21:09 187/86 07/29/21 19:47 97.6 F 62 16 218/99 97 07/29/21 19:02 62 16 97 07/29/21 18:33 97.6 F 58 L 20 218/99 97 07/29/21 17:15 190/84 07/29/21 16:00 98.2 F 59 L 16 96 07/29/21 15:37 59 L 16 96 Pain Assessment - Last Documented Pain Intensity 8 Pain Scale Used 0-10 Pain Scale Intake and Output: Intake & Output 07/28/21 07/29/21 07/30/21 07/31/21 11:59 11:59 11:59 11:59 Intake Total 2056 3619 Balance 2056 3619 Weight 111.9 kg Lab Results: Lab Results-Last 24 Hours 07/30/21 Range/Units 09:25 Uric Acid 8.8 H (3.5-7.2) mg/dL Radiology Exams: Radiology Procedures Category Date Time Status CHEST 2 VIEWS (PA AND LAT) Routine Exams 07/31/21 07:00 Ordered CHEST 2 VIEWS (PA AND LAT) Stat Exams 07/28/21 12:52 Completed Multi-Disciplinary Progress Notes: Multi-Disciplinary Progress Notes 07/30/21 09:23 Case Management Note by Autumn Stover PATIENT CONTINUES TO DENY ANY NEW NEEDS REGARDING DC AT THIS TIME. 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 Initialized on 07/30/21 09:23 - END OF NOTE Assessment/Plan (1) COPD exacerbation Current Visit: Yes Status: Acute Assessment & Plan: Chief Complaint Diagnosis c/o fever, chills, cough and chest congestion for 2-3 days Allergies Allergy/AdvReac Type Severity Reaction Status Date / Time No Known Drug Allergies Allergy Verified 07/28/21 13:16 Vital Signs (Last 24 hours) Temp Pulse Resp BP Pulse Ox 07/30/21 12:27 61 16 95 07/30/21 06:42 60 20 95 07/30/21 04:59 98.4 F 61 20 153/68 96 07/30/21 00:59 98 F 60 28 H 123/59 97 07/29/21 21:09 187/86 07/29/21 19:47 97.6 F 62 16 218/99 97 07/29/21 19:02 62 16 97 07/29/21 18:33 97.6 F 58 L 20 218/99 97 07/29/21 17:15 190/84 07/29/21 16:00 98.2 F 59 L 16 96 07/29/21 15:37 59 L 16 96 Home Medications Medication Instructions Recorded Confirmed Last Taken Type Albuterol 2.5 mg/3 ml Neb 2.5 mg IH Q4H PRN PRN 07/28/21 07/28/21 Unknown History [Proventil 2.5 mg/3 ml Neb] Albuterol Sulfate [Albuterol 1 inh IH Q4H PRN PRN 07/28/21 07/28/21 Unknown History Sulfate Hfa] Aspirin [Aspirin EC] 81 mg PO 1900 07/28/21 07/28/21 07/27/21 History Carvedilol 25 mg PO BID 07/28/21 07/28/21 07/28/21 History Fluticasone/Umeclidin/Vilanter 1 each IH DAILY 07/28/21 07/28/21 07/28/21 History [Terri Bain 100-62.5-25] Current Medications Generic Name Dose Route Start Last Admin Trade Name Freq PRN Reason Stop Dose Admin Albuterol Sulfate 2.5 mg 07/28/21 15:00 07/30/21 10:23 Proventil 2.5 Mg/3 Ml Neb IH 08/27/21 14:59 2.5 mg QIDRT LEA Administration Albuterol Sulfate 2.5 mg 07/28/21 14:01 Proventil 2.5 Mg/3 Ml Neb IH 08/27/21 14:00 Q4H PRN PRN SHORTNESS OF BREATH/WHEEZING Allopurinol 100 mg 07/30/21 12:11 07/30/21 13:10 Zyloprim 100 Mg PO 08/29/21 12:10 100 mg DAILY LEA Administration Amlodipine Besylate 5 mg 07/28/21 19:00 07/29/21 17:17 Norvasc 5 Mg PO 08/27/21 18:59 5 mg 1900 LEA Administration Aspirin 81 mg 07/28/21 19:00 07/29/21 18:21 Ecotrin 81 Mg PO 08/27/21 18:59 81 mg 1900 LEA Administration Carvedilol 25 mg 07/28/21 22:00 07/30/21 08:26 Coreg 12.5 Mg PO 08/27/21 21:59 25 mg BID LEA Administration Famotidine 20 mg 07/28/21 19:00 07/29/21 18:20 Pepcid 20 Mg PO 08/27/21 18:59 20 mg 1900 LEA Administration Guaifenesin/Codeine Phosphate 10 ml 07/29/21 12:13 07/29/21 21:08 Robitussin Ac Syrup Unit Dose Cup PO 08/28/21 12:12 10 ml QIDP PRN Administration COUGH Hydrochlorothiazide 25 mg 07/28/21 19:00 07/29/21 17:16 Hydrodiuril 25 Mg PO 08/27/21 18:59 25 mg 1900 LEA Administration Ceftriaxone Sodium/Dextrose 1 g in 50 mls @ 100 mls/hr 07/28/21 13:00 07/30/21 10:12 Rocephin 1 Gm-D5w 50 Ml Bag IV 08/01/21 12:59 100 mls/hr Q24H10 LEA Administration Azithromycin 500 mg in 250 mls @ 125 mls/hr 07/28/21 13:00 07/30/21 08:22 Zithromax 500 Mg/ 250 Ml Nacl Premix IV 08/27/21 12:59 125 mls/hr DAILY LEA Administration Sodium Chloride 1,000 mls @ 50 mls/hr 07/28/21 13:30 07/30/21 13:10 Sodium Chloride 0.9% 1000 Ml IV 08/27/21 13:29 50 mls/hr .Q20H LEA Administration Lisinopril 20 mg 07/28/21 19:00 07/29/21 18:22 Zestril 20 Mg PO 08/27/21 18:59 20 mg 1900 LEA Administration Methylprednisolone Sodium Succinate 40 mg 07/30/21 12:30 07/30/21 13:11 Solu-Medrol 40 Mg IV 08/29/21 12:29 40 mg Q12HT LEA Administration Miscellaneous Information 1 each 07/28/21 15:45 Medication Intervention MC 08/27/21 15:44 .RN TO CHECK LEA Pantoprazole Sodium 40 mg 07/28/21 19:00 07/29/21 18:21 Protonix 40mg Tablet PO 08/27/21 18:59 40 mg 1900 LEA Administration Sterile Water 1 ml 07/30/21 12:30 Sterile H2o 10 Ml IJ 08/29/21 12:29 Q12HT LEA Discontinued Medications Generic Name Dose Route Start Last Admin Trade Name Freq PRN Reason Stop Dose Admin Amlodipine Besylate 5 mg 07/30/21 09:12 07/30/21 09:39 Norvasc 5 Mg PO 07/30/21 09:13 5 mg STAT ONE Administration Guaifenesin/Dextromethorphan 10 ml 07/29/21 07:57 07/29/21 08:24 Robitussin-Dm Syrup PO 08/28/21 07:56 10 ml Q4H PRN PRN Administration COUGH Ketorolac Tromethamine 30 mg 07/30/21 09:12 07/30/21 09:41 Toradol 30 Mg Injection IV 07/30/21 09:13 30 mg ONCE ONE Administration Non-Formulary Medication 1 tab 07/28/21 19:00 Lisinopril/Hydrochlorothiazide [Lisinopril-Hctz 20-25 Mg Tab] PO 08/27/21 18:59 1900 LEA Sterile Water 1 ml 07/30/21 12:30 Sterile H2o 10 Ml IJ 08/29/21 12:29 Q12H LEA Intake & Output (Last 24 hours) 07/28/21 07/29/21 07/30/21 07/31/21 11:59 11:59 11:59 11:59 Intake Total 2056 3619 Balance 2056 3619 Weight 111.9 kg Microbiology Results (Last 24 hours) 07/28/21 13:29 Blood Blood Culture Gram Stain - Pending 07/28/21 13:29 Blood Blood Culture - Preliminary NO GROWTH TO DATE 07/28/21 13:23 Blood Blood Culture Gram Stain - Pending 07/28/21 13:23 Blood Blood Culture - Preliminary NO GROWTH TO DATE Laboratory Results (Last 24 hours) 07/30/21 09:25 Uric Acid 8.8 H Orders (Last 24 hours) Category Date Time Status CHEST 2 VIEWS (PA AND LAT) Routine Exams 07/31/21 07:00 Ordered CBC W DIFF AM.LAB Lab 07/31/21 04:00 Ordered CMP AM.LAB Lab 07/31/21 04:00 Ordered Uric Acid Urgent Lab 07/30/21 09:25 Completed Allopurinol 100 mg [Zyloprim 100 mg] Med 07/30/21 12:11 Active 100 mg PO DAILY Amlodipine Besylate 5 mg [Norvasc 5 mg] Med 07/30/21 09:12 Discontinued 5 mg PO STAT ONE KETOROLAC trometh 30 mg Inj [TORAdol 30 mg Injection Med 07/30/21 09:12 Discontinued ] 30 mg IV ONCE ONE Methylprednisolone Sod Suc 40M [solu-MEDROL 40 MG] Med 07/30/21 12:30 Active 40 mg IV Q12HT Water For Injection,Sterile [Sterile H2O 10 ml] Med 07/30/21 12:30 Discontinued 1 ml IJ Q12H Water For Injection,Sterile [Sterile H2O 10 ml] Med 07/30/21 12:30 Active 1 ml IJ Q12HT FLUTTER [Flutter Therapy] UD RT 07/30/21 12:11 Active Patient Care Notes (Last 24 hours) 07/30/21 09:23 Case Management Note by Autumn Stover PATIENT CONTINUES TO DENY ANY NEW NEEDS REGARDING DC AT THIS TIME. 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
[2021-07-30] MEDS: Sterile H2O 10 ml IJ SCH ×2 (13:52→22:30)
[2021-07-30] MEDS ORDERED: Catapres 0.1 MG PO PRN (16:53)
[2021-07-30] MEDS: Catapres 0.1 MG PO PRN (17:57)
[2021-07-30] MEDS: Pepcid 20 MG PO SCH (19:52)
[2021-07-30] MEDS: NORVASC 5 MG PO SCH (19:52)
[2021-07-30] MEDS: ECOTRIN 81 MG PO SCH (19:52)
[2021-07-30] MEDS: hydroDIURIL 25 MG PO SCH (19:53)
[2021-07-30] MEDS: Zestril 20 MG PO SCH (19:54)
[2021-07-30] MEDS: Protonix 40MG Tablet PO SCH (19:54)
[2021-07-31 04:46] VITALS: BP 174/77
[2021-07-31 07:36] LABS: Absolute Neutrophil Ct (ANC) 15.73 (1.4-6.9); BASOPHIL % 0.1 % (0.0-0.4); Basophil (Absolute #) 0.01 (0-0.4); Eosinophil % 0.1 % (0.00-5.0); Eosinophil (Absolute #) 0.01 (0-0.5); Hematocrit 36.7 % (42-50); Hemoglobin 11.2 gm/dl (12.5-18.0); Lymphocyte (Absolute #) 0.63 (1.0-4.6); Lymphocytes % 3.7 % (24.0-44.0); Mean Cell Volume 78.6 fl (78-100); Mean Corpuscular Hgb Concent. 30.5 g/dl (32-36); Mean Platelet Volume 10.3 fl (7.5-11.0); Monocyte (Absolute #) 0.56 (0.0-1.3); Monocytes % 3.3 % (0.0-12.0); Neutrophil % 92.8 % (36.0-66.0); Platelet Count 322 K/mm3 (150-450); Red Blood Count 4.67 M/mm3 (4.1-5.6); Red Cell Distribution Width 14.3 % (11.5-14.0); White Blood Count 16.9 K/mm3 (4.0-10.5)
[2021-07-31] MEDS: Catapres 0.1 MG PO PRN (07:39)
--- NOTE | 2021-07-31 07:39 | XRAY ---
Indication: Follow-up pneumonia. Comparison: July 28, 2021. PA/lateral chest again hyperinflated and clear with incidental left base calcified granuloma. Heart not enlarged. No new/acute abnormalities.
[2021-07-31] MEDS: PROVENTIL 2.5 MG/3 ML NEB IH SCH (07:42)
[2021-07-31 07:50] LABS: ALBUMIN 3.9 g/dL (3.5-5.0); ALKALINE PHOSPHATASE 80 U/L (38-126); ANION GAP 17.3 MEQ/L (5-15); BLOOD UREA NITROGEN 20 mg/dL (9-20); CHLORIDE 103 mmol/L (98-107); Calcium 9.3 mg/dL (8.4-10.2); Carbon Dioxide 21 mmol/L (22-30); Creatinine 1 1.16 mg/dL (0.66-1.25); EST GLOMERULAR FILTRATION RATE > 60.0 ML/MIN; Glucose 162 mg/dL (74-106); Potassium 4.1 mmol/L (3.5-5.1); SGOT/AST 25 U/L (17-59); SGPT/ALT 15 U/L (0-50); SODIUM 137 mmol/L (137-145); Total Protein 7.4 g/dL (6.3-8.2)
--- NOTE | 2021-07-31 08:01 | PCM.DS ---
Discharge Summary Date of Admission: 07/28/21 11:38 Admitting Physician: ANISHA BENITEZ Primary Care Provider: ANISHA BENITEZ Allergies Allergies No Known Drug Allergies Allergy (Verified 07/28/21 13:16) Hospital Summary - Hospital Course Hospital Course: Chief Complaint Diagnosis c/o fever, chills, cough and chest congestion for 2-3 days Allergies Allergy/AdvReac Type Severity Reaction Status Date / Time No Known Drug Allergies Allergy Verified 07/28/21 13:16 Vital Signs (Last 24 hours) Temp Pulse Resp BP Pulse Ox 07/31/21 07:42 67 16 97 07/31/21 04:00 98 F 65 22 174/77 95 07/30/21 23:46 97.7 F 58 L 24 173/73 95 07/30/21 19:54 98.5 F 74 24 189/84 95 07/30/21 19:24 77 17 94 L 07/30/21 16:00 98.2 F 68 18 205/90 96 07/30/21 15:27 68 28 H 96 07/30/21 13:00 98.1 F 60 22 190/85 96 07/30/21 12:27 61 16 95 07/30/21 09:00 97.4 F 62 20 163/74 95 Home Medications Medication Instructions Recorded Confirmed Last Taken Type Albuterol 2.5 mg/3 ml Neb 2.5 mg IH Q4H PRN PRN 07/28/21 07/28/21 Unknown History [Proventil 2.5 mg/3 ml Neb] Albuterol Sulfate [Albuterol 1 inh IH Q4H PRN PRN 07/28/21 07/28/21 Unknown History Sulfate Hfa] Aspirin [Aspirin EC] 81 mg PO 1900 07/28/21 07/28/21 07/27/21 History Carvedilol 25 mg PO BID 07/28/21 07/28/21 07/28/21 History Fluticasone/Umeclidin/Vilanter 1 each IH DAILY 07/28/21 07/28/21 07/28/21 History [Trelegy Ellipta 100-62.5-25] Current Medications Generic Name Dose Route Start Last Admin Trade Name Freq PRN Reason Stop Dose Admin Albuterol Sulfate 2.5 mg 07/28/21 15:00 07/31/21 07:42 Proventil 2.5 Mg/3 Ml Neb IH 08/27/21 14:59 2.5 mg QIDRT LEA Administration Albuterol Sulfate 2.5 mg 07/28/21 14:01 Proventil 2.5 Mg/3 Ml Neb IH 08/27/21 14:00 Q4H PRN PRN SHORTNESS OF BREATH/WHEEZING Allopurinol 100 mg 07/30/21 12:11 07/30/21 13:10 Zyloprim 100 Mg PO 08/29/21 12:10 100 mg DAILY LEA Administration Amlodipine Besylate 5 mg 07/28/21 19:00 07/30/21 19:52 Norvasc 5 Mg PO 08/27/21 18:59 5 mg 1900 LEA Administration Aspirin 81 mg 07/28/21 19:00 07/30/21 19:52 Ecotrin 81 Mg PO 08/27/21 18:59 81 mg 1900 LEA Administration Carvedilol 25 mg 07/28/21 22:00 07/30/21 22:23 Coreg 12.5 Mg PO 08/27/21 21:59 25 mg BID LEA Administration Clonidine 0.1 mg 07/30/21 17:00 07/31/21 07:39 Catapres 0.1 Mg PO 08/29/21 16:52 0.1 mg QIDPRN PRN Administration HYPERTENSION Famotidine 20 mg 07/28/21 19:00 07/30/21 19:52 Pepcid 20 Mg PO 08/27/21 18:59 20 mg 1900 LEA Administration Guaifenesin/Codeine Phosphate 10 ml 07/29/21 12:13 07/29/21 21:08 Robitussin Ac Syrup Unit Dose Cup PO 08/28/21 12:12 10 ml QIDP PRN Administration COUGH Hydrochlorothiazide 25 mg 07/28/21 19:00 07/30/21 19:53 Hydrodiuril 25 Mg PO 08/27/21 18:59 25 mg 1900 LEA Administration Ceftriaxone Sodium/Dextrose 1 g in 50 mls @ 100 mls/hr 07/28/21 13:00 07/30/21 10:12 Rocephin 1 Gm-D5w 50 Ml Bag IV 08/01/21 12:59 100 mls/hr Q24H10 LEA Administration Azithromycin 500 mg in 250 mls @ 125 mls/hr 07/28/21 13:00 07/30/21 08:22 Zithromax 500 Mg/ 250 Ml Nacl Premix IV 08/27/21 12:59 125 mls/hr DAILY LEA Administration Sodium Chloride 1,000 mls @ 50 mls/hr 07/28/21 13:30 07/30/21 13:10 Sodium Chloride 0.9% 1000 Ml IV 08/27/21 13:29 50 mls/hr .Q20H LEA Administration Lisinopril 20 mg 07/28/21 19:00 07/30/21 19:54 Zestril 20 Mg PO 08/27/21 18:59 20 mg 1900 LEA Administration Methylprednisolone Sodium Succinate 40 mg 07/30/21 12:30 07/30/21 22:22 Solu-Medrol 40 Mg IV 08/29/21 12:29 40 mg Q12HT LEA Administration Miscellaneous Information 1 each 07/28/21 15:45 Medication Intervention MC 08/27/21 15:44 .RN TO CHECK LEA Pantoprazole Sodium 40 mg 07/28/21 19:00 07/30/21 19:54 Protonix 40mg Tablet PO 08/27/21 18:59 40 mg 1900 LEA Administration Sterile Water 1 ml 07/30/21 12:30 07/30/21 22:30 Sterile H2o 10 Ml IJ 08/29/21 12:29 1 ml Q12HT LEA Administration Discontinued Medications Generic Name Dose Route Start Last Admin Trade Name Freq PRN Reason Stop Dose Admin Amlodipine Besylate 5 mg 07/30/21 09:12 07/30/21 09:39 Norvasc 5 Mg PO 07/30/21 09:13 5 mg STAT ONE Administration Clonidine 0.1 mg 07/30/21 16:53 Catapres 0.1 Mg PO 08/29/21 16:59 QID PRN HYPERTENSION Guaifenesin/Dextromethorphan 10 ml 07/29/21 07:57 07/29/21 08:24 Robitussin-Dm Syrup PO 08/28/21 07:56 10 ml Q4H PRN PRN Administration COUGH Ketorolac Tromethamine 30 mg 07/30/21 09:12 07/30/21 09:41 Toradol 30 Mg Injection IV 07/30/21 09:13 30 mg ONCE ONE Administration Non-Formulary Medication 1 tab 07/28/21 19:00 Lisinopril/Hydrochlorothiazide [Lisinopril-Hctz 20-25 Mg Tab] PO 08/27/21 18:59 1900 LEA Sterile Water 1 ml 07/30/21 12:30 Sterile H2o 10 Ml IJ 08/29/21 12:29 Q12H LEA Intake & Output (Last 24 hours) 07/28/21 07/29/21 07/30/21 07/31/21 11:59 11:59 11:59 11:59 Intake Total 2056 3619 3464 Output Total 900 Balance 2056 362 2564 Weight 111.9 kg Microbiology Results (Last 24 hours) 07/28/21 13:29 Blood Blood Culture Gram Stain - Pending 07/28/21 13:29 Blood Blood Culture - Preliminary NO GROWTH TO DATE 07/28/21 13:23 Blood Blood Culture Gram Stain - Pending 07/28/21 13:23 Blood Blood Culture - Preliminary NO GROWTH TO DATE Laboratory Results (Last 24 hours) 07/31/21 07/30/21 06:20 09:25 WBC 16.9 H RBC 4.67 Hgb 11.2 L Hct 36.7 L MCV 78.6 MCH 24.0 L MCHC 30.5 L RDW 14.3 H Plt Count 322 MPV 10.3 Gran % 92.8 H Eos # (Auto) 0.01 Absolute Lymphs (auto) 0.63 L Absolute Monos (auto) 0.56 Lymphocytes % 3.7 L Monocytes % 3.3 Eosinophils % 0.1 Basophils % 0.1 Absolute Granulocytes 15.73 H Basophils # 0.01 Uric Acid 8.8 H Orders (Last 24 hours) Category Date Time Status CHEST 2 VIEWS (PA AND LAT) Routine Exams 07/31/21 07:00 Completed CBC W DIFF AM.LAB Lab 07/31/21 06:20 Completed CMP AM.LAB Lab 07/31/21 06:20 Received Uric Acid Urgent Lab 07/30/21 09:25 Completed Allopurinol 100 mg [Zyloprim 100 mg] Med 07/30/21 12:11 Active 100 mg PO DAILY Amlodipine Besylate 5 mg [Norvasc 5 mg] Med 07/30/21 09:12 Discontinued 5 mg PO STAT ONE Clonidine HCl 0.1 mg [Catapres 0.1 MG] Med 07/30/21 16:53 Discontinued 0.1 mg PO QID PRN Clonidine HCl 0.1 mg [Catapres 0.1 MG] Med 07/30/21 17:00 Active 0.1 mg PO QIDPRN PRN KETOROLAC trometh 30 mg Inj [TORAdol 30 mg Injection Med 07/30/21 09:12 Discontinued ] 30 mg IV ONCE ONE Methylprednisolone Sod Suc 40M [solu-MEDROL 40 MG] Med 07/30/21 12:30 Active 40 mg IV Q12HT Water For Injection,Sterile [Sterile H2O 10 ml] Med 07/30/21 12:30 Discontinued 1 ml IJ Q12H Water For Injection,Sterile [Sterile H2O 10 ml] Med 07/30/21 12:30 Active 1 ml IJ Q12HT FLUTTER [Flutter Therapy] UD RT 07/30/21 12:11 Active Patient Care Notes (Last 24 hours) 07/30/21 09:23 Case Management Note by Autumn Stover PATIENT CONTINUES TO DENY ANY NEW NEEDS REGARDING DC AT THIS TIME. 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 Initialized on 07/30/21 09:23 - END OF NOTE - Vitals & Intake/Output Vital Signs: Vital Signs Temperature 98 F 07/31/21 04:00 Pulse Rate 67 07/31/21 07:42 Respiratory Rate 16 07/31/21 07:42 Blood Pressure 174/77 07/31/21 04:00 O2 Sat by Pulse Oximetry 97 07/31/21 07:42 Intake & Output: Intake & Output 07/28/21 07/29/21 07/30/21 07/31/21 11:59 11:59 11:59 11:59 Intake Total 2056 3620 3464 Output Total 900 Balance 20560 2564 Weight 111.9 kg - Lab Result Diagrams: 07/31/21 06:20 07/28/21 13:10 Lab Results-Last 24 Hrs: Lab Results-Last 24 Hours 07/30/21 07/31/21 Range/Units 09:25 06:20 WBC 16.9 H (4.0-10.5) K/mm3 RBC 4.67 (4.1-5.6) M/mm3 Hgb 11.2 L (12.5-18.0) gm/dl Hct 36.7 L (42-50) % MCV 78.6 (78-100) fl MCH 24.0 L (26-32) pg MCHC 30.5 L (32-36) g/dl RDW 14.3 H (11.5-14.0) % Plt Count 322 (150-450) K/mm3 MPV 10.3 (7.5-11.0) fl Gran % 92.8 H (36.0-66.0) % Eos # (Auto) 0.01 (0-0.5) Absolute Lymphs (auto) 0.63 L (1.0-4.6) Absolute Monos (auto) 0.56 (0.0-1.3) Lymphocytes % 3.7 L (24.0-44.0) % Monocytes % 3.3 (0.0-12.0) % Eosinophils % 0.1 (0.00-5.0) % Basophils % 0.1 (0.0-0.4) % Absolute Granulocytes 15.73 H (1.4-6.9) Basophils # 0.01 (0-0.4) Uric Acid 8.8 H (3.5-7.2) mg/dL Micro Results-Entire Visit: Microbiology 07/28/21 13:29 Blood Culture - Preliminary Blood NO GROWTH TO DATE 07/28/21 13:23 Blood Culture - Preliminary Blood NO GROWTH TO DATE - Radiology Exams Ordered Rad Exams-Entire Visit: Radiology Procedures Category Date Time Status CHEST 2 VIEWS (PA AND LAT) Routine Exams 07/31/21 07:00 Completed - Procedures and Test Procedures and Tests throughout Hospitalization: Therapy Orders & Screens 07/28/21 12:52 Respiratory Therapy Consult ROUTINE Comment: Reason For Exam: Diagnosis: Pneumonia 07/28/21 13:47 RT Screen per Nursing Assess ONCE Comment: Protocol Order Physician Instructions: Greater than 3 points order RT Admission Screen Reason For Exam: Triggered on Admission Diagnosis: Pneumonia Diagnosis: Pneumonia Pneumonia: Yes Home O2: No Asthma: Yes Home CPAP/BIPAP: No Home Nebs/MDI: Yes Total Points: 12 07/28/21 14:00 Respiratory Therapy Assessment DAILY Comment: Diagnosis: Pneumonia 07/30/21 12:11 FLUTTER [Flutter Therapy] UD Comment: Diagnosis: c/o fever, chills, cough and chest congestion for 2-3 days Discharge Exam General Appearance: no apparent distress, alert Neurologic Exam: alert, oriented x 3, cooperative, normal mood/affect, nml cerebellar function, sensation nml, No motor deficits Eye Exam: PERRL, EOMI, eyes nml inspection Ears, Nose, Throat Exam: normal ENT inspection, pharynx normal, moist mucous membranes Neck Exam: normal inspection, non-tender, supple, full range of motion Respiratory Exam: normal breath sounds, lungs clear, No respiratory distress Cardiovascular Exam: regular rate/rhythm, normal heart sounds Gastrointestinal/Abdomen Exam: soft, No tenderness, No mass Male Genitalia Exam: deferred Rectal Exam: deferred Back Exam: normal inspection, normal range of motion, No CVA tenderness, No katie tebral tenderness Extremity Exam: normal inspection, normal range of motion Skin Exam: normal color, warm, dry Final Diagnosis/Problem List - Final Discharge Diagnosis/Problem (1) COPD exacerbation Current Visit: Yes Status: Resolved Assessment & Plan: Chief Complaint Diagnosis c/o fever, chills, cough and chest congestion for 2-3 days Allergies Allergy/AdvReac Type Severity Reaction Status Date / Time No Known Drug Allergies Allergy Verified 07/28/21 13:16 Vital Signs (Last 24 hours) Temp Pulse Resp BP Pulse Ox 07/31/21 07:42 67 16 97 07/31/21 04:00 98 F 65 22 174/77 95 07/30/21 23:46 97.7 F 58 L 24 173/73 95 07/30/21 19:54 98.5 F 74 24 189/84 95 07/30/21 19:24 77 17 94 L 07/30/21 16:00 98.2 F 68 18 205/90 96 07/30/21 15:27 68 28 H 96 07/30/21 13:00 98.1 F 60 22 190/85 96 07/30/21 12:27 61 16 95 07/30/21 09:00 97.4 F 62 20 163/74 95 Home Medications Medication Instructions Recorded Confirmed Last Taken Type Albuterol 2.5 mg/3 ml Neb 2.5 mg IH Q4H PRN PRN 07/28/21 07/28/21 Unknown History [Proventil 2.5 mg/3 ml Neb] Albuterol Sulfate [Albuterol 1 inh IH Q4H PRN PRN 07/28/21 07/28/21 Unknown History Sulfate Hfa] Aspirin [Aspirin EC] 81 mg PO 1900 07/28/21 07/28/21 07/27/21 History Carvedilol 25 mg PO BID 07/28/21 07/28/21 07/28/21 History Fluticasone/Umeclidin/Vilanter 1 each IH DAILY 07/28/21 07/28/21 07/28/21 History [Terri Bain 100-62.5-25] Current Medications Generic Name Dose Route Start Last Admin Trade Name Freq PRN Reason Stop Dose Admin Albuterol Sulfate 2.5 mg 07/28/21 15:00 07/31/21 07:42 Proventil 2.5 Mg/3 Ml Neb IH 08/27/21 14:59 2.5 mg QIDRT LEA Administration Albuterol Sulfate 2.5 mg 07/28/21 14:01 Proventil 2.5 Mg/3 Ml Neb IH 08/27/21 14:00 Q4H PRN PRN SHORTNESS OF BREATH/WHEEZING Allopurinol 100 mg 07/30/21 12:11 07/30/21 13:10 Zyloprim 100 Mg PO 08/29/21 12:10 100 mg DAILY LEA Administration Amlodipine Besylate 5 mg 07/28/21 19:00 07/30/21 19:52 Norvasc 5 Mg PO 08/27/21 18:59 5 mg 1900 LEA Administration Aspirin 81 mg 07/28/21 19:00 07/30/21 19:52 Ecotrin 81 Mg PO 08/27/21 18:59 81 mg 1900 LEA Administration Carvedilol 25 mg 07/28/21 22:00 07/30/21 22:23 Coreg 12.5 Mg PO 08/27/21 21:59 25 mg BID LEA Administration Clonidine 0.1 mg 07/30/21 17:00 07/31/21 07:39 Catapres 0.1 Mg PO 08/29/21 16:52 0.1 mg QIDPRN PRN Administration HYPERTENSION Famotidine 20 mg 07/28/21 19:00 07/30/21 19:52 Pepcid 20 Mg PO 08/27/21 18:59 20 mg 1900 LEA Administration Guaifenesin/Codeine Phosphate 10 ml 07/29/21 12:13 07/29/21 21:08 Robitussin Ac Syrup Unit Dose Cup PO 08/28/21 12:12 10 ml QIDP PRN Administration COUGH Hydrochlorothiazide 25 mg 07/28/21 19:00 07/30/21 19:53 Hydrodiuril 25 Mg PO 08/27/21 18:59 25 mg 1900 LEA Administration Ceftriaxone Sodium/Dextrose 1 g in 50 mls @ 100 mls/hr 07/28/21 13:00 07/30/21 10:12 Rocephin 1 Gm-D5w 50 Ml Bag IV 08/01/21 12:59 100 mls/hr Q24H10 LEA Administration Azithromycin 500 mg in 250 mls @ 125 mls/hr 07/28/21 13:00 07/30/21 08:22 Zithromax 500 Mg/ 250 Ml Nacl Premix IV 08/27/21 12:59 125 mls/hr DAILY LEA Administration Sodium Chloride 1,000 mls @ 50 mls/hr 07/28/21 13:30 07/30/21 13:10 Sodium Chloride 0.9% 1000 Ml IV 08/27/21 13:29 50 mls/hr .Q20H LEA Administration Lisinopril 20 mg 07/28/21 19:00 07/30/21 19:54 Zestril 20 Mg PO 08/27/21 18:59 20 mg 1900 LEA Administration Methylprednisolone Sodium Succinate 40 mg 07/30/21 12:30 07/30/21 22:22 Solu-Medrol 40 Mg IV 08/29/21 12:29 40 mg Q12HT LEA Administration Miscellaneous Information 1 each 07/28/21 15:45 Medication Intervention MC 08/27/21 15:44 .RN TO CHECK LEA Pantoprazole Sodium 40 mg 07/28/21 19:00 07/30/21 19:54 Protonix 40mg Tablet PO 08/27/21 18:59 40 mg 1900 LEA Administration Sterile Water 1 ml 07/30/21 12:30 07/30/21 22:30 Sterile H2o 10 Ml IJ 08/29/21 12:29 1 ml Q12HT LEA Administration Discontinued Medications Generic Name Dose Route Start Last Admin Trade Name Freq PRN Reason Stop Dose Admin Amlodipine Besylate 5 mg 07/30/21 09:12 07/30/21 09:39 Norvasc 5 Mg PO 07/30/21 09:13 5 mg STAT ONE Administration Clonidine 0.1 mg 07/30/21 16:53 Catapres 0.1 Mg PO 08/29/21 16:59 QID PRN HYPERTENSION Guaifenesin/Dextromethorphan 10 ml 07/29/21 07:57 07/29/21 08:24 Robitussin-Dm Syrup PO 08/28/21 07:56 10 ml Q4H PRN PRN Administration COUGH Ketorolac Tromethamine 30 mg 07/30/21 09:12 07/30/21 09:41 Toradol 30 Mg Injection IV 07/30/21 09:13 30 mg ONCE ONE Administration Non-Formulary Medication 1 tab 07/28/21 19:00 Lisinopril/Hydrochlorothiazide [Lisinopril-Hctz 20-25 Mg Tab] PO 08/27/21 18:59 1900 LEA Sterile Water 1 ml 07/30/21 12:30 Sterile H2o 10 Ml IJ 08/29/21 12:29 Q12H LEA Intake & Output (Last 24 hours) 07/28/21 07/29/21 07/30/21 07/31/21 11:59 11:59 11:59 11:59 Intake Total 7 3620 3464 Output Total 900 Balance 2056 3620 2564 Weight 111.9 kg Microbiology Results (Last 24 hours) 07/28/21 13:29 Blood Blood Culture Gram Stain - Pending 07/28/21 13:29 Blood Blood Culture - Preliminary NO GROWTH TO DATE 07/28/21 13:23 Blood Blood Culture Gram Stain - Pending 07/28/21 13:23 Blood Blood Culture - Preliminary NO GROWTH TO DATE Laboratory Results (Last 24 hours) 07/31/21 07/30/21 06:20 09:25 WBC 16.9 H RBC 4.67 Hgb 11.2 L Hct 36.7 L MCV 78.6 MCH 24.0 L MCHC 30.5 L RDW 14.3 H Plt Count 322 MPV 10.3 Gran % 92.8 H Eos # (Auto) 0.01 Absolute Lymphs (auto) 0.63 L Absolute Monos (auto) 0.56 Lymphocytes % 3.7 L Monocytes % 3.3 Eosinophils % 0.1 Basophils % 0.1 Absolute Granulocytes 15.73 H Basophils # 0.01 Uric Acid 8.8 H Orders (Last 24 hours) Category Date Time Status CHEST 2 VIEWS (PA AND LAT) Routine Exams 07/31/21 07:00 Completed CBC W DIFF AM.LAB Lab 07/31/21 06:20 Completed CMP AM.LAB Lab 07/31/21 06:20 Received Uric Acid Urgent Lab 07/30/21 09:25 Completed Allopurinol 100 mg [Zyloprim 100 mg] Med 07/30/21 12:11 Active 100 mg PO DAILY Amlodipine Besylate 5 mg [Norvasc 5 mg] Med 07/30/21 09:12 Discontinued 5 mg PO STAT ONE Clonidine HCl 0.1 mg [Catapres 0.1 MG] Med 07/30/21 16:53 Discontinued 0.1 mg PO QID PRN Clonidine HCl 0.1 mg [Catapres 0.1 MG] Med 07/30/21 17:00 Active 0.1 mg PO QIDPRN PRN KETOROLAC trometh 30 mg Inj [TORAdol 30 mg Injection Med 07/30/21 09:12 Discontinued ] 30 mg IV ONCE ONE Methylprednisolone Sod Suc 40M [solu-MEDROL 40 MG] Med 07/30/21 12:30 Active 40 mg IV Q12HT Water For Injection,Sterile [Sterile H2O 10 ml] Med 07/30/21 12:30 Discontinued 1 ml IJ Q12H Water For Injection,Sterile [Sterile H2O 10 ml] Med 07/30/21 12:30 Active 1 ml IJ Q12HT FLUTTER [Flutter Therapy] UD RT 07/30/21 12:11 Active Patient Care Notes (Last 24 hours) 07/30/21 09:23 Case Management Note by Autumn Stover PATIENT CONTINUES TO DENY ANY NEW NEEDS REGARDING DC AT THIS TIME. 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 Initialized on 07/30/21 09:23 - END OF NOTE Code(s): J44.1 - CHRONIC OBSTRUCTIVE PULMONARY DISEASE W (ACUTE) EXACERBATION (2) Bronchitis Current Visit: Yes Status: Acute Code(s): J40 - BRONCHITIS, NOT SPECIFIED ACUTE OR CHRONIC - Discharge Discharge Date: 07/31/21 Disposition: Home, Self-Care Condition: Stable Prescriptions: New Albuterol 2.5 mg/3 ml Neb [Proventil 2.5 mg/3 ml Neb] 2.5 mg IH QIDRT Allopurinol 100 mg [Zyloprim 100 mg] 100 mg PO DAILY 30 Days #30 tablet Methylprednisolone Packet [Medrol Dosepack] 4 mg PO UD #21 packet Cephalexin Mh 500 mg [Keflex 500 mg] 500 mg PO QID 7 Days #28 Guaifenesin/Codeine 5 ml [Robitussin AC Syrup Unit Dose Cup] 10 ml PO QIDP PRN 5 Days #100 udcup PRN Reason: Cough Cephalexin Monohydrate [Cephalexin] 500 mg PO QID 7 Days #30 tablet Continue Lisinopril/Hydrochlorothiazide [Lisinopril-Hctz 20-25 mg Tab] 1 tab PO 1900 Famotidine 20 mg [Pepcid 20 MG] 1 tab PO 1900 PANTOPRAZOLE 40 mg Tablet [Protonix 40MG Tablet] 1 tab PO 1900 Albuterol 2.5 mg/3 ml Neb [Proventil 2.5 mg/3 ml Neb] 2.5 mg IH Q4H PRN PRN PRN Reason: Shortness Of Breath/Wheezing Fluticasone/Umeclidin/Vilanter [Trelegy Ellipta 100-62.5-25] 1 each IH DAILY Carvedilol 25 mg PO BID Albuterol Sulfate [Albuterol Sulfate Hfa] 1 inh IH Q4H PRN PRN PRN Reason: Shortness Of Breath/Wheezing Aspirin [Aspirin EC] 81 mg PO 1900 Amlodipine Besylate 5 mg [Norvasc 5 mg] 5 mg PO 1900 30 Days #30 tablet Follow up with: ANISHA BENITEZ MD [Primary Care Provider] - 5 Days Forms: Work/School Release Form
[2021-07-31 08:17] VITALS: PULSE 63; O2SAT 95
[2021-07-31] MEDS: COREG 12.5 MG PO SCH (08:51)
[2021-07-31] MEDS: ZYLOPRIM 100 MG PO SCH (08:52)
[2021-07-31] MEDS: solu-MEDROL 40 MG IV SCH (08:53)
[2021-07-31] MEDS: Sterile H2O 10 ml IJ SCH (08:53)
[2021-07-31] MEDS: ROCEPHIN 1 Gm-D5w 50 ml Bag** 1 G/50 ML IVPB IV SCH (08:53)
[2021-07-31] MEDS: Zithromax 500 MG/ 250 ML NaCl Premix 500 MG/250 ML IVPB IV SCH (08:54)
== END 2021-07-31 12:08 | disposition home or self-care (01) ==
LOC: MED SURG 11:38
PROVIDERS: ADMIT General Practice; ATTEND General Practice
DX: J44.1 Chronic obstructive pulmonary disease with (acute) exacerbation (principal); I10 Essential (primary) hypertension; Z79.899 Other long term (current) drug therapy; Z20.822 Contact with and (suspected) exposure to COVID-19
CPT/HCPCS: 36415; 71046; 80048; 80053; 84550; 85025; 87040; 93268; 94640; 94667; 94668; 94760; G0378; U0003; J0456; J0696; J1885; J2920; J7609; A9270-GY